=== PATIENT | male | born 1960 | race Caucasian/White ===

== ENCOUNTER → 2016-08-18 | Outpatient (CLI) | payer MEDICARE ==
[2016-08-18 10:19] LABS: Blood Urea Nitrogen 9 mg/dL (9-20); Non-African American GFR(MDRD) >60 (>60 ml/min/1.73 sqM)
--- NOTE | 2016-08-18 12:21 | CT ---
CT angiogram of the thoracic and abdominal aorta HISTORY: Marfan syndrome, aneurysm repair Helical acquisition obtained through the aorta pre- and postadministration of 100 cc Omni 350 IV. Thr ee-dimensional reconstructions performed on an alternate workstation The aortic root shows metallic density compatible with repair change. Diameter is approximately 4.2 c m at the level of the ascending aorta, aortic root. Proximal descending aorta measures approximately 3.2 cm. At the aortic hiatus the aorta measures approximately 2.8 cm, at the level of the infrarenal abdominal aorta diameter is approximately 2 cm, common iliac arteries are not aneurysmal. Internal an d external iliac arteries, common iliac arteries are patent. Inferior mesenteric, superior mesenteric , bilateral renal arteries are patent, celiac axis is patent. The heart is enlarged. Coronary artery calcifications are present. Patient is post median sternotomy. IMPRESSION:: Postop changes. Coronary artery disease and cardiomegaly. Ascending aortic aneurysm show s postop change, diameter of approximately 4.2 cm at the level of the aortic root where it measured a pproximately 4 cm on previous exam.
== END | disposition home or self-care (01) ==
LOC: RADCTMAIN 09:43 → EEVIPCON 11:00
PROVIDERS: ATTEND Internal Medicine Interventional Cardiology
DX: I25.10 Atherosclerotic heart disease of native coronary artery without angina pectoris (principal); I51.7 Cardiomegaly; I71.2 Thoracic aortic aneurysm, without rupture; Z98.890 Other specified postprocedural states
CPT/HCPCS: 82565; 84520; 75635; 71275; 36415; Q9967

== ENCOUNTER → 2017-09-11 | Outpatient (CLI) | payer MEDICARE ==
[2017-09-11 07:08] LABS: Blood Urea Nitrogen 10 mg/dL (9-20)
--- NOTE | 2017-09-11 08:19 | CT ---
EXAMINATION TYPE: CT angio chest DATE OF EXAM: 09/11/2017 7:57 AM COMPARISON: 08/18/2016 HISTORY: Marfan's syndrome CT DLP: 489 mGycm Automated exposure control for dose reduction was used. CONTRAST: CTA scan of the thorax is performed with IV Contrast, patient injected with 100 mL of Omnipaque 350, pulmonary embolism protocol. . FINDINGS: LUNGS: There are 2 pulmonary nodules within the right middle lobe measuring 2 mm which are retrospect ively stable. Additional pulmonary nodule within the left upper lobe measuring 3 mm retrospectively s table no pneumothorax, consolidation, or pleural effusion. MEDIASTINUM: The aortic root shows metallic density compatible with repair change. Diameter is approx imately 4.5 cm at the level of the ascending aorta, aortic root. Proximal descending aorta measures a pproximately 3.2 cm. At the aortic hiatus the aorta measures approximately 2.8 cm, at the level of th e infrarenal abdominal aorta diameter is approximately 2 cm, common iliac arteries are not aneurysmal . Internal and external iliac arteries, common iliac arteries are patent. Inferior mesenteric, superi or mesenteric, bilateral renal arteries are patent, celiac axis is patent. The heart is enlarged. Coronary artery calcifications are present. Patient is post median sternotomy. OTHER: There is a lesion within the right lobe of the liver measuring 3.9 cm which is only partially imaged. This is noted dating back to 2010 CT of the abdomen. Incompletely evaluated on today's exam it does appear increased in size now measuring 4 cm likely related to a hemangioma. Hypertrophic and degenerative change of the spine. No evidence of dural ectasia. IMPRESSION: 1. Postsurgical change involving the aorta with a stable area of mild aneurysmal dilation involving t he aortic root measuring 4.5 cm in greatest dimension. 2. Hepatic lesion is only partially included but is been reported dating back to 2010. Appears increa sed in size now measuring 3.9 cm but felt most likely related to hemangioma.
== END | disposition home or self-care (01) ==
LOC: RADCTMAIN 06:18
PROVIDERS: ATTEND Internal Medicine Interventional Cardiology
DX: I77.819 Aortic ectasia, unspecified site (principal); K76.9 Liver disease, unspecified; Q87.40 Marfan syndrome, unspecified; Z98.890 Other specified postprocedural states
CPT/HCPCS: 82565; 84520; 71275; 36415; Q9967

== ENCOUNTER → 2018-10-27 | Outpatient (CLI) | payer MEDICARE ==
--- NOTE | 2018-10-28 09:04 | CT ---
EXAMINATION TYPE: CT angio chest DATE OF EXAM: 10/27/2018 COMPARISON: 09/11/2017 HISTORY: Follow up for open heart surgery. History of Marfan's syndrome. CT DLP: 874 mGycm. Automated Exposure Control for Dose Reduction was Utilized. CONTRAST: CTA scan of the thorax is performed without and with IV Contrast, patient injected with 100ml mL of I sovue 370, pulmonary embolism protocol. MIP Images are created on CT scanner and reviewed. FINDINGS: LUNGS: The lungs are grossly clear, there is no concerning parenchymal mass or nodule identified. T here is no pleural effusion or pneumothorax seen. The tracheobronchial tree is patent. MEDIASTINUM: The unenhanced images demonstrate no evidence of intramural hematoma. There is postsurgi pita change of the aortic root and ascending thoracic aorta with annuloplasty performed. The aortic ro ot just above the sinotubular junction is mildly enlarged measuring 4.2 cm. The ascending thoracic ao rta is also within normal limits measuring up to 3.7 cm. There is a conventional three-vessel branch pattern of the aortic arch. Ascending thoracic aorta is slightly tortuous but measures within normal limits up to 2.7 cm. Severe coronary calcifications are seen predominating within the left anterior descending coronary ar carlos. Heart is upper limits of normal in size without pericardial effusion. There is satisfactory enh ancement of the main pulmonary artery, there is no CT evidence for central pulmonary embolism. There are no greater than 1 cm hilar or mediastinal lymph nodes. OTHER: There is a small hiatal hernia seen. The partially visualized 3.9 cm segment IVb hepatic lesio n is present dating back to 2010 [address] and incompletely characterized on this examination. Moderate mult ilevel degenerative disc disease of the thoracic Sternotomy wires are present. IMPRESSION: 1. There is redemonstrated of postsurgical change of the aortic root and ascending thoracic aorta. Th e previously seen aneurysmal dilatation of the aortic root measuring up to 4.5 cm and lesser on today 's examination with the aortic root measuring only 4.2 cm. Differences in slice selection or obliquit y could account for these changes in measurement. 2. Hepatic lesion remains similar again seen dating back to 2010.
== END | disposition home or self-care (01) ==
LOC: RADCTMAIN 16:32
PROVIDERS: ATTEND Internal Medicine Interventional Cardiology
DX: Q25.43 Congenital aneurysm of aorta (principal); K76.9 Liver disease, unspecified; Q87.40 Marfan syndrome, unspecified
CPT/HCPCS: 71275; Q9967

== ENCOUNTER → 2018-12-24 | Day surgery (SDC) | payer MEDICARE ==
[2018-12-21 12:10] VITALS: BMI 29.2
[~2018-12-24] MED LIST: BUPIVACAINE (PF) 0.5% 30 ML VIAL SQ ONE; DEXAMETHASONE SOD PHOSPHATE 10 MG/ML 1 ML VIAL IV ONE; HYDROmorphone 0.5 MG/0.5 ML SYRINGE IVP PRN; LACTATED RINGERS 1,000 ML IV SCH; LIDOCAINE 1% 20 ML VIAL (10MG/ML) FOR IV START INTRADERMA ONE; LIDOCAINE 1%-EPI 1:100,000 30 ML VIAL SQ ONE; MIDAZOLAM (PF) 2 MG/2 ML VIAL IVP ONE; MIDAZOLAM 2 MG/2 ML VIAL IV PRN; ONDANSETRON 4 MG/2 ML VIAL IVP ONE; Pre Op ABX Message 1 EACH MISC MISCELLANE ONE; ROPIVACAINE 5 MG/ML 30 ML VIAL ONE; SCOPOLAMINE 1.5MG/72HR PATCH TRANSDERM ONE; diphenhydrAMINE 50 MG/ML 1 ML VIAL ONE; fentaNYL (PF) 50 MCG/ML 2 ML AMP IVP ONE
[2018-12-24 11:55] VITALS: TEMP 98.2
--- NOTE | 2018-12-24 12:24 | P.ANPRN ---
Procedure Note - Anesthesia - Nerve Block Performed Right Axillary Single Time Out Performed: Yes Date of Procedure: 12/24/18 Procedure Start Time: 12:12 Procedure Stop Time: 12:18 Location of Patient Procedure: PreOp Indication: Acute Post-Operative Pain, Dx/Pain Location, Requested by physician Sedation Type: Sedate with meaningful contact maintained Preparation: Sterile Prep Position: Supine Catheter: None Needle Types: Pajunk Needle Gauge: 21 Technique: Ultrasound Injectate: 0.5% Ropivacaine (see comment for volume) (20ml) Blood Aspirated: No Pain Paresthesia on Injection Noted: No Resistance on Injection: Normal Events: Uneventful and Well Tolerated
[2018-12-24 13:31] VITALS: RESP 16
--- NOTE | 2018-12-24 13:53 | P.OP ---
Date of Procedure: 12/24/18 Preoperative Diagnosis: Right carpal tunnel syndrome Postoperative Diagnosis: Right carpal tunnel syndrome Procedure(s) Performed: Right endoscopic carpal tunnel release Anesthesia: MAC, regional, local Surgeon: Jamey Colon Estimated Blood Loss (ml): 1 Condition: stable Disposition: same day Indications for Procedure: The patient is a pleasant 58-year-old male who was diagnosed with right carpal tunnel syndrome. Treatment options (and associated risks and benefits) were discussed in the office. The patient and his sister (who is his legal guardian) elected to proceed with surgical release. In preop, they denied any additional questions or concerns. Consent forms were signed. The operative site was confirmed and marked. Description of Procedure: The patient was administered a regional block by the anesthesia team and then was brought to the operating suite. He was positioned supine with the operative limb on an arm board. A tourniquet was placed on the operative arm. A time-out was performed, confirming patient identifiers, the operative side, site and the procedure to be performed: all team members expressed agreement. The right upper extremity was then prepped and draped in standard, sterile fashion. The limb was exsanguinated with an Esmarch and the tourniquet was inflated. Loupe magnification was used throughout the case for optimum visualization. A 1.5 cm transverse incision was marked just proximal to the wrist flexion crease, in line with the radial border of the ring finger. The skin was sharply incised and the subcutaneous tissues were bluntly spread. The volar carpal fascia was identified and sharply incised. A synovial elevator was used to release adhesions on the underside of the transverse carpal ligament. The washboard effect was palpable but the ligament was noted to be quite short. A dilator was inserted to sound and enlarge the carpal tunnel. The hamate hook was palpable ulnarly. The side-specific guide and camera were inserted. The transverse carpal ligament was clearly visualized above. The distal edge of the ligament was identified and palpated with a probe. A rasp was used to clear synovial adhesions on the undersurface of the ligament. The endoscopic blade was inserted and the distal half of the ligament was sharply incised. Residual distal transverse fibers were released and then the proximal portion of the ligament was divided. Wide release of ligament was visually confirmed. The camera was removed. The volar carpal fascia proximal and distal to the incision was released with scissors under direct visualization. The nerve had a flattened appearance and was firmly encased in thick perineural tissue. A neurolysis was performed at the level of the incision, extending 3 cm proximally and distally. After release of these adhesions, the appeared much more mobile. The tourniquet was released after 22 minutes at 250 mm Hg. Good hemostasis obtained with held pressure. The wound was thoroughly irrigated with normal saline. The incision was closed with interrupted 4-0 Nylon sutures. Additional local anesthetic with epinephrine was injected for adjunctive postoperative pain control and hemostasis. A soft, sterile dressing was applied. All sponge, needle and instrument counts were correct at the end of the case. The patient tolerated the procedure well and was transferred to recovery in stable condition.
[2018-12-24 15:06] VITALS: BP 157/72; PULSE 88
== END | disposition home or self-care (01) ==
LOC: OR 11:27
PROVIDERS: ATTEND Orthopaedic Surgery
DX: G56.03 Carpal tunnel syndrome, bilateral upper limbs (principal); I10 Essential (primary) hypertension; M19.041 Primary osteoarthritis, right hand; E78.5 Hyperlipidemia, unspecified; Q87.40 Marfan syndrome, unspecified; Z97.3 Presence of spectacles and contact lenses; Z98.890 Other specified postprocedural states; Z79.899 Other long term (current) drug therapy; Z83.3 Family history of diabetes mellitus; Z82.49 Family history of ischemic heart disease and other diseases of the circulatory system
CPT/HCPCS: 64417; 64721; J1200; J1100; J2405; J3010; J2795; J2250

== ENCOUNTER 2019-02-08 06:30 | Day surgery (SDC) | payer MEDICARE ==
[2019-02-04 15:44] VITALS: BMI 29.2
[~2019-02-08 06:30] MED LIST changes: -BUPIVACAINE (PF) 0.5% 30 ML VIAL SQ ONE; -LIDOCAINE 1% 20 ML VIAL (10MG/ML) FOR IV START INTRADERMA ONE; +LIDOCAINE 1% 20 ML VIAL (10MG/ML) FOR IV START INTRADERMA PRN; -LIDOCAINE 1%-EPI 1:100,000 30 ML VIAL SQ ONE; -MIDAZOLAM (PF) 2 MG/2 ML VIAL IVP ONE; -ROPIVACAINE 5 MG/ML 30 ML VIAL ONE; -diphenhydrAMINE 50 MG/ML 1 ML VIAL ONE; -fentaNYL (PF) 50 MCG/ML 2 ML AMP IVP ONE
[2019-02-08] MEDS ORDERED: MIDAZOLAM 2 MG/2 ML VIAL ONE (07:41)
[2019-02-08] MEDS ORDERED: PROPOFOL 10 MG/ML 20 ML VIAL IV ONE (07:41)
[2019-02-08] MEDS ORDERED: diphenhydrAMINE 50 MG/ML 1 ML VIAL ONE (07:41)
[2019-02-08] MEDS ORDERED: fentaNYL (PF) 50 MCG/ML 2 ML AMP ONE (07:41)
[2019-02-08] MEDS ORDERED: LIDOCAINE 1% INJ 10MG/ML (20 ML MDV) ONE (07:41)
[2019-02-08] MEDS ORDERED: LIDOCAINE 1%-EPI 1:100,000 30 ML VIAL SQ ONE (07:56)
[2019-02-08] MEDS ORDERED: BUPIVACAINE (PF) 0.5% 30 ML VIAL SQ ONE ×2 (08:00→08:33)
[2019-02-08 08:50] VITALS: TEMP 98.6
--- NOTE | 2019-02-08 08:59 | P.OP ---
Date of Procedure: 02/08/19 Preoperative Diagnosis: Left carpal tunnel syndrome Postoperative Diagnosis: Left carpal tunnel syndrome Procedure(s) Performed: Left endoscopic carpal tunnel release Anesthesia: MAC, local Surgeon: Jamey Colon Estimated Blood Loss (ml): 1 Condition: stable Disposition: PACU Indications for Procedure: The patient is a 58-year-old male who was diagnosed with bilateral carpal tunnel syndrome and previously underwent surgical release of his right side. He returns with persistent symptoms on the left. Treatment options were again reviewed and he elected to proceed with surgical release. In preop, the patient and his sister denied any additional questions or concerns. Consent forms were signed. The operative site was confirmed and marked. Description of Procedure: The patient was positioned supine with the left arm on an arm board. A tourniquet was applied. Monitored anesthesia was administered uneventfully. A time-out was performed, confirming patient identifiers, the operative side, site and the procedure to be performed: all team members expressed agreement. Using aseptic technique, local anesthetic was injected into the subcutaneous tissues around the planned incision. The left upper extremity was then prepped and draped in standard, sterile fashion. The limb was exsanguinated with an Esmarch and the tourniquet was inflated. Loupe magnification was used throughout the case for optimum visualization. A 1.5 cm transverse incision was marked just proximal to the wrist flexion crease, in line with the radial border of the ring finger. The skin was sharply incised and the subcutaneous tissues were bluntly spread. The volar carpal fascia was identified and sharply incised. The fascia was quite tight. To facilitate distal exposure, the proximal volar carpal/antebrachial fascia was released with scissors under direct visualization. A synovial elevator was inserted and used to release adhesions on the underside of the transverse carpal ligament. The washboard effect was palpable. A dilator was inserted to sound and enlarge the carpal tunnel. The hamate hook was palpable ulnarly. The side-specific guide and camera were inserted. The transverse carpal ligament was clearly visualized above. The distal edge of the ligament was identified and palpated with a probe. A rasp was used to clear the remaining synovial adhesions. The endoscopic blade was inserted and the distal half of the ligament was sharply incised. Residual distal transverse fibers were released and then the proximal portion of the ligament was divided. The ligament was very dense and the cut leaflets sprung apart widely after release. The camera was removed. At the level of the incision, the median nerve was encased in a sheet of thick perineural tissue, causing persistent compression. A neurolysis was performed which substantially improved the appearance and mobility of the nerve. The tourniquet was released after 25 minutes at 250 mmHg. Good hemostasis was obtained with held pressure. The wound was thoroughly irrigated with normal saline. The incision was closed with interrupted 4-0 Nylon sutures. Marcaine without epinephrine was injected for adjunctive postoperative pain control. A soft, sterile dressing was applied. All sponge, needle and instrument counts were correct at the end of the case. The patient tolerated the procedure well and was transferred to recovery in stable condition.
[2019-02-08 09:51] VITALS: BP 139/85; PULSE 70; RESP 16
== END 2019-02-08 10:10 | disposition home or self-care (01) ==
LOC: OR 06:30
PROVIDERS: ATTEND Orthopaedic Surgery
DX: G56.02 Carpal tunnel syndrome, left upper limb (principal); M24.542 Contracture, left hand; M24.541 Contracture, right hand; Q87.40 Marfan syndrome, unspecified; I10 Essential (primary) hypertension; E78.5 Hyperlipidemia, unspecified; F32.9 Major depressive disorder, single episode, unspecified; Z79.82 Long term (current) use of aspirin; Z79.899 Other long term (current) drug therapy; Z97.3 Presence of spectacles and contact lenses; Z83.3 Family history of diabetes mellitus; Z82.49 Family history of ischemic heart disease and other diseases of the circulatory system
CPT/HCPCS: 29848; J2250; J1200; J1100; J2405; J2001; J3010; J2704

== ENCOUNTER → 2019-12-16 | Outpatient (CLI) | payer MEDICARE ==
--- NOTE | 2019-12-16 11:47 | CT ---
EXAMINATION TYPE: CT angio chest DATE OF EXAM: 12/16/2019 11:32 AM COMPARISON: 10/27/2018 HISTORY: Marfans syndrome. CT DLP: 944.3 mGycm Automated exposure control for dose reduction was used. CONTRAST: CTA scan of the thorax is performed with IV Contrast, patient injected with 100 mL of Isovue 370, pul monary embolism protocol. . FINDINGS: LUNGS: The lungs are grossly clear, there is no concerning parenchymal mass or nodule identified. T here is no pleural effusion or pneumothorax seen. The tracheobronchial tree is patent. 2 mm calcifie d granuloma left upper lobe. Additional tiny 1 mm nodule too small to characterize superior segment r ight lower lobe image 27. The noncalcified 2 mm nodule and 1 mm nodule image 36 superior segment righ t lower lobe. Findings retrospectively stable from prior exam. MEDIASTINUM: The unenhanced images demonstrate no evidence of intramural hematoma. There is postsurgical change of the aortic root and ascending thoracic aorta with annuloplasty performed. The aortic root just above the sinotubular junction is mildly enlarged measuring 4.2 cm. The ascending thoracic aorta is also w ithin normal limits measuring up to 3.7 cm. There is a conventional three- vessel branch pattern of t he aortic arch. Ascending thoracic aorta is slightly tortuous but measures within normal limits up to 2.7 cm. Severe coronary calcifications are seen predominating within the left anterior descending coronary ar carlos. Heart is upper limits of normal in size without pericardial effusion. There is satisfactory enh ancement of the main pulmonary artery, there is no CT evidence for central pulmonary embolism. There are no greater than 1 cm hilar or mediastinal lymph nodes. OTHER: There is a small hiatal hernia seen. The partially visualized 3.9 cm segment IVb hepatic lesi on is present dating back to [address] and incompletely characterized on this examination. Moderate mul tilevel degenerative disc disease of the thoracic Sternotomy wires are present. Trace of gynecomastia noted. IMPRESSION: 1. Postsurgical changes with stable 4.2 cm mild aneurysmal dilation ascending aorta. 2. Cardiomegaly with coronary artery calcification correlate clinically. 3. Multiple sub-5 mm pulmonary nodules too small to characterize are stable from the prior exam and c ould be followed on a 12 month basis. Largest nodule is calcified compatible with granuloma.
== END | disposition home or self-care (01) ==
LOC: RADCTMAIN 10:43
PROVIDERS: ATTEND Internal Medicine Interventional Cardiology
DX: I71.2 Thoracic aortic aneurysm, without rupture (principal); I51.7 Cardiomegaly; Q87.40 Marfan syndrome, unspecified
CPT/HCPCS: 71275; Q9967

== ENCOUNTER → 2020-01-27 | Outpatient (CLI) | payer MEDICARE ==
[2020-01-27 13:18] LABS: HCT 38.3 % (39.0-53.0); HGB 12.3 gm/dL (13.0-17.5); MCH 26.5 pg (25.0-35.0); MCV 82.8 fL (80.0-100.0); Mean Platelet Volume 8.3; Platelet Count 182 k/uL (150-450); RBC 4.63 m/uL (4.30-5.90); RDW 14.7 % (11.5-15.5); WBC 4.3 k/uL (3.8-10.6)
[2020-01-27 19:39] LABS: Ferritin 71.3 ng/mL (22.0-322.0)
[2020-01-27 20:05] LABS: % Iron Saturation 7.8 (15.00-50.00); African American GFR (CKD) 128.4 (60.0-200.0); Anion Gap 5.4 mmol/L (4.00-12.00); BUN/Creat Ratio 18.33 Ratio (12.00-20.00); Calcium 9.1 mg/dL (8.7-10.3); Carbon Dioxide 27.6 mmol/L (21.6-31.8); Non-African American GFR(CKD) 110.8 (60.0-200.0)
== END | disposition home or self-care (01) ==
LOC: LABWHC1 11:22
PROVIDERS: ATTEND Family Medicine
DX: E78.5 Hyperlipidemia, unspecified (principal); D50.9 Iron deficiency anemia, unspecified; I10 Essential (primary) hypertension
CPT/HCPCS: 36415; 80048; 82728; 83540; 83550; 84450; 84460; 85027

== ENCOUNTER 2021-05-15 18:27 | Emergency (ER) | payer MEDICARE ==
[2021-05-15 19:27] VITALS: TEMP 99.4
--- NOTE | 2021-05-15 20:49 | ED ---
General Adult HPI - General Chief complaint: Upper Respiratory Infection Stated complaint: hypertension, cough Time Seen by Provider: 05/15/21 20:30 Source: patient Mode of arrival: ambulatory Limitations: no limitations - History of Present Illness Initial comments: 60-year-old male with a past medical history of hypertension, Marfan syndrome presents to the emergency room for a chief complaint of not feeling well. Patient has had a cough and congestion for the past couple weeks. Also had a sore throat. Patient's family member at bedside states that the nurse at [facility] called her to tell her his heartbeat was irregular as well. Patient does not have a history of this.Patient has no other complaints at this time including shortness of breath, chest pain, abdominal pain, nausea or vomiting, headache, or visual changes. - Related Data Home Medications Medication Instructions Recorded Confirmed Aspirin 325 mg PO DAILY 12/22/18 05/15/21 Atorvastatin [Lipitor] 20 mg PO DAILY 12/22/18 05/15/21 Multivitamins, Thera [Multivitamin 1 tab PO DAILY 12/22/18 05/15/21 (formulary)] PARoxetine HCL [Paxil] 40 mg PO DAILY 12/22/18 05/15/21 Potassium Chloride [Potassium 30 meq PO DAILY 12/22/18 05/15/21 Chloride ER] Terazosin [Hytrin] 5 mg PO HS 12/22/18 05/15/21 Triamterene-Hctz 37.5-25Mg 1 cap PO DAILY 12/22/18 05/15/21 [Dyazide 37.5-25 Capsule] Verapamil HCl [Verapamil ER] 240 mg PO DAILY 12/22/18 05/15/21 lisinopriL 20 mg PO BID 12/22/18 05/15/21 Cholecalciferol [Vitamin D3 (25 25 mcg PO DAILY 05/15/21 05/15/21 Mcg = 1000 Iu)] Ferrous Sulfate [Feosol] 325 mg PO DAILY 05/15/21 05/15/21 Triamcinolone 0.1% Cream [Kenalog 1 applicatio TOPICAL BID 05/15/21 05/15/21 0.1% Cream] Previous Rx's Medication Instructions Recorded Doxycycline [Vibramycin] 100 mg PO BID 10 Days #20 capsule 05/15/21 Allergies Allergy/AdvReac Type Severity Reaction Status Date / Time No Known Allergies Allergy Verified 05/15/21 22:04 Review of Systems ROS Statement: Those systems with pertinent positive or pertinent negative responses have been documented in the HPI. ROS Other: All systems not noted in ROS Statement are negative. Past Medical History Past Medical History: Hypertension, Syncope Additional Past Medical History / Comment(s): Marfans Syndrome. Mentality of an 9 yr old. History of Any Multi-Drug Resistant Organisms: None Reported Past Surgical History: Coronary Bypass/CABG, Orthopedic Surgery Additional Past Surgical History / Comment(s): Had Aorta rebuilt, knee arthroscopy, right carpal tunnel release December Past Anesthesia/Blood Transfusion Reactions: No Reported Reaction Past Psychological History: Anxiety Smoking Status: Never smoker Past Alcohol Use History: None Reported Past Drug Use History: None Reported - Past Family History Mother Family Medical History: No Reported History General Exam Limitations: no limitations General appearance: alert, in no apparent distress Head exam: Present: atraumatic Eye exam: Present: normal appearance, PERRL, EOMI. Absent: scleral icterus, conjunctival injection ENT exam: Present: normal exam, normal oropharynx, mucous membranes moist, normal external ear exam Neck exam: Present: normal inspection, full ROM. Absent: tenderness Respiratory exam: Present: normal lung sounds bilaterally. Absent: respiratory distress, wheezes Cardiovascular Exam: Present: regular rate, normal rhythm, normal heart sounds GI/Abdominal exam: Present: soft, normal bowel sounds. Absent: distended, tenderness Neurological exam: Present: alert Course Vital Signs 05/15/21 05/15/21 05/15/21 19:24 22:12 22:57 Temperature 99.4 F Pulse Rate 100 96 Respiratory 20 18 Rate Blood Pressure 149/95 156/107 154/98 O2 Sat by Pulse 96 97 Oximetry Medical Decision Making - Medical Decision Making Vitals are stable. Patient is well-appearing. No resp distress. Coronavirus i s negative. Strep is negative. CBC CMP unremarkable. Chest x-ray did show interstitial infiltrates, will be treated with doxycycline. Patient also had an EKG showing a rate controlled atrial fibrillation. Roddy-vasc score is 1 and patient states his doctor had previously not wanted him anticoagulated given his Marfan syndrome. At this time patient is stable for outpatient follow-up for atrial fibrillation. He will return for any worsening symptoms. - Lab Data Result diagrams: 05/15/21 22:12 05/15/21 22:12 Lab Results 05/15/21 05/15/21 05/15/21 Range/Units 19:30 21:11 22:12 WBC 5.6 (3.8-10.6) k/uL RBC 4.97 (4.30-5.90) m/uL Hgb 13.3 (13.0-17.5) gm/dL Hct 40.0 (39.0-53.0) % MCV 80.5 (80.0-100.0) fL MCH 26.7 (25.0-35.0) pg MCHC 33.2 (31.0-37.0) g/dL RDW 15.2 (11.5-15.5) % Plt Count 234 (150-450) k/uL MPV 8.4 Neutrophils % 71 % Lymphocytes % 18 % Monocytes % 8 % Eosinophils % 1 % Basophils % 0 % Neutrophils # 4.0 (1.3-7.7) k/uL Lymphocytes # 1.0 (1.0-4.8) k/uL Monocytes # 0.4 (0-1.0) k/uL Eosinophils # 0.0 (0-0.7) k/uL Basophils # 0.0 (0-0.2) k/uL PT (9.0-12.0) sec INR (<1.2) APTT (22.0-30.0) sec Sodium (137-145) mmol/L Potassium (3.5-5.1) mmol/L Chloride (98-107) mmol/L Carbon Dioxide (22-30) mmol/L Anion Gap mmol/L BUN (9-20) mg/dL Creatinine (0.66-1.25) mg/dL Est GFR (CKD-EPI)AfAm (>60 ml/min/1.73 sqM) Est GFR (CKD-EPI)NonAf (>60 ml/min/1.73 sqM) Glucose (74-99) mg/dL Calcium (8.4-10.2) mg/dL Magnesium (1.6-2.3) mg/dL Total Bilirubin (0.2-1.3) mg/dL AST (17-59) U/L ALT (4-49) U/L Alkaline Phosphatase (38-126) U/L Total Protein (6.3-8.2) g/dL Albumin (3.5-5.0) g/dL Coronavirus (PCR) Not Detected (Not Detectd) Group A Strep Rapid Negative (Negative) 05/15/21 05/15/21 Range/Units 22:12 22:12 WBC (3.8-10.6) k/uL RBC (4.30-5.90) m/uL Hgb (13.0-17.5) gm/dL Hct (39.0-53.0) % MCV (80.0-100.0) fL MCH (25.0-35.0) pg MCHC (31.0-37.0) g/dL RDW (11.5-15.5) % Plt Count (150-450) k/uL MPV Neutrophils % % Lymphocytes % % Monocytes % % Eosinophils % % Basophils % % Neutrophils # (1.3-7.7) k/uL Lymphocytes # (1.0-4.8) k/uL Monocytes # (0-1.0) k/uL Eosinophils # (0-0.7) k/uL Basophils # (0-0.2) k/uL PT 11.2 (9.0-12.0) sec INR 1.1 (<1.2) APTT 25.2 (22.0-30.0) sec Sodium 137 (137-145) mmol/L Potassium 3.8 (3.5-5.1) mmol/L Chloride 105 (98-107) mmol/L Carbon Dioxide 24 (22-30) mmol/L Anion Gap 8 mmol/L BUN 11 (9-20) mg/dL Creatinine 0.50 L (0.66-1.25) mg/dL Est GFR (CKD-EPI)AfAm >90 (>60 ml/min/1.73 sqM) Est GFR (CKD-EPI)NonAf >90 (>60 ml/min/1.73 sqM) Glucose 101 H (74-99) mg/dL Calcium 8.6 (8.4-10.2) mg/dL Magnesium 2.1 (1.6-2.3) mg/dL Total Bilirubin 0.7 (0.2-1.3) mg/dL AST 27 (17-59) U/L ALT 25 (4-49) U/L Alkaline Phosphatase 94 (38-126) U/L Total Protein 6.8 (6.3-8.2) g/dL Albumin 3.8 (3.5-5.0) g/dL Coronavirus (PCR) (Not Detectd) Group A Strep Rapid (Negative) Disposition Clinical Impression: Atrial fibrillation with controlled ventricular rate, Pneumonia Disposition: HOME SELF-CARE Condition: Good Instructions (If sedation given, give patient instructions): A-fib (Atrial Fibrillation) (ED), Pneumonia (ED) Additional Instructions: Please take medications as directed. Please follow-up with your doctor in one to 2 days to discuss findings in the ER as well as atrial fibrillation. Return to the emergency room for any worsening symptoms. Prescriptions: Doxycycline [Vibramycin] 100 mg PO BID 10 Days #20 capsule Is patient prescribed a controlled substance at d/c from ED?: No Referrals: Haile Bauer DO [Primary Care Provider] - 1-2 days Time of Disposition: 23:00
--- NOTE | 2021-05-15 22:07 | XR ---
EXAMINATION TYPE: XR chest 2V DATE OF EXAM: 05/15/2021 COMPARISON: 01/23/2016 HISTORY: Cough TECHNIQUE: FINDINGS: There are sternal wires. Heart is borderline enlarged. There is no heart failure. There is coarsening of the interstitial markings. IMPRESSION: Mild pulmonary interstitial infiltrates appear new compared to old exam. Borderline cardi omegaly.
[2021-05-15 22:13] VITALS: PULSE 96; RESP 18
[2021-05-15 22:29] LABS: Basophils % (A) 0 %; Eosinophils % (A) 1 %; HGB 13.3 gm/dL (13.0-17.5); Lymphocytes % (A) 18 %; MCH 26.7 pg (25.0-35.0); MCHC 33.2 g/dL (31.0-37.0); MCV 80.5 fL (80.0-100.0); Mean Platelet Volume 8.4; Monocytes # (A) 0.4 k/uL (0-1.0); Monocytes % (A) 8 %; Neutrophils % (A) 71 %; Platelet Count 234 k/uL (150-450); RBC 4.97 m/uL (4.30-5.90); RDW 15.2 % (11.5-15.5); WBC 5.6 k/uL (3.8-10.6)
[2021-05-15 22:42] LABS: INR 1.1 (<1.2); Partial Thromboplastin Time 25.2 sec (22.0-30.0); Prothrombin Time 11.2 sec (9.0-12.0)
[2021-05-15 22:45] LABS: ALT 25 U/L (4-49); AST 27 U/L (17-59); African American GFR (CKD) >90 (>60 ml/min/1.73 sqM); Albumin 3.8 g/dL (3.5-5.0); Alkaline Phosphatase 94 U/L (38-126); Anion Gap 8 mmol/L; Blood Urea Nitrogen 11 mg/dL (9-20); Calcium 8.6 mg/dL (8.4-10.2); Carbon Dioxide 24 mmol/L (22-30); Chloride 105 mmol/L (98-107); Glucose 101 mg/dL (74-99); Magnesium 2.1 mg/dL (1.6-2.3); Non-African American GFR(CKD) >90 (>60 ml/min/1.73 sqM); Potassium 3.8 mmol/L (3.5-5.1); Sodium 137 mmol/L (137-145); Total Bilirubin 0.7 mg/dL (0.2-1.3); Total Protein 6.8 g/dL (6.3-8.2)
[2021-05-15 22:57] VITALS: BP 154/98
[2021-05-15] MEDS ORDERED: DOXYCYCLINE 100 MG CAP PO STA (22:59)
== END 2021-05-15 23:20 | disposition home or self-care (01) ==
LOC: EC 18:27
DX: J18.9 Pneumonia, unspecified organism (principal); I48.91 Unspecified atrial fibrillation; I10 Essential (primary) hypertension; F41.9 Anxiety disorder, unspecified; Z79.82 Long term (current) use of aspirin; Z79.899 Other long term (current) drug therapy; Z95.1 Presence of aortocoronary bypass graft; Z20.822 Contact with and (suspected) exposure to COVID-19
CPT/HCPCS: 36415; 71046; 80053; 83735; 85025; 85610; 85730; 87081; 87430; 87635; 93005; 99284

== ENCOUNTER → 2022-01-09 | Outpatient (CLI) | payer MEDICARE ==
--- NOTE | 2022-01-09 14:29 | CT ---
CT CHEST FOR PULMONARY EMBOLISM. EXAMINATION TYPE: CT angio chest DATE OF EXAM: 01/09/2022 INDICATION: Marfans syndrome. CT DLP: 1762.8 mGycm, Automated exposure control for dose reduction was used. CONTRAST: Patient injected with 100 ML mL of Isovue 370. COMPARISON: 12/16/2019 TECHNIQUE: CT of the chest is performed on a spiral scan at 2 mm thick sections. Study is performed with intravenous contrast timed for evaluation for the aorta. This will limit additional portions of the evaluation. 3-D MIP images reconstructed by the technologist are reviewed on the computer in the coronal and sagittal planes. FINDINGS: There is a three-vessel arch. Vertebral arteries are codominant. Aortic bruit ascending thoracic aort a and aortic arch and descending thoracic aorta appear normal. No aneurysmal dilatation is evident. No mediastinal or hilar adenopathy enlarged by CT criteria is evident. The ascending aorta diameter at the level of the main pulmonary artery is 3.7 cm. The main pulmonary artery diameter at the bifur cation is 3.5 cm. Lung windows are clear. Limited CT section through the upper abdomen are unremarkable. IMPRESSIONS: 1. No suspicious changes within the thoracic aorta.
== END | disposition home or self-care (01) ==
LOC: RADCTMAIN 13:15
PROVIDERS: ATTEND Internal Medicine Interventional Cardiology
DX: Q87.40 Marfan syndrome, unspecified (principal); I71.2 Thoracic aortic aneurysm, without rupture
CPT/HCPCS: 71275; Q9967

== ENCOUNTER 2022-03-19 06:06 | Day surgery (SDC) | payer MEDICARE ==
[2022-03-18 10:25] VITALS: BMI 30.2
[~2022-03-19 06:06] MED LIST changes: -DEXAMETHASONE SOD PHOSPHATE 10 MG/ML 1 ML VIAL IV ONE; -HYDROmorphone 0.5 MG/0.5 ML SYRINGE IVP PRN; -LIDOCAINE 1% 20 ML VIAL (10MG/ML) FOR IV START INTRADERMA PRN; -MIDAZOLAM 2 MG/2 ML VIAL IV PRN; -ONDANSETRON 4 MG/2 ML VIAL IVP ONE; -Pre Op ABX Message 1 EACH MISC MISCELLANE ONE; -SCOPOLAMINE 1.5MG/72HR PATCH TRANSDERM ONE; +SODIUM CHLORIDE 0.9% 1,000 ML IV SCH
[2022-03-19 07:02] VITALS: TEMP 98.8
[2022-03-19 07:17] LABS: African American GFR (CKD) >90 (>60 ml/min/1.73 sqM); Anion Gap 12 mmol/L; Blood Urea Nitrogen 12 mg/dL (9-20); Carbon Dioxide 25 mmol/L (22-30); Chloride 105 mmol/L (98-107); Glucose 100 mg/dL (74-99); Non-African American GFR(CKD) >90 (>60 ml/min/1.73 sqM); Sodium 142 mmol/L (137-145)
[2022-03-19] MEDS ORDERED: PROPOFOL 10 MG/ML 20 ML VIAL IV ONE (07:19)
[2022-03-19] MEDS ORDERED: LIDOCAINE 2% INJ 20 MG/ML (2 ML VIAL) ONE (07:19)
[2022-03-19] MEDS ORDERED: BENZOCAINE SPRAY 1 CAN TOPICAL ONE (07:20)
[2022-03-19 07:21] LABS: Potassium 3.9 mmol/L (3.5-5.1)
[2022-03-19] MEDS ORDERED: SODIUM CHLORIDE 0.9% 1,000 ML IV SCH (07:45)
--- NOTE | 2022-03-19 07:50 | P.PCN ---
Date of Procedure: 03/19/22 Description of Procedure: Indication: Atrial fibrillation Procedure Description: After explaining the procedure to the patient, it's risk and complications, blood pressure, heart rate and O2 saturation were monitored. The throat was sprayed with Cetacaine. Patient received sedation per anesthesia department. The probe was introduced into the esophagus without difficulty. Images were obtained. Following that, the probe was removed. There was no immediate complication. Findings: Left atrial size is severely dilated, spontaneous contrast was noted, left atrial appendage is normal. Left ventricle size and systolic function are normal. The intra-atrial septum is shifted to the right. The mitral valve reveals mild thickening of the mitral valve leaflets, aortic valve appears to be normal, tricuspid valve is normal. No pericardial effusion was noted. Contrast bubble study revealed no shunting across the intra-atrial septum. Descending thoracic aorta appears to be normal. Ascending aorta appears to be normal with evidence of surgical repair Doppler: Pulse wave and color Doppler were obtained, severe eccentric mitral regurgitation with mild tricuspid and mild to moderate aortic regurgitation was noted. No shunting by color Doppler study Conclusion: 1. Dilated left atrium with spontaneous contrast and no evidence of thrombus in the left atrial appendage 2. Normal left ventricular size and systolic function 3. Severe eccentric mitral regurgitation was mild tricuspid and mild to moderate aortic regurgitation 4. No pericardial effusion 5. No shunting across the intra-atrial septum
--- NOTE | 2022-03-19 07:52 | P.PCN ---
Date of Procedure: 03/19/22 Description of Procedure: Cardioversion: Indication: Atrial fibrillation Procedure: After explaining the procedure to the patient, after obtaining transesophageal echocardiogram and sedated state. Anesthesia department a synchronized cardioversion using 150, 200, 200 J was successful in restoring sinus mechanism. The patient had multiple PVCs. There was no immediate complications.
[2022-03-19 07:53] VITALS: RESP 16
[2022-03-19] MEDS ORDERED: VERAPAMIL SR 240 MG TABLET.ER PO SCH (09:00)
[2022-03-19] MEDS ORDERED: NON FORMULARY DRUG (Potassium Chloride [Potassium Chloride Er] 10 MEQ Capsule.Er) PO SCH (09:00)
[2022-03-19] MEDS ORDERED: NON FORMULARY DRUG (Paroxetine Hcl [Paxil] 40 MG Tablet) PO SCH (09:00)
[2022-03-19] MEDS ORDERED: CHOLECALCIFEROL 10 MCG (400 IU) TABLET PO SCH (09:00)
[2022-03-19] MEDS ORDERED: MULTIVITAMINS, THERA 1 EACH TAB PO SCH (09:00)
[2022-03-19] MEDS ORDERED: ATORVASTATIN 20 MG TAB PO SCH (09:00)
[2022-03-19] MEDS ORDERED: FERROUS SULFATE 325 MG TAB PO SCH (09:00)
[2022-03-19] MEDS ORDERED: lisinopriL 20 MG TAB PO SCH (09:00)
[2022-03-19] MEDS ORDERED: RIVAROXABAN 20 MG TAB PO SCH (09:00)
[2022-03-19] MEDS ORDERED: TRIAMTERENE-HCTZ 37.5-25MG 1 EACH CAP PO SCH (09:00)
[2022-03-19 09:30] VITALS: BP 188/98; PULSE 76
[2022-03-19] MEDS ORDERED: POTASSIUM CHLORIDE ER 10 MEQ TAB.ER.PRT PO SCH (21:00)
[2022-03-19] MEDS ORDERED: TERAZOSIN 5 MG PO SCH (21:00)
== END 2022-03-19 09:31 | disposition home or self-care (01) ==
LOC: CATHCVL 06:06
PROVIDERS: ATTEND Internal Medicine Interventional Cardiology
DX: I48.11 Longstanding persistent atrial fibrillation (principal); I10 Essential (primary) hypertension; I49.9 Cardiac arrhythmia, unspecified; Z87.891 Personal history of nicotine dependence; I73.9 Peripheral vascular disease, unspecified; Z79.891 Long term (current) use of opiate analgesic; Z79.890 Hormone replacement therapy; Z79.899 Other long term (current) drug therapy; Z20.822 Contact with and (suspected) exposure to COVID-19; I08.3 Combined rheumatic disorders of mitral, aortic and tricuspid valves; E78.2 Mixed hyperlipidemia
CPT/HCPCS: 93312; 93320; 93325; 92960; 80048; 87635; J2704; J2001

== ENCOUNTER → 2022-04-22 | Outpatient (CLI) | payer MEDICARE ==
--- NOTE | 2022-04-22 10:41 | CT ---
EXAMINATION TYPE: CT iac w con DATE OF EXAM: 04/22/2022 COMPARISON: HISTORY: Cholesteatoma right ear CT DLP: 150 mGycm Automated exposure control for dose reduction was used. CONTRAST: CT scan of the IACs is performed with IV Contrast, patient injected with 70 mL of Isovue 300. FINDINGS: The external auditory canals are patent bilaterally, there may be some cerumen in the left external auditory canal. Mastoid air cells show no evidence of abnormal opacification bilaterally. The middle ear ossicles are symmetric and unremarkable. There is no evidence of suspicious surroundi ng soft tissue density to suggest abnormal mass. The scutum is preserved bilaterally. The cochlea a nd the semicircular canals are symmetric and unremarkable. Vestibular aqueduct and internal carotid canal appear unremarkable. Temporomandibular joints are maintained bilaterally. There is no erosion of the scutum bilaterally. Tympanic membrane show symmetric appearance. Just superficial to the tymp anic membrane on the right there is a linear density seen on coronal image #98 within the external au ditory canal which is indeterminate, direct visualization recommended. Inflammatory changes present within the maxillary sinus, there is mucosal disease present bilaterally . IMPRESSION: Mild sinus disease. Indeterminate linear density right external auditory canal appears we blike, axial image 33. Additional findings described above.
== END | disposition home or self-care (01) ==
LOC: RADCTMAIN 08:15
PROVIDERS: ATTEND Otolaryngology
DX: J32.9 Chronic sinusitis, unspecified (principal)
CPT/HCPCS: 70481; Q9967

== ENCOUNTER 2022-04-23 15:04 | Emergency (ER) | payer MEDICARE ==
[2022-04-23 15:27] VITALS: TEMP 98
[2022-04-23 16:04] LABS: Appearance,Urine Clear (Clear); Bilirubin,Urine Negative (Negative); Blood,Urine Negative (Negative); Color,Urine Yellow; Glucose,Urine (UA) Negative (Negative); Ketones,Urine Negative (Negative); Leukocyte Esterase,Urine Negative (Negative); Nitrite,Urine Negative (Negative); PH, Urine 6.5 (5.0-8.0); Protein,Urine Negative (Negative); Specific Gravity,Urine 1.011 (1.001-1.035); Urobilinogen,Urine <2.0 mg/dL (<2.0)
[2022-04-23 16:16] LABS: Basophils % (A) 1 %; Eosinophils % (A) 1 %; HCT 42.3 % (39.0-53.0); HGB 14.4 gm/dL (13.0-17.5); Lymphocytes # (A) 0.6 k/uL (1.0-4.8); Lymphocytes % (A) 9 %; MCH 28.2 pg (25.0-35.0); MCHC 34.1 g/dL (31.0-37.0); MCV 82.8 fL (80.0-100.0); Mean Platelet Volume 9.3; Monocytes # (A) 0.4 k/uL (0-1.0); Monocytes % (A) 5 %; Neutrophils # (A) 5.7 k/uL (1.3-7.7); Neutrophils % (A) 83 %; Platelet Count 152 k/uL (150-450); RBC 5.11 m/uL (4.30-5.90); RDW 14.6 % (11.5-15.5); WBC 6.9 k/uL (3.8-10.6)
[2022-04-23 16:27] LABS: ALT 54 U/L (4-49); AST 34 U/L (17-59); African American GFR (CKD) >90 (>60 ml/min/1.73 sqM); Albumin 4.5 g/dL (3.5-5.0); Alkaline Phosphatase 104 U/L (38-126); Anion Gap 13 mmol/L; Blood Urea Nitrogen 10 mg/dL (9-20); Calcium 8.6 mg/dL (8.4-10.2); Carbon Dioxide 22 mmol/L (22-30); Chloride 100 mmol/L (98-107); Glucose 124 mg/dL (74-99); Non-African American GFR(CKD) >90 (>60 ml/min/1.73 sqM); Potassium 3.3 mmol/L (3.5-5.1); Sodium 135 mmol/L (137-145); Total Bilirubin 0.6 mg/dL (0.2-1.3); Total Protein 7.1 g/dL (6.3-8.2)
[2022-04-23 16:28] LABS: Prothrombin Time 11.2 sec (9.0-12.0)
[2022-04-23] MEDS ORDERED: SODIUM CHLORIDE 0.9% 1,000 ML IV STA (16:34)
--- NOTE | 2022-04-23 17:40 | ED ---
Dizziness HPI - General Chief Complaint: Dizziness Stated Complaint: hypertension,dizziness Time Seen by Provider: 04/23/22 16:06 Source: patient Mode of arrival: ambulatory Limitations: no limitations - History of Present Illness Initial Comments: Patient is a 61-year-old male with history of A. fib and Marfan syndrome presenting with chief complaint of dizziness. Patient is accompanied by family members, patient has developmental delay and difficulty communicating. He resides at an assisted living facility. Patient was at work today when around 2 PM he started experiencing dizziness. He felt like his heart was pounding. Family at bedside states they were told there was no loss of consciousness. Patient admits to continued sensation of "heart pounding" on exertion. It is alleviated with rest. Family states he was complaining of mild chest pain earlier, at time of assessment patient denies any chest pain. Denies nausea, vomiting, abdominal pain. No headache, vision or hearing changes, neck pain. No numbness or tingling. No weakness. - Related Data Home Medications Medication Instructions Recorded Confirmed Atorvastatin [Lipitor] 20 mg PO DAILY 12/22/18 04/23/22 Multivitamins, Thera [Multivitamin 1 tab PO DAILY 12/22/18 04/23/22 (formulary)] PARoxetine HCL [Paxil] 40 mg PO DAILY 12/22/18 04/23/22 Potassium Chloride [Potassium 10 meq PO DAILY 12/22/18 04/23/22 Chloride ER] Terazosin [Hytrin] 5 mg PO HS 12/22/18 04/23/22 Triamterene-Hctz 37.5-25Mg 1 cap PO DAILY 12/22/18 04/23/22 [Dyazide 37.5-25 Capsule] Verapamil HCl [Verapamil ER] 240 mg PO DAILY 12/22/18 04/23/22 lisinopriL 20 mg PO BID 12/22/18 04/23/22 Ferrous Sulfate [Iron (65 MG 325 mg PO DAILY 05/15/21 04/23/22 Elemental)] Cholecalciferol [Vitamin D3 (10 10 mcg PO DAILY 03/18/22 04/23/22 Mcg = 400 Iu)] Potassium Chloride ER [K-Dur 10] 20 meq PO HS 03/18/22 04/23/22 Rivaroxaban [Xarelto] 20 mg PO W/SUPPER 03/18/22 04/23/22 hydrALAZINE HCL [Apresoline] 25 mg PO BID 04/23/22 04/23/22 Allergies Allergy/AdvReac Type Severity Reaction Status Date / Time No Known Allergies Allergy Verified 03/19/22 06:52 Review of Systems ROS Statement: Those systems with pertinent positive or pertinent negative responses have been documented in the HPI. ROS Other: All systems not noted in ROS Statement are negative. Past Medical History Past Medical History: Atrial Fibrillation, Hypertension, Syncope Additional Past Medical History / Comment(s): See Dr Rojas's H&P. Marfans Syndrome. Mentality of an 9 yr old. History of Any Multi-Drug Resistant Organisms: None Reported Past Surgical History: Coronary Bypass/CABG, Orthopedic Surgery Additional Past Surgical History / Comment(s): "Had Aorta rebuilt in 2015", knee arthroscopy, right carpal tunnel release. Past Anesthesia/Blood Transfusion Reactions: No Reported Reaction Past Psychological History: Anxiety Smoking Status: Never smoker Past Alcohol Use History: None Reported Past Drug Use History: None Reported - Past Family History Mother Family Medical History: No Reported History General Exam Limitations: no limitations General appearance: alert, in no apparent distress Head exam: Present: atraumatic, normocephalic, normal inspection Eye exam: Present: normal appearance, PERRL, EOMI. Absent: scleral icterus, conjunctival injection, periorbital swelling Pupils: Present: normal accommodation Neck exam: Present: normal inspection Course Vital Signs 04/23/22 04/23/22 04/23/22 15:23 18:00 18:30 Temperature 98 F Pulse Rate 67 86 69 Respiratory 16 24 15 Rate Blood Pressure 176/94 171/104 167/94 O2 Sat by Pulse 96 Oximetry 04/23/22 20:24 Temperature Pulse Rate 71 Respiratory 15 Rate Blood Pressure 159/67 O2 Sat by Pulse 99 Oximetry Medical Decision Making - Medical Decision Making Patient is a 61-year-old male with history of Marfan syndrome presenting with chief complaint of dizziness. Patient had sudden onset dizziness while at work today. He also admits to sensation of "heart pounding". Physical examination is unremarkable. CBC shows no leukocytosis or anemia. Coags are WNL. Potassium is 3.3 he will receive oral replacement. Sodium 135 receiving IV fluids. Troponin is less than 0.012. Urine is negative. Brain CT shows no acute process. Chest x-ray shows signs of atelectasis. On reassessment patient shows improvement, feeling better after fluids and medication. Patient is given his evening BP meds here in the ER. Follow-up with PCP. Report back to ER with any new or worsening symptoms. Discussed return parameters and answered a ll questions. Patient conveyed verbal understanding and agreed to the plan. I discussed this case in detail with my attending Dr. Guillaume - Lab Data Result diagrams: 04/23/22 15:58 04/23/22 15:58 Lab Results 04/23/22 04/23/22 04/23/22 Range/Units 15:58 15:58 15:58 WBC 6.9 (3.8-10.6) k/uL RBC 5.11 (4.30-5.90) m/uL Hgb 14.4 (13.0-17.5) gm/dL Hct 42.3 (39.0-53.0) % MCV 82.8 (80.0-100.0) fL MCH 28.2 (25.0-35.0) pg MCHC 34.1 (31.0-37.0) g/dL RDW 14.6 (11.5-15.5) % Plt Count 152 (150-450) k/uL MPV 9.3 Neutrophils % 83 % Lymphocytes % 9 % Monocytes % 5 % Eosinophils % 1 % Basophils % 1 % Neutrophils # 5.7 (1.3-7.7) k/uL Lymphocytes # 0.6 L (1.0-4.8) k/uL Monocytes # 0.4 (0-1.0) k/uL Eosinophils # 0.0 (0-0.7) k/uL Basophils # 0.0 (0-0.2) k/uL PT 11.2 (9.0-12.0) sec INR 1.0 (<1.2) Sodium (137-145) mmol/L Potassium (3.5-5.1) mmol/L Chloride (98-107) mmol/L Carbon Dioxide (22-30) mmol/L Anion Gap mmol/L BUN (9-20) mg/dL Creatinine (0.66-1.25) mg/dL Est GFR (CKD-EPI)AfAm (>60 ml/min/1.73 sqM) Est GFR (CKD-EPI)NonAf (>60 ml/min/1.73 sqM) Glucose (74-99) mg/dL Calcium (8.4-10.2) mg/dL Total Bilirubin (0.2-1.3) mg/dL AST (17-59) U/L ALT (4-49) U/L Alkaline Phosphatase (38-126) U/L Troponin I (0.000-0.034) ng/mL NT-Pro-B Natriuret Pep pg/mL Total Protein (6.3-8.2) g/dL Albumin (3.5-5.0) g/dL Urine Color Yellow Urine Appearance Clear (Clear) Urine pH 6.5 (5.0-8.0) Ur Specific [place] 1.011 (1.001-1.035) Urine Protein Negative (Negative) Urine Glucose (UA) Negative (Negative) Urine Ketones Negative (Negative) Urine Blood Negative (Negative) Urine Nitrite Negative (Negative) Urine Bilirubin Negative (Negative) Urine Urobilinogen <2.0 (<2.0) mg/dL Ur Leukocyte Esterase Negative (Negative) 04/23/22 04/23/22 04/23/22 Range/Units 15:58 15:58 15:58 WBC (3.8-10.6) k/uL RBC (4.30-5.90) m/uL Hgb (13.0-17.5) gm/dL Hct (39.0-53.0) % MCV (80.0-100.0) fL MCH (25.0-35.0) pg MCHC (31.0-37.0) g/dL RDW (11.5-15.5) % Plt Count (150-450) k/uL MPV Neutrophils % % Lymphocytes % % Monocytes % % Eosinophils % % Basophils % % Neutrophils # (1.3-7.7) k/uL Lymphocytes # (1.0-4.8) k/uL Monocytes # (0-1.0) k/uL Eosinophils # (0-0.7) k/uL Basophils # (0-0.2) k/uL PT (9.0-12.0) sec INR (<1.2) Sodium 135 L (137-145) mmol/L Potassium 3.3 L (3.5-5.1) mmol/L Chloride 100 (98-107) mmol/L Carbon Dioxide 22 (22-30) mmol/L Anion Gap 13 mmol/L BUN 10 (9-20) mg/dL Creatinine 0.54 L (0.66-1.25) mg/dL Est GFR (CKD-EPI)AfAm >90 (>60 ml/min/1.73 sqM) Est GFR (CKD-EPI)NonAf >90 (>60 ml/min/1.73 sqM) Glucose 124 H (74-99) mg/dL Calcium 8.6 (8.4-10.2) mg/dL Total Bilirubin 0.6 (0.2-1.3) mg/dL AST 34 (17-59) U/L ALT 54 H (4-49) U/L Alkaline Phosphatase 104 (38-126) U/L Troponin I <0.012 (0.000-0.034) ng/mL NT-Pro-B Natriuret Pep 797 pg/mL Total Protein 7.1 (6.3-8.2) g/dL Albumin 4.5 (3.5-5.0) g/dL Urine Color Urine Appearance (Clear) Urine pH (5.0-8.0) Ur Specific [place] (1.001-1.035) Urine Protein (Negative) Urine Glucose (UA) (Negative) Urine Ketones (Negative) Urine Blood (Negative) Urine Nitrite (Negative) Urine Bilirubin (Negative) Urine Urobilinogen (<2.0) mg/dL Ur Leukocyte Esterase (Negative) Disposition Clinical Impression: Dizziness Disposition: HOME SELF-CARE Condition: Good Instructions (If sedation given, give patient instructions): Dizziness (ED) Additional Instructions: Follow-up with PCP and cardiology. Report back to ER with any new or worsening symptoms. Is patient prescribed a controlled substance at d/c from ED?: No Referrals: Haile Bauer DO [Primary Care Provider] - 1-2 days Time of Disposition: 20:14
[2022-04-23] MEDS ORDERED: ONDANSETRON 4 MG/2 ML VIAL IVP STA (17:52)
[2022-04-23] MEDS ORDERED: MECLIZINE 12.5 MG TAB PO STA (17:54)
--- NOTE | 2022-04-23 17:58 | XR ---
EXAMINATION TYPE: XR chest 2V DATE OF EXAM: 04/23/2022 5:32 PM COMPARISON: Chest radiographs from TECHNIQUE: XR chest 2V Frontal and lateral views of the chest. CLINICAL INDICATION:Male, 61 years old with history of chest pain, near syncope; FINDINGS: Lungs/Pleura: Low lung volumes are present. There is no evidence of pleural effusion, focal consolida tion, or pneumothorax. Pulmonary vascularity: Pulmonary vascular congestion. Heart/mediastinum: Cardiomediastinal silhouette is enlarged and stable. Musculoskeletal: No acute osseous pathology. Midline sternotomy wires are noted. IMPRESSION: Low lung volumes with haziness of lungs which could represent pulmonary vascular congestion in the se tting of congestive heart failure versus atelectasis. Correlate with BNP for congestive heart failure .
--- NOTE | 2022-04-23 18:16 | CT ---
EXAMINATION TYPE: CT brain wo con CT DLP: 1143.4 mGycm, Automated exposure control for dose reduction was used. DATE OF EXAM: 04/23/2022 5:49 PM COMPARISON: 04/22/2022. CLINICAL INDICATION:Male, 61 years old with history of dizziness, Dizziness, vomiting TECHNIQUE: Brain: Axial CT images of the brain were obtained with coronal and sagittal reformats created and rev iewed. Contrast used: None. Oral contrast used: None. FINDINGS: Brain: Extra-axial spaces: No abnormal extra-axial fluid collections. Ventricular system: Within normal limits Cerebral parenchyma: No acute intraparenchymal hemorrhage or mass effect. The lynch-white junction is well differentiated. Cerebellum: Unremarkable. Mass effect: No evidence of midline shift. Intracranial vasculature: Atherosclerotic calcifications of the intracranial vessels. Dolichoectasia of the basilar artery. Soft tissues: Normal. Calvarium/osseous structures: No depressed skull fracture. Paranasal sinuses and mastoid air cells: Mild scattered paranasal sinus disease. Visualized orbits: Orbital contents are intact. IMPRESSION: No acute intracranial process.
[2022-04-23] MEDS ORDERED: lisinopriL 20 MG TAB PO STA (18:51)
[2022-04-23] MEDS ORDERED: hydrALAZINE HCL 25 MG TAB PO STA (18:52)
[2022-04-23 18:59] VITALS: RESP 15
[2022-04-23] MEDS ORDERED: POTASSIUM CHLORIDE ER 20 MEQ TAB.ER PO STA (19:26)
[2022-04-23 20:26] VITALS: BP 159/67; PULSE 71
== END 2022-04-23 20:26 | disposition home or self-care (01) ==
LOC: EC 15:04
DX: R42 Dizziness and giddiness (principal); I48.91 Unspecified atrial fibrillation; I10 Essential (primary) hypertension; F41.9 Anxiety disorder, unspecified; Z79.899 Other long term (current) drug therapy
CPT/HCPCS: 36415; 83880; 80053; 84484; 85025; 85610; 81003; 71046; 70450; 99284; 96374; 96361; J2405; 93005

== ENCOUNTER 2022-04-28 09:51 | Emergency (ER) | payer MEDICARE ==
[2022-04-28] MEDS ORDERED: METOCLOPRAMIDE 5 MG/ML 2 ML VIAL IVP STA (10:15)
[2022-04-28] MEDS ORDERED: MECLIZINE 25 MG TAB PO STA (10:15)
[2022-04-28 10:34] LABS: Basophils % (A) 0 %; Eosinophils # (A) 0.1 k/uL (0-0.7); Eosinophils % (A) 1 %; HCT 41.9 % (39.0-53.0); HGB 14.1 gm/dL (13.0-17.5); Lymphocytes # (A) 0.7 k/uL (1.0-4.8); Lymphocytes % (A) 18 %; MCH 27.6 pg (25.0-35.0); MCHC 33.6 g/dL (31.0-37.0); Mean Platelet Volume 8.7; Monocytes # (A) 0.2 k/uL (0-1.0); Monocytes % (A) 6 %; Neutrophils % (A) 74 %; Platelet Count 161 k/uL (150-450); RBC 5.11 m/uL (4.30-5.90); RDW 14.4 % (11.5-15.5); WBC 4.1 k/uL (3.8-10.6)
--- NOTE | 2022-04-28 10:41 | ED ---
General Adult HPI - General Chief complaint: Weakness Stated complaint: Dizziness Time Seen by Provider: 04/28/22 10:10 Source: patient, family, EMS, RN notes reviewed, old records reviewed Mode of arrival: EMS Limitations: no limitations - History of Present Illness Initial comments: This a 61-year-old male who presents emergency Department with a past history of aortic root replacement. Patient comes in today because of dizziness which makes him nauseated and somewhat sweaty at times. Patient states she was here the other day for a total critical. Family is with the patient because he is somewhat limited in his ability to explain. Patient states that he was at work today and he became very dizzy like he was in a fall over. Patient denies thinking he was going to pass out. Patient states it made her very nauseated. Patient states he sits still it is improved. Patient denies chest pain palpitations difficulty breathing shortness of breath per patient denies any headache patient denies numbness weakness. Patient denies any abdominal pain. Patient has any back pain. - Related Data Home Medications Medication Instructions Recorded Confirmed Atorvastatin [Lipitor] 20 mg PO DAILY 12/22/18 04/28/22 Multivitamins, Thera [Multivitamin 1 tab PO DAILY 12/22/18 04/28/22 (formulary)] PARoxetine HCL [Paxil] 40 mg PO DAILY 12/22/18 04/28/22 Potassium Chloride [Potassium 10 meq PO DAILY 12/22/18 04/28/22 Chloride ER] Terazosin [Hytrin] 5 mg PO HS 12/22/18 04/28/22 Triamterene-Hctz 37.5-25Mg 1 cap PO DAILY 12/22/18 04/28/22 [Dyazide 37.5-25 Capsule] Verapamil HCl [Verapamil ER] 240 mg PO DAILY 12/22/18 04/28/22 lisinopriL 20 mg PO BID 12/22/18 04/28/22 Ferrous Sulfate [Iron (65 MG 325 mg PO DAILY 05/15/21 04/28/22 Elemental)] Cholecalciferol [Vitamin D3 (10 10 mcg PO DAILY 03/18/22 04/28/22 Mcg = 400 Iu)] Potassium Chloride ER [K-Dur 10] 20 meq PO HS 03/18/22 04/28/22 Rivaroxaban [Xarelto] 20 mg PO W/SUPPER 03/18/22 04/28/22 hydrALAZINE HCL [Apresoline] 25 mg PO BID 04/23/22 04/28/22 Previous Rx's Medication Instructions Recorded Meclizine [Antivert] 25 mg PO TID #20 tab 04/28/22 Potassium Chloride ER [K-Dur 20] 20 meq PO DAILY #7 tab 04/28/22 Allergies Allergy/AdvReac Type Severity Reaction Status Date / Time No Known Allergies Allergy Verified 04/28/22 11:15 Review of Systems ROS Statement: Those systems with pertinent positive or pertinent negative responses have been documented in the HPI. ROS Other: All systems not noted in ROS Statement are negative. Past Medical History Past Medical History: Atrial Fibrillation, Hypertension, Syncope Additional Past Medical History / Comment(s): See Dr Rojas's H&P. Marfans Syndrome. Mentality of an 9 yr old. History of Any Multi-Drug Resistant Organisms: None Reported Past Surgical History: Coronary Bypass/CABG, Orthopedic Surgery Additional Past Surgical History / Comment(s): "Had Aorta rebuilt in 2014", knee arthroscopy, right carpal tunnel release. Past Anesthesia/Blood Transfusion Reactions: No Reported Reaction Past Psychological History: Anxiety Smoking Status: Never smoker Past Alcohol Use History: None Reported Past Drug Use History: None Reported - Past Family History Mother Family Medical History: No Reported History General Exam - General Exam Comments Initial Comments: GENERAL: Patient is well-developed and well-nourished. Patient is nontoxic and well- hydrated and is in mild distress. ENT: Neck is soft and supple. No significant lymphadenopathy is noted. Oropharynx is clear. Moist mucous membranes. Neck has full range of motion without eliciting any pain. EYES: The sclera were anicteric and conjunctiva were pink and moist. Patient has slight nystagmus looking either left or right. Extraocular movements were intact and pupils were equal round and reactive to light. Eyelids were unremarkable. PULMONARY: Unlabored respirations. Good breath sounds bilaterally. No audible rales rhonchi or wheezing was noted. CARDIOVASCULAR: Patient's heart rate is irregularly irregular. ABDOMEN: Soft and nontender with normal bowel sounds. SKIN: Skin is clear with no lesions or rashes and otherwise unremarkable. NEUROLOGIC: Patient is alert and oriented x3. Cranial nerves II through XII are grossly intact. Motor and sensory are also intact. Normal speech, volume and content. Symmetrical smile. Finger nose testing bilaterally was normal MUSCULOSKELETAL: Normal extremities with adequate strength and full range of motion. No lower extremity swelling or edema. No calf tenderness. LYMPHATICS: No significant lymphadenopathy is noted PSYCHIATRIC: Normal psychiatric evaluation. Limitations: no limitations Course Vital Signs 04/28/22 04/28/22 04/28/22 10:10 10:31 10:45 Temperature 98.5 F Pulse Rate 88 75 76 Respiratory 18 15 16 Rate Blood Pressure 148/130 153/103 148/99 O2 Sat by Pulse 96 100 100 Oximetry 04/28/22 04/28/22 04/28/22 11:00 11:15 11:30 Temperature Pulse Rate 73 70 72 Respiratory 16 15 14 Rate Blood Pressure 128/82 147/98 139/103 O2 Sat by Pulse 100 99 100 Oximetry 04/28/22 04/28/22 04/28/22 11:45 12:00 12:15 Temperature Pulse Rate 67 78 62 Respiratory 20 18 16 Rate Blood Pressure 145/98 130/78 135/96 O2 Sat by Pulse 98 98 100 Oximetry Medical Decision Making - Medical Decision Making EKG shows atrial fibrillation with occasional PVC at a rate of 76 bpm QRS is 125 Q-T intervals 416 QTC is 446. EKG shows no ST segment elevation or depression. Patient does have inferior Q waves. Patient received potassium in the emergency department. Patient was given Antivert Reglan and 2 of Valium. Patient was reevaluated at about 1245 he got up and ambulated felt considerably better. Patient states he no longer feels dizzy at all. Patient also has potassium replaced in the emergency department and will be given a prescription for potassium at home. - Lab Data Result diagrams: 04/28/22 10:18 04/28/22 10:18 Lab Results 04/28/22 04/28/22 04/28/22 Range/Units 10:18 10:18 10:18 WBC 4.1 (3.8-10.6) k/uL RBC 5.11 (4.30-5.90) m/uL Hgb 14.1 (13.0-17.5) gm/dL Hct 41.9 (39.0-53.0) % MCV 82.0 (80.0-100.0) fL MCH 27.6 (25.0-35.0) pg MCHC 33.6 (31.0-37.0) g/dL RDW 14.4 (11.5-15.5) % Plt Count 161 (150-450) k/uL MPV 8.7 Neutrophils % 74 % Lymphocytes % 18 % Monocytes % 6 % Eosinophils % 1 % Basophils % 0 % Neutrophils # 3.0 (1.3-7.7) k/uL Lymphocytes # 0.7 L (1.0-4.8) k/uL Monocytes # 0.2 (0-1.0) k/uL Eosinophils # 0.1 (0-0.7) k/uL Basophils # 0.0 (0-0.2) k/uL Sodium 132 L (137-145) mmol/L Potassium 3.0 L (3.5-5.1) mmol/L Chloride 99 (98-107) mmol/L Carbon Dioxide 22 (22-30) mmol/L Anion Gap 11 mmol/L BUN 9 (9-20) mg/dL Creatinine 0.58 L (0.66-1.25) mg/dL Est GFR (CKD-EPI)AfAm >90 (>60 ml/min/1.73 sqM) Est GFR (CKD-EPI)NonAf >90 (>60 ml/min/1.73 sqM) Glucose 109 H (74-99) mg/dL Calcium 8.3 L (8.4-10.2) mg/dL Magnesium 1.9 (1.6-2.3) mg/dL Total Bilirubin 0.7 (0.2-1.3) mg/dL AST 32 (17-59) U/L ALT 51 H (4-49) U/L Alkaline Phosphatase 89 (38-126) U/L Troponin I <0.012 (0.000-0.034) ng/mL Total Protein 6.8 (6.3-8.2) g/dL Albumin 4.2 (3.5-5.0) g/dL Disposition Clinical Impression: Vertigo, Hypokalemia Disposition: HOME SELF-CARE Condition: Good Instructions (If sedation given, give patient instructions): Vertigo (ED), Hypokalemia (ED) Prescriptions: Meclizine [Antivert] 25 mg PO TID #20 tab Potassium Chloride ER [K-Dur 20] 20 meq PO DAILY #7 tab Is patient prescribed a controlled substance at d/c from ED?: No Referrals: Haile Bauer DO [Primary Care Provider] - 1-2 days Time of Disposition: 13:00
[2022-04-28 10:45] LABS: ALT 51 U/L (4-49); AST 32 U/L (17-59); African American GFR (CKD) >90 (>60 ml/min/1.73 sqM); Albumin 4.2 g/dL (3.5-5.0); Alkaline Phosphatase 89 U/L (38-126); Anion Gap 11 mmol/L; Blood Urea Nitrogen 9 mg/dL (9-20); Calcium 8.3 mg/dL (8.4-10.2); Carbon Dioxide 22 mmol/L (22-30); Chloride 99 mmol/L (98-107); Glucose 109 mg/dL (74-99); Magnesium 1.9 mg/dL (1.6-2.3); Non-African American GFR(CKD) >90 (>60 ml/min/1.73 sqM); Sodium 132 mmol/L (137-145); Total Bilirubin 0.7 mg/dL (0.2-1.3); Total Protein 6.8 g/dL (6.3-8.2)
[2022-04-28] MEDS ORDERED: POTASSIUM CHLORIDE ER 20 MEQ TAB.ER PO STA (11:14)
[2022-04-28] MEDS ORDERED: POTASSIUM CHLORIDE 10 MEQ in WATER FOR INJECTION 1 100ML.BAG IVPB STA (11:14)
[2022-04-28] MEDS ORDERED: SODIUM CHLORIDE 0.9% 500 ML 500 ML IV ONE (11:35)
[2022-04-28] MEDS ORDERED: SCOPOLAMINE 1 MG/72 HR PATCH TRANSDERM STA (12:58)
[2022-04-28 13:14] VITALS: BP 167/98; PULSE 64; RESP 17; TEMP 98.4
== END 2022-04-28 13:26 | disposition home or self-care (01) ==
LOC: EC 09:51
DX: R42 Dizziness and giddiness (principal); E87.6 Hypokalemia; I48.91 Unspecified atrial fibrillation; I10 Essential (primary) hypertension; Z79.811 Long term (current) use of aromatase inhibitors
CPT/HCPCS: 36415; 93005; 80053; 83735; 84484; 85025; 99285; 96365; 96375 ×3; 96361; J2765; J3360; J3480

== ENCOUNTER 2022-10-16 07:40 | Day surgery (SDC) | payer MEDICARE ==
[~2022-10-16 07:40] MED LIST changes: -LACTATED RINGERS 1,000 ML IV SCH
[2022-10-16] MEDS ORDERED: SODIUM CHLORIDE 0.9% 1,000 ML IV ONE (07:45)
[2022-10-16 08:06] VITALS: BMI 31.1
[2022-10-16 08:35] LABS: ALT 27 U/L (4-49); AST 23 U/L (17-59); African American GFR (CKD) >90 (>60 ml/min/1.73 sqM); Albumin 4.4 g/dL (3.5-5.0); Alkaline Phosphatase 92 U/L (38-126); Anion Gap 8 mmol/L; Blood Urea Nitrogen 10 mg/dL (9-20); Calcium 8.6 mg/dL (8.4-10.2); Carbon Dioxide 24 mmol/L (22-30); Chloride 107 mmol/L (98-107); Glucose 100 mg/dL (74-99); Non-African American GFR(CKD) >90 (>60 ml/min/1.73 sqM); Potassium 3.7 mmol/L (3.5-5.1); Sodium 139 mmol/L (137-145); Total Bilirubin 1.4 mg/dL (0.2-1.3); Total Protein 7.5 g/dL (6.3-8.2)
[2022-10-16] MEDS ORDERED: PHENYLEPHRINE-0.9% NACL SYG 1,000 MCG/10 ML SYRINGE ONE (09:25)
[2022-10-16] MEDS ORDERED: LIDOCAINE 2% INJ 20 MG/ML (2 ML VIAL) ONE (09:25)
[2022-10-16] MEDS ORDERED: PROPOFOL 10 MG/ML 20 ML VIAL IV ONE (09:25)
[2022-10-16] MEDS ORDERED: ePHEDrine 50 MG/ML 1 ML VIAL ONE (09:25)
[2022-10-16] MEDS ORDERED: FUROSEMIDE 10 MG/ML 2 ML VIAL ONE (09:25)
[2022-10-16] MEDS ORDERED: fentaNYL (PF) 50 MCG/ML 2 ML AMP ONE (09:25)
[2022-10-16] MEDS ORDERED: HEPARIN SODIUM,PORCINE 10,000 UNIT/ML 1 ML VIAL ONE (09:25)
[2022-10-16] MEDS ORDERED: SUCCINYLCHOLINE CHLORIDE 200 MG/10 ML VIAL IV ONE (09:25)
[2022-10-16] MEDS ORDERED: HEPARIN SOD,PORK IN 0.45% NACL 25,000 UNIT in 0.45% NACL 1 250ML.BAG IV ONE (10:30)
[2022-10-16] MEDS ORDERED: NOREPINEPHRINE 4 MG in SODIUM CHLORIDE 0.9% 250 ML IV SCH (11:00)
[2022-10-16] MEDS ORDERED: HEPARIN SODIUM (1,000 UNIT/ML) 1,000 UNIT in SODIUM CHLORIDE 0.9% 1,000 ML IRRIGATION ONE (13:00)
[2022-10-16] MEDS ORDERED: IOPAMIDOL-370 100ML BTL INJ ONE (13:17)
[2022-10-16] MEDS ORDERED: LACTATED RINGERS 1,000 ML IV ONE (13:19)
--- NOTE | 2022-10-16 15:11 | P.HPCAR ---
History of Present Illness This is Dr. Everett dictating an H/P on this patient The patient was interviewed and examined IMPRESSION / ASSESSMENT: Persistent atrial fibrillation, failed antiarrhythmic drug therapy and electrical cardioversion Symptomatic with shortness of breath on exertion Significant biatrial enlargement Status post aortic root repair in 2004 with 2+ aortic regurgitation now PLAN: Patient is stable from a cardiovascular standpoint this morning. We will proceed with an A. fib ablation He will continue xarelto HPI Patient denies any chest discomfort, undue shortness of breath He complains of tiredness and fatigue No syncope No cough expectoration or any pulmonary symptoms No fever chills ROS: No fever chills or rigors, no cough, phlegm or expectoration, no nausea, vomiting or diarrhea, no hematuria, dysuria, no musculoskeletal complaints, no strokes or seizures, no skin lesions. EXAMINATION: Temperature 90.9F pulse rate 102 beats a minute at rest, blood pressure 162/85 mmHg Breath sounds are reduced bilaterally but no rhonchi no crackles Heart sounds S1 and S2 are irregular and tachycardic Abdomen is soft Extended is warm No JVD REVIEW OF LABS, ECG & MEDICAL DATA Sodium 139, potassium 3.7 BUN 10 and creatinine 0.62 Normal AST and ALT Normal TSH 1.3 Physical Exam Vitals: Vital Signs Temp Pulse Resp BP Pulse Ox 10/16/22 08:15 99.1 F 102 H 16 162/85 99 Intake and Output 10/16/22 10/16/22 10/16/22 06:59 14:59 22:59 Intake Total 2133 Balance 2133 Intake: IV 3 Other: Weight 113.2 kg Past Medical History Past Medical History: Atrial Fibrillation, Hypertension, Syncope Additional Past Medical History / Comment(s): See Dr Rojas's H&P. Marfans Syndrome. Mentality of an [address] Everett's h & p History of Any Multi-Drug Resistant Organisms: None Reported Past Surgical History: Coronary Bypass/CABG, Orthopedic Surgery Additional Past Surgical History / Comment(s): "Had Aorta rebuilt in 2004", knee arthroscopy, right carpal tunnel release. Past Anesthesia/Blood Transfusion Reactions: No Reported Reaction Smoking Status: Never smoker - Past Family History Mother Family Medical History: No Reported History Physical Examination Vital Signs Temp Pulse Resp BP Pulse Ox 10/16/22 08:15 99.1 F 102 H 16 162/85 99 Intake and Output 10/16/22 10/16/22 10/16/22 06:59 14:59 22:59 Intake Total 2132 Balance 2132 Intake: IV 2132 Other: Weight 113.2 kg Results 10/16/22 07:45 Cardiac Enzymes 10/16/22 Range/Units 07:45 AST 23 (17-59) U/L Comprehensive Metabolic Panel 10/16/22 Range/Units 07:45 Sodium 139 (137-145) mmol/L Potassium 3.7 (3.5-5.1) mmol/L Chloride 107 (98-107) mmol/L Carbon Dioxide 24 (22-30) mmol/L BUN 10 (9-20) mg/dL Creatinine 0.62 L (0.66-1.25) mg/dL Glucose 100 H (74-99) mg/dL Calcium 8.6 (8.4-10.2) mg/dL AST 23 (17-59) U/L ALT 27 (4-49) U/L Alkaline Phosphatase 92 (38-126) U/L Total Protein 7.5 (6.3-8.2) g/dL Albumin 4.4 (3.5-5.0) g/dL Current Medications Generic Name Dose Route Start Last Admin Trade Name Freq PRN Reason Stop Dose Admin Sodium Chloride 1,000 mls @ 50 mls/hr 10/16/22 05:36 Saline 0.9% IV 11/15/22 05:37 .Q20H VIRAJ Lactated Ringer's 1,000 mls @ 20 mls/hr 10/16/22 05:36 Lactated Ringers IV 11/15/22 05:37 .Q24H VIRAJ Norepinephrine Bitartrate 4 mg 254 mls @ 12.939 mls/hr 10/16/22 11:00 / Sodium Chloride IV 11/15/22 11:01 .[id number] VIRAJ Protocol 0.03 MCG/KG/MIN Intake and Output 10/16/22 10/16/22 10/16/22 06:59 14:59 22:59 Intake Total 2132 Balance 2132 Intake: IV 2132 Other: Weight 113.2 kg Patient Weight 10/17/22 06:59 Weight 113.2 kg 10/16/22 07:45
--- NOTE | 2022-10-16 15:29 | P.EPPROC ---
- EP Procedure Note Electrophysiology Procedure Note: PROCEDURE A. fib ablation with PVI, linear ablation in the left atrial roof and focal ablation anterior inferior LA wall DIAGNOSIS Persistent Atrial fibrillation, symptomatic, refractory to therapy RESULT No left atrial appendage mass seen on intracardiac echo, significantly enlarged left atrium Successful A. fib ablation/pulmonary vein isolation of all veins using cryo- ablation Complete entrance block in all 4 veins confirmed Linear ablation left atrial roof Ablation of the posterior left atrial septum Electrical cardioversion following this. No atrial fibrillation thereafter Induction of focal atrial tachycardias. Subsequently - Focal ablation anterior LA wall close to the mitral annulus - Focal ablation anteroseptal him a inferior LA, below the transseptal puncture site No evidence for phrenic nerve injury Esophageal deflection YES Electrical cardioversion with a synchronized shock across the chest YES. PROCEDURE DETAILS Written informed consent prior to procedure. Patient brought to the EP lab. General anesthesia given. Heparin administered. A city maintained above 300 seconds Both groins prepped and draped per protocol and venous sheaths placed. Esophagus intubated, circa catheter for temperature monitoring an endoscope for possible esophageal deflection. Phrenic nerve monitoring performed. Esophageal temperature monitoring performed. Esophageal deflection performed if circa catheter overlapping with the balloon or circa temperature less than 27.5C Intracardiac echocardiography performed. Pericardium evaluated. Left atrial appendage evaluated. Left atrium evaluated along with pulmonary veins Transseptal catheterization performed under fluoroscopic guidance and intracardiac echo guidance Cryoablation sheath exchanged, balloon catheter along with achieve catheter placed in the left atrium. Patient's blood pressure was low and therefore a first electrical cardioversion was performed prior to starting A. fib ablation. However there was immediate recurrence of atrial fibrillation Pulmonary veins isolated in the following sequence: Left superior pulmonary vein followed by left inferior pulmonary vein, followed by right inferior pulmonary vein and lastly right superior pulmonary vein. Phrenic nerve stimulation along with capture thresholds within the SVC and right superior pulmonary vein to identify the phrenic nerve proximity to the cryo- balloon. Pulmonary veins isolated and confirmed with entrance and exit block. Phrenic nerve integrity confirmed at the end of the procedure Ablation of the left atrial roof performed with sequential lesions from the left superior to the right superior pulmonary veins. Ablation of the electrograms confirmed Ablation of the left atrial septum performed with cannulation of the superior branch of the right inferior or the inferior branch of the right superior vein to achieve ablation of the posterior septum of the left atrium. Ablation of electrograms confirmed Electrical cardioversion performed after PVI and ablation of the roof and septum , and the patient remained in sinus rhythm thereafter Induction of two focal atrial tachycardias from the anterior left atrial wall 3-D electro-anatomic mapping performed and both atrial tachycardias ablated with RF with good contact force and power Diagnostic catheters for the high right atrium, His bundle, coronary sinus placed. LA and RA pressures recorded RA pressure: 21/9/15 LA pressure: 25/8/16 Diagnostic EP study with coronary sinus pacing and recording Baseline measurements: Post cardioversion line AH 52, HV 44, VT 189 ms, QT interval 472 ms. QRS 110 ms Burst stimulation was performed at the end of the procedure . No further atrial fibrillation induced with burst stimulation Venous sheaths were removed and hemostasis assured with a closure device. Patient extubated and transferred to recovery Increase procedural time This is a very long procedure primarily on account of an extremely enlarged left atrium and very large pulmonary veins. Each pulmonary vein was segmentally isolated by cannulating and ablating each main tributary Each pulmonary vein required a minimum of 2 separate cryoablation's for complete antral encirclement, primarily on account of the large caliber of these pulmonary veins During ablation multiple attempts had to be made to move the esophagus a safe distance of the from the pulmonary vein draining cryoablation, to avoid excessive thermal cooling of the esophagus This took extra time and effort to keep the esophagus a safe distance away from the cryoablation balloon. A very long left atrial roof line had to be made on account of the size of the left atrium Following this voltage mapping was performed and complete crisis of the pulmonary veins was noted The left atrial roof line was also quiescent on voltage mapping PROCEDURES PERFORMED Diagnostic EP study CS pacing and recording Left and right transseptal catheterization Catheter the mapping of the tachycardia Intracardiac echocardiography Pulmonary vein isolation with transseptal and comprehensive EPS, [id number] Left atrial roof line, +[id number] Linear ablation, left atrium, +[id number] Ablation of discrete arrhythmia focus, +[id number] Ablation of second discrete arrhythmia focus, +[phone] Electrical cardioversion with a synchronized shock across the chest [id number]
[2022-10-16] MEDS ORDERED: ACETAMINOPHEN TAB 325 MG TAB PO PRN (16:21)
[2022-10-16] MEDS ORDERED: ACETAMINOPHEN IV (For NPO) 1,000 MG in EMPTY BAG 1 BAG IVPB ONE (17:00)
[2022-10-16] MEDS ORDERED: RIVAROXABAN 20 MG TAB PO SCH (17:30)
[2022-10-16] MEDS: LACTATED RINGERS 1,000 ML IV SCH (18:01)
[2022-10-16] MEDS ORDERED: VERAPAMIL SR 240 MG TABLET.ER PO SCH (19:30)
[2022-10-16] MEDS: lisinopriL 20 MG TAB PO SCH (20:35)
[2022-10-16] MEDS: hydrALAZINE HCL 25 MG TAB PO SCH (20:35)
[2022-10-16] MEDS ORDERED: DOXAZOSIN 4 MG TAB PO SCH (21:00)
[2022-10-17] MEDS: LACTATED RINGERS 1,000 ML IV SCH (05:38)
[2022-10-17 07:08] VITALS: BP 155/85; PULSE 75; RESP 18; TEMP 99
[2022-10-17] MEDS ORDERED: DRONEDARONE 400 MG TAB PO SCH (08:30)
[2022-10-17] MEDS: hydrALAZINE HCL 25 MG TAB PO SCH (08:36)
[2022-10-17] MEDS: lisinopriL 20 MG TAB PO SCH (08:36)
[2022-10-17] MEDS ORDERED: ATORVASTATIN 20 MG TAB PO SCH (09:00)
[2022-10-17] MEDS ORDERED: VERAPAMIL SR 120 MG TABLET.ER PO SCH (09:00)
[2022-10-17] MEDS ORDERED: VERAPAMIL SR 240 MG TABLET.ER PO SCH (09:00)
[2022-10-17] MEDS ORDERED: TRIAMTERENE-HCTZ 37.5-25MG 1 EACH CAP PO SCH (09:00)
[2022-10-17 09:04] LABS: African American GFR (CKD) 118.9 (60.0-200.0); BUN/Creat Ratio 19.57 Ratio (12.00-20.00); Blood Urea Nitrogen 13.7 mg/dL (9.0-27.0); Calcium 8.4 mg/dL (8.7-10.3); Non-African American GFR(CKD) 102.6 (60.0-200.0)
--- NOTE | 2022-10-17 10:20 | P.PRLE ---
RE: Zac Hebert Dear Dr. Juancarlos Frank underwent a diagnostic EP study and ablation for atrial fibrillation. He has an extremely enlarged left atrium with persistent atrial fibrillation. He has failed electrical cardioversion and antiarrhythmic drug therapy previously Yesterday, He underwent successful pulmonary vein isolation, ablation of the left atrial septum and the left atrial roof Following that he maintains sinus rhythm with electrical cardioversion but had inducible atrial tachycardia S Two focal atrial tachycardias along the anterior wall of the left atrium were ablated and he maintains sinus rhythm now It is quite likely that he may have more atrial tachycardias in the future and focal ablation may be needed in the future At this time I would recommend continuing anticoagulation and restarting Multaq 400 mg twice daily and reducing the dose of verapamil 220 mg by mouth daily He will continue to follow with you and Dr. Rojas as before Thank you for entrusting me with the care of the patient Warm regards Sincerely Elvis Everett
--- NOTE | 2022-10-17 10:55 | P.DS ---
Providers Attending physician: Elvis Everett Primary care physician: [facility] Course: This is a 61-year-old male who underwent A. fib ablation with PVI, linear ablation of the left atrial roof and local ablation anterior inferior LA wall. Patient examined this morning at the bedside. Patient denies chest pain or pressure. Denies shortness of breath. Vital signs are stable. The patient was deemed stable for discharge home today by Dr. Everett. Please see EMR for [facility] course details Discharge diagnosis Persistent atrial fibrillation, S/P A. fib ablation with PVI, linear ablation in the left atrial roof and focal ablation anterior inferior LA wall Nurse practitioner note has been reviewed by physician. Signing provider agrees with the documented findings, assessment, and plan of care. Plan - Discharge Summary Discharge Rx Participant: Yes New Discharge Prescriptions: New Verapamil HCl [Verapamil Sr] 120 mg PO DAILY #90 cap Dronedarone [Multaq] 400 mg PO AC-BID #60 tab Continue Terazosin [Hytrin] 5 mg PO HS Atorvastatin [Lipitor] 20 mg PO DAILY Triamterene-Hctz 37.5-25Mg [Dyazide 37.5-25 Capsule] 1 cap PO DAILY lisinopriL 20 mg PO BID PARoxetine HCL [Paxil] 40 mg PO DAILY Potassium Chloride [Potassium Chloride ER] 10 meq PO DAILY Multivitamins, Thera [Multivitamin (formulary)] 1 tab PO DAILY Cholecalciferol [Vitamin D3 (10 Mcg = 400 Iu)] 10 mcg PO DAILY hydrALAZINE HCL [Apresoline] 25 mg PO BID Ferrous Sulfate [Iron (65 MG Elemental)] 325 mg PO DAILY Potassium Chloride ER [K-Dur 10] 20 meq PO HS Rivaroxaban [Xarelto] 20 mg PO W/SUPPER Discontinued Verapamil HCl [Verapamil ER] 240 mg PO DAILY Discharge Medication List Atorvastatin [Lipitor] 20 mg PO DAILY 12/22/18 [History] Multivitamins, Thera [Multivitamin (formulary)] 1 tab PO DAILY 12/22/18 [History] PARoxetine HCL [Paxil] 40 mg PO DAILY 12/22/18 [History] Potassium Chloride [Potassium Chloride ER] 10 meq PO DAILY 12/22/18 [History] Terazosin [Hytrin] 5 mg PO HS 12/22/18 [History] Triamterene-Hctz 37.5-25Mg [Dyazide 37.5-25 Capsule] 1 cap PO DAILY 12/22/18 [History] lisinopriL 20 mg PO BID 12/22/18 [History] Ferrous Sulfate [Iron (65 MG Elemental)] 325 mg PO DAILY 05/15/21 [History] Cholecalciferol [Vitamin D3 (10 Mcg = 400 Iu)] 10 mcg PO DAILY 03/18/22 [History] Potassium Chloride ER [K-Dur 10] 20 meq PO HS 03/18/22 [History] Rivaroxaban [Xarelto] 20 mg PO W/SUPPER 03/18/22 [History] hydrALAZINE HCL [Apresoline] 25 mg PO BID 04/23/22 [History] Dronedarone [Multaq] 400 mg PO AC-BID #60 tab 10/17/22 [Rx] Verapamil HCl [Verapamil Sr] 120 mg PO DAILY #90 cap 10/17/22 [Rx] Follow up Appointment(s)/Referral(s): Aline Rojas MD [STAFF PHYSICIAN] - 1 Week
== END 2022-10-17 12:53 | disposition home or self-care (01) ==
LOC: CATHEP 07:40 → 6NMEDSUR 14:46 → CATHEP 10-17 12:53
PROVIDERS: ATTEND Internal Medicine Clinical Cardiac Electrophysiology
DX: I48.19 Other persistent atrial fibrillation (principal); I47.1 Supraventricular tachycardia; I35.1 Nonrheumatic aortic (valve) insufficiency; Z95.828 Presence of other vascular implants and grafts; Z79.01 Long term (current) use of anticoagulants; I10 Essential (primary) hypertension; Q87.40 Marfan syndrome, unspecified; Z95.1 Presence of aortocoronary bypass graft
CPT/HCPCS: 94760; 93656; 93657; 80053; 80048; 84443; C1894 ×2; C1769 ×4; C1760; C1730 ×2; C1731; C1759; C1893; C1733; C1766; C1732; J0330; J1644 ×3; J1940; J3010; J2370; J2704; Q9967; J2001; 92960

== ENCOUNTER 2023-02-26 05:32 | Day surgery (SDC) | payer MEDICARE ==
[2023-02-20 10:46] VITALS: BMI 29.2
[2023-02-26 06:21] VITALS: TEMP 97.1
[2023-02-26] MEDS ORDERED: LACTATED RINGERS 1,000 ML IV ONE (06:54)
[2023-02-26] MEDS ORDERED: LIDOCAINE 2% INJ 20 MG/ML (2 ML VIAL) ONE (07:10)
[2023-02-26] MEDS ORDERED: PROPOFOL 10 MG/ML 20 ML VIAL IV ONE (07:10)
[2023-02-26] MEDS ORDERED: BENZOCAINE SPRAY 1 CAN TOPICAL ONE (07:13)
[2023-02-26] MEDS ORDERED: SODIUM CHLORIDE 0.9% 1,000 ML IV SCH (07:45)
--- NOTE | 2023-02-26 07:48 | P.PCN ---
Date of Procedure: 02/26/23 Description of Procedure: Indication: Atrial fibrillation Procedure Description: After explaining the procedure to the patient, it's risk and complications, blood pressure, heart rate and O2 saturation were monitored. The throat was sprayed with Cetacaine. Patient received sedation per anesthesia department. The probe was introduced into the esophagus without difficulty. Images were obtained. Following that, the probe was removed. There was no immediate complication. Findings: Left atrial size is severely dilated, left atrial appendage is normal. Left ventricular size and systolic function are normal. The aortic valve is normal. Mild thickening of the mitral valve leaflets was noted. Tricuspid valve is normal. Descending thoracic aorta appears to be normal. No pericardial effusion was noted. Contrast bubble study revealed no shunting across the intra-atrial septum. Doppler: Pulse wave and color Doppler were obtained, and revealed moderate mitral with [id number] aortic regurgitation. There was evidence of [id number] shunting through a patent foramen ovale. Mild tricuspid regurgitation was noted. Conclusion: 1. Dilated left atrium with normal appearance of the left atrial appendage 2. Normal in size and systolic function 3. [id number] aortic with moderate mitral regurgitation 4. Mild tricuspid regurgitation 5. Patent foramen ovale with [id number] shunting and no reversible with contrast bubble study Cardioversion: After obtaining sedated state and performing [place] synchronized biphasic cardioversion using 200 J was performed with scientology of sinus mechanism. There was no immediate complications.
[2023-02-26 07:51] LABS: African American GFR (CKD) >90 (>60 ml/min/1.73 sqM); Anion Gap 8 mmol/L; Blood Urea Nitrogen 8 mg/dL (9-20); Calcium 8.6 mg/dL (8.4-10.2); Carbon Dioxide 24 mmol/L (22-30); Chloride 106 mmol/L (98-107); Glucose 96 mg/dL (74-99); Non-African American GFR(CKD) >90 (>60 ml/min/1.73 sqM); Potassium 3.6 mmol/L (3.5-5.1); Sodium 138 mmol/L (137-145)
[2023-02-26 08:43] VITALS: RESP 16
[2023-02-26 08:56] VITALS: BP 139/90; PULSE 82
[2023-02-26] MEDS ORDERED: ATORVASTATIN 20 MG TAB PO SCH (09:00)
[2023-02-26] MEDS ORDERED: hydrALAZINE HCL 25 MG TAB PO SCH (09:00)
[2023-02-26] MEDS ORDERED: VERAPAMIL HCL 120 MG PO SCH (09:00)
[2023-02-26] MEDS ORDERED: lisinopriL 20 MG TAB PO SCH (09:00)
[2023-02-26] MEDS ORDERED: DRONEDARONE 400 MG TAB PO SCH (17:30)
[2023-02-26] MEDS ORDERED: RIVAROXABAN 20 MG TAB PO SCH (17:30)
== END 2023-02-26 09:15 | disposition home or self-care (01) ==
LOC: OR 05:32
PROVIDERS: ATTEND Internal Medicine Interventional Cardiology
DX: I08.1 Rheumatic disorders of both mitral and tricuspid valves (principal); Q21.12 Patent foramen ovale; I48.11 Longstanding persistent atrial fibrillation; Q87.40 Marfan syndrome, unspecified; I10 Essential (primary) hypertension; Z79.01 Long term (current) use of anticoagulants; Z79.811 Long term (current) use of aromatase inhibitors; Z79.899 Other long term (current) drug therapy; Z87.891 Personal history of nicotine dependence
CPT/HCPCS: 93312; 93320; 93325; 92960; 80048; J2704; J2001

== ENCOUNTER → 2023-06-03 | Day surgery (SDC) | payer MEDICARE ==
[~2023-06-03] MED LIST changes: +ATORVASTATIN 20 MG TAB PO SCH; +FLECAINIDE ACETATE 100 MG PO SCH; +LACTATED RINGERS 1,000 ML IV SCH; +LIDOCAINE 1% (10MG/ML) FOR IV START INTRADERMA PRN; +LIDOCAINE 1% INJ 10MG/ML (20 ML MDV) ONE; +METOPROLOL SUCCINATE (ER) 50 MG TAB.ER.24H PO SCH; +NON FORMULARY DRUG (Paroxetine Hcl [Paxil] 40 MG Tablet) PO SCH; +POTASSIUM CHLORIDE ER 10 MEQ TAB.ER.PRT PO SCH; +PROPOFOL 10 MG/ML 20 ML VIAL IV ONE; +RIVAROXABAN 20 MG TAB PO SCH; +TERAZOSIN 5 MG PO SCH; +TRIAMTERENE-HCTZ 37.5-25MG 1 EACH CAP PO SCH; +hydrALAZINE HCL 25 MG TAB PO SCH; +lisinopriL 20 MG TAB PO SCH
[2023-06-03 07:34] VITALS: TEMP 98
--- NOTE | 2023-06-03 07:34 | P.PCN ---
Date of Procedure: 06/03/23 Description of Procedure: Cardioversion Indications: Atrial fibrillation After explaining the procedure to the patient as well as the risks and the complications, his blood pressure, heart rate and O2 saturation was monitored. He received sedation per anesthesia department. A synchronized biphasic cardiov ersion using 200 J was performed with congregational of sinus mechanism, there was no immediate complications.
[2023-06-03 07:41] LABS: African American GFR (CKD) >90 (>60 ml/min/1.73 sqM); Anion Gap 11 mmol/L; Blood Urea Nitrogen 9 mg/dL (9-20); Calcium 8.9 mg/dL (8.4-10.2); Carbon Dioxide 23 mmol/L (22-30); Chloride 102 mmol/L (98-107); Glucose 112 mg/dL (74-99); Non-African American GFR(CKD) >90 (>60 ml/min/1.73 sqM); Sodium 136 mmol/L (137-145)
--- NOTE | 2023-06-03 09:29 | XR ---
EXAMINATION TYPE: XR chest 1V portable DATE OF EXAM: 06/03/2023 9:11 AM CLINICAL INDICATION:Male, 62 years old with history of SHORTNESS OF BREATH; [facility] COMPARISON: Chest radiographs from 08/24/2021. TECHNIQUE: XR chest 1V portable Frontal view of the chest. FINDINGS: Lungs/Pleura: There is no evidence of pleural effusion, focal consolidation, or pneumothorax. Pulmonary vascularity: Pulmonary vascular congestion. Heart/mediastinum: Cardiomediastinal silhouette is enlarged and stable. Musculoskeletal: No acute osseous pathology. Midline sternotomy wires are noted. IMPRESSION: Cardiomegaly and mild pulmonary vascular congestion. Correlate with BNP for congestive heart failure.
[2023-06-03 10:05] VITALS: BP 144/92; PULSE 70
[2023-06-03 10:06] VITALS: RESP 35
== END | disposition home or self-care (01) ==
LOC: OR 06:00
PROVIDERS: ATTEND Internal Medicine Interventional Cardiology
DX: I48.91 Unspecified atrial fibrillation (principal); I10 Essential (primary) hypertension; Q87.40 Marfan syndrome, unspecified; I25.10 Atherosclerotic heart disease of native coronary artery without angina pectoris; Z79.01 Long term (current) use of anticoagulants; Z79.899 Other long term (current) drug therapy; Z87.891 Personal history of nicotine dependence; Z98.61 Coronary angioplasty status; Z98.890 Other specified postprocedural states
CPT/HCPCS: 92960; 80048; 71045; J2001; J2704

== ENCOUNTER 2023-09-30 13:13 | Inpatient (IN) | payer MEDICARE ==
--- NOTE | 2023-09-30 13:58 | XR ---
EXAMINATION TYPE: XR KUB DATE OF EXAM: 09/30/2023 1:48 PM CLINICAL INDICATION:Male, 62 years old with history of abdominal pain; H COMPARISON: None. TECHNIQUE: One radiographic view of the abdomen was obtained. FINDINGS: The bowel gas pattern is nonspecific without dilated loops of small or large bowel. There i s no evidence for organomegaly or pneumoperitoneum. The osseous structures are intact. No abnormal calcifications are present. Fecal material and gas are demonstrated throughout the colon and rectum. Cam deformity to the femoral heads bilaterally. Multilevel degeneration changes spine with levoscoli osis. IMPRESSION: 1. Nonspecific bowel gas pattern without radiographic evidence for acute process. 2. Cam deformities of the femoral heads. 3. Moderate multilevel degeneration changes of the spine.
--- NOTE | 2023-09-30 14:34 | ED ---
Abdominal Pain HPI - General Source: patient, family, RN notes reviewed Mode of arrival: ambulatory Limitations: no limitations <Mackenzie Moreno - Last Filed: 09/30/23 14:33> - General Source: patient, family, RN notes reviewed Limitations: no limitations <Dev Linares - Last Filed: 09/30/23 15:54> - General Chief Complaint: Abdominal Pain Stated Complaint: Jaundice, NV Time Seen by Provider: 09/30/23 14:34 - History of Present Illness Initial Comments: Quick note: Patient is a 62-year-old male presenting to the ER with chief complaint of jaundice and nausea vomiting. Family states he has been having recent dry heaves and had 2 episodes of vomiting this morning. Patient was seen in urgent care and sent to ER for evaluation due to jaundice. Patient has had a 20 pound unintentional weight loss since June. Patient denies any current abdominal pain. (Mackenzie Moreno) Patient is a pleasant 62-year-old male present to the emergency department with nausea and vomiting. Symptoms have been intermittent over the past couple of months. Patient has been more spitting up. Decreased oral intake. Patient did have several episodes of vomiting yesterday. No black tarry stools. No coffee-ground emesis. No bright red blood. No abdominal pain. Patient has felt a little bit fatigued. Patient did go to a clinic today and was advised to come the emergency department with concern for somewhat jaundiced appearance. Patient is on blood thinner with history of A-fib. (Dev Linares) - Related Data Home Medications Medication Instructions Recorded Confirmed Atorvastatin [Lipitor] 20 mg PO DAILY 12/22/18 06/03/23 Multivitamins, Thera [Multivitamin 1 tab PO DAILY 12/22/18 06/03/23 (formulary)] PARoxetine HCL [Paxil] 40 mg PO DAILY 12/22/18 06/03/23 Terazosin [Hytrin] 5 mg PO HS 12/22/18 06/03/23 Triamterene-Hctz 37.5-25Mg 1 cap PO DAILY 12/22/18 06/03/23 [Dyazide 37.5-25 Capsule] lisinopriL 20 mg PO BID 12/22/18 06/03/23 Ferrous Sulfate [Iron (65 MG 325 mg PO DAILY 05/15/21 06/03/23 Elemental)] Cholecalciferol [Vitamin D3 (10 10 mcg PO DAILY 03/18/22 06/03/23 Mcg = 400 Iu)] Potassium Chloride ER [K-Dur 10] 20 meq PO BID 03/18/22 06/03/23 Rivaroxaban [Xarelto] 20 mg PO W/SUPPER 03/18/22 06/03/23 hydrALAZINE HCL [Apresoline] 100 mg PO TID 04/23/22 06/03/23 Flecainide Acetate [Tambocor] 100 mg PO BID 05/27/23 06/03/23 Metoprolol Succinate (ER) [Toprol 50 mg PO QAM 05/27/23 06/03/23 XL] Allergies Allergy/AdvReac Type Severity Reaction Status Date / Time No Known Allergies Allergy Verified 09/30/23 13:23 Review of Systems ROS Other: All systems not noted in ROS Statement are negative. <Mackenzie Moreno - Last Filed: 09/30/23 14:33> ROS Other: All systems not noted in ROS Statement are negative. Constitutional: Denies: fever Eyes: Denies: eye pain ENT: Denies: ear pain Respiratory: Denies: cough Cardiovascular: Denies: chest pain Gastrointestinal: Reports: as per HPI, nausea, vomiting Genitourinary: Denies: dysuria Musculoskeletal: Denies: back pain Skin: Reports: as per HPI <Dev Linares - Last Filed: 09/30/23 15:54> ROS Statement: Those systems with pertinent positive or pertinent negative responses have been documented in the HPI. 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 History of Any Multi-Drug Resistant Organisms: None Reported Past Surgical History: Cardiac Ablation, Coronary Bypass/CABG, Orthopedic Surgery Additional Past Surgical History / Comment(s): "Had Aorta rebuilt in 2004", knee arthroscopy, right carpal tunnel release, 2 cardioversions Past Anesthesia/Blood Transfusion Reactions: No Reported Reaction Past Psychological History: Anxiety Smoking Status: Never smoker Past Alcohol Use History: None Reported Past Drug Use History: None Reported - Past Family History Mother Family Medical History: No Reported History <aMckenzie Moreno - Last Filed: 09/30/23 14:33> General Exam Limitations: no limitations <Mackenzie Moreno - Last Filed: 09/30/23 14:33> Limitations: no limitations General appearance: alert, in no apparent distress Head exam: Present: atraumatic Eye exam: Present: other (Pale conjunctiva) ENT exam: Present: normal oropharynx Neck exam: Present: normal inspection Respiratory exam: Present: normal lung sounds bilaterally Cardiovascular Exam: Present: regular rate, normal rhythm GI/Abdominal exam: Present: soft. Absent: distended, tenderness, organomegaly Extremities exam: Present: normal inspection Neurological exam: Present: alert Psychiatric exam: Present: normal affect, normal mood Skin exam: Present: other (Patient does appear to have a minimal jaundice.) <Dve Linares - Last Filed: 09/30/23 15:54> - General Exam Comments Initial Comments: Visual Physical Exam Vital signs reviewed General: Jaundice, ill-appearing Head: Normocephalic, atraumatic Eyes: PERRLA, EOMI ENT: Airway patent Chest: Nonlabored breathing Skin: No visual rash, jaundice Neuro: Alert and oriented 3 Musculoskeletal: No gross abnormalities (Mackenzie Moreno) Course Vital Signs 09/30/23 13:19 Temperature 97.8 F Pulse Rate 84 Respiratory 18 Rate Blood Pressure 135/72 O2 Sat by Pulse 97 Oximetry Medical Decision Making <Mackenzie Moreno - Last Filed: 09/30/23 14:33> - Lab Data Result diagrams: 09/30/23 15:07 09/30/23 15:07 <Dev Linares - Last Filed: 09/30/23 15:54> - Medical Decision Making I performed the quick note portion of this chart. Electronically signed by Mackenzie Moreno PA-C (Mackenzie Moreno) Was pt. sent in by a medical professional or institution (KONRAD Cruz, VISUAL SUPERVISOR, urgent care, hospital, or correction...) When possible be specific @ -Patient was sent in from the clinic Did you speak to anyone other than the patient for history (EMS, parent, family, police, friend...)? What history was obtained from this source @ -Family is present and helps provide history including symptoms Did you review nursing and triage notes (agree or disagree)? Why? @ -I reviewed and agree with nursing and triage notes Were old charts reviewed (outside hosp., previous admission, EMS record, old EKG, old radiological studies, urgent care reports/EKG's, correction records)? Report findings @ -No old charts were reviewed Differential Diagnosis (chest pain, altered mental status, abdominal pain women, abdominal pain men, vaginal bleeding, weakness, fever, dyspnea, syncope, headache, dizziness, GI bleed, back pain, seizure, CVA, palpatations, mental health, musculoskeletal)? @ -Differential Abdominal Pain Men: Appendicitis, cholecystitis, diverticulosis, ischemic bowel, pancreatitis, hepatitis, UTI, gastroenteritis, AAA, incarcerated hernia, bowel obstruction, constipation, inflammatory bowel, hepatitis, peptic ulcer disease, splenic infarction, perforated viscus, testicular torsion, this is not meant to be an all-inclusive list EKG interpreted by me (3pts min.). @ -A-fib with a rate of 73. Normal axis. QRS 138. QTc 475. Nonspecific intraventricular conduction delay. Q waves in lead III. Nonspecific T waves. X-rays interpreted by me (1pt min.). @ -Abdominal x-ray shows nonspecific findings. CT interpreted by me (1pt min.). @ -CT ordered and pending U/S interpreted by me (1pt. min.). @ -None done What testing was considered but not performed or refused? (CT, X-rays, U/S, labs)? Why? @ -CT ordered and pending What meds were considered but not given or refused? Why? @ -None Did you discuss the management of the patient with other professionals (professionals i.e. , PA, VISUAL SUPERVISOR, lab, RT, psych nurse, clinical social worker, inoculator, teacher, lodge officer, wrapper caser)? Give summary @ -'s case was discussed with Dr. Ramos will admit covering Dr. Bauer. He does request iron studies 1 unit of blood and CT scan Was smoking cessation discussed for >3mins.? @ -No Was critical care preformed (if so, how long)? @ -31 minutes critical care time Were there social determinants of health that impacted care today? How? (Homelessness, low income, unemployed, alcoholism, drug addiction, transportation, low edu. Level, literacy, decrease access to med. care, halfway, rehab)? @ -No Was there de-escalation of care discussed even if they declined (Discuss DNR or withdrawal of care, Hospice)? DNR status @ -No What co-morbidities impacted this encounter? (DM, HTN, Smoking, COPD, CAD, Cancer, CVA, ARF, Chemo, Hep., AIDS, mental health diagnosis, sleep apnea, morbid obesity)? @ -None Was patient admitted / discharged? Hospital course, mention meds given and route, prescriptions, significant lab abnormalities, going to [facility] and other [facility] info. @ -Patient and family are updated on results and plan. Patient will be admitted. Iron studies ordered. Patient will receive blood and IV fluids and will need reevaluation. Admission orders written. Undiagnosed new problem with uncertain prognosis? @ -No Drug Therapy requiring intensive monitoring for toxicity (Heparin, Nitro, Insulin, Cardizem)? @ -Blood transfusion Were any procedures done? @ -No Diagnosis/symptom? @ -Anemia, hyponatremia Acute, or Chronic, or Acute on Chronic? @ -Acute, acute Uncomplicated (without systemic symptoms) or Complicated (systemic symptoms)? @ -Default Side effects of treatment? @ -No Exacerbation, Progression, or Severe Exacerbation? @ -No Poses a threat to life or bodily function? How? (Chest pain, [place], [place], pneumonia, PE, COPD, DKA, ARF, appy, cholecystitis, CVA, Diverticulitis, Homicidal, Suicidal, threat to staff... and all critical care pts) @ -No (Dev Linares) - Lab Data Lab Results 09/30/23 09/30/23 09/30/23 Range/Units 15:07 15:07 15:07 WBC 4.4 (3.8-10.6) k/uL RBC 2.78 L (4.30-5.90) m/uL Hgb 6.8 L* (13.0-17.5) gm/dL Hct 20.9 L (39.0-53.0) % MCV 75.4 L (80.0-100.0) fL MCH 24.5 L (25.0-35.0) pg MCHC 32.5 (31.0-37.0) g/dL RDW 16.4 H (11.5-15.5) % Plt Count 273 (150-450) k/uL MPV 8.6 Neutrophils % 84 % Lymphocytes % 8 % Monocytes % 6 % Eosinophils % 0 % Basophils % 0 % Neutrophils # 3.7 (1.3-7.7) k/uL Lymphocytes # 0.4 L (1.0-4.8) k/uL Monocytes # 0.3 (0-1.0) k/uL Eosinophils # 0.0 (0-0.7) k/uL Basophils # 0.0 (0-0.2) k/uL Anisocytosis Slight Microcytosis Slight Sodium 116 L* (137-145) mmol/L Potassium 3.5 (3.5-5.1) mmol/L Chloride 86 L (98-107) mmol/L Carbon Dioxide 20 L (22-30) mmol/L Anion Gap 10 mmol/L BUN 21 H (9-20) mg/dL Creatinine 1.16 (0.66-1.25) mg/dL Est GFR (CKD-EPI)AfAm 79 (>60 ml/min/1.73 sqM) Est GFR (CKD-EPI)NonAf 68 (>60 ml/min/1.73 sqM) Glucose 120 H (74-99) mg/dL Plasma Lactic Acid Luis Enrique 1.1 (0.7-2.0) mmol/L Calcium 8.5 (8.4-10.2) mg/dL Total Bilirubin 1.6 H (0.2-1.3) mg/dL Conjugated Bilirubin 0.0 (0.0-0.3) mg/dL Unconjugated Bilirubin 1.2 H (0.0-1.1) mg/dL Delta Bilirubin 0.4 H (0.0-0.2) mg/dL AST 28 (17-59) U/L ALT 18 (4-49) U/L Alkaline Phosphatase 79 (38-126) U/L Total Protein 6.8 (6.3-8.2) g/dL Albumin 3.9 (3.5-5.0) g/dL Amylase 86 (30-110) U/L Lipase 108 (23-300) U/L Critical Care Time Critical Care Time: Yes Total Critical Care Time: 31 <Dev Linares - Last Filed: 09/30/23 15:54> Disposition <Mackenzie Moreno - Last Filed: 09/30/23 14:33> Is patient prescribed a controlled substance at d/c from ED?: No Time of Disposition: 15:53 <Dev Linares - Last Filed: 09/30/23 15:54> Clinical Impression: Anemia, Hyponatremia Disposition: ADMITTED IP TO THIS HOSP Referrals: Haile Bauer DO [Primary Care Provider] - 1-2 days
[2023-09-30 15:16] LABS: Anisocytosis Slight; Basophils % (A) 0 %; Eosinophils % (A) 0 %; HCT 20.9 % (39.0-53.0); Lymphocytes # (A) 0.4 k/uL (1.0-4.8); Lymphocytes % (A) 8 %; MCH 24.5 pg (25.0-35.0); MCHC 32.5 g/dL (31.0-37.0); MCV 75.4 fL (80.0-100.0); Mean Platelet Volume 8.6; Microcytosis Slight; Monocytes # (A) 0.3 k/uL (0-1.0); Monocytes % (A) 6 %; Neutrophils # (A) 3.7 k/uL (1.3-7.7); Neutrophils % (A) 84 %; Platelet Count 273 k/uL (150-450); RBC 2.78 m/uL (4.30-5.90); RDW 16.4 % (11.5-15.5); WBC 4.4 k/uL (3.8-10.6)
[2023-09-30 15:26] LABS: ALT 18 U/L (4-49); AST 28 U/L (17-59); African American GFR (CKD) 79 (>60 ml/min/1.73 sqM); Albumin 3.9 g/dL (3.5-5.0); Alkaline Phosphatase 79 U/L (38-126); Amylase 86 U/L (30-110); Anion Gap 10 mmol/L; Bilirubin, Delta 0.4 mg/dL (0.0-0.2); Bilirubin,Unconjugated 1.2 mg/dL (0.0-1.1); Blood Urea Nitrogen 21 mg/dL (9-20); Calcium 8.5 mg/dL (8.4-10.2); Carbon Dioxide 20 mmol/L (22-30); Chloride 86 mmol/L (98-107); Glucose 120 mg/dL (74-99); Lipase 108 U/L (23-300); Non-African American GFR(CKD) 68 (>60 ml/min/1.73 sqM); Potassium 3.5 mmol/L (3.5-5.1); Total Bilirubin 1.6 mg/dL (0.2-1.3); Total Protein 6.8 g/dL (6.3-8.2)
[2023-09-30 15:28] LABS: HGB 6.8 gm/dL (13.0-17.5)
[2023-09-30 15:30] LABS: Sodium 116 mmol/L (137-145)
[2023-09-30] MEDS ORDERED: NALOXONE 0.4 MG/ML 1 ML VIAL IV PRN (15:56)
[2023-09-30] MEDS ORDERED: ONDANSETRON 4 MG/2 ML VIAL IVP PRN (15:56)
--- NOTE | 2023-09-30 16:04 | CT ---
EXAMINATION TYPE: CT abdomen pelvis w con CT DLP: 1489.3 mGycm, Automated exposure control for dose reduction was used. DATE OF EXAM: 09/30/2023 3:43 PM COMPARISON: CT abdomen pelvis most recent from CLINICAL INDICATION:Male, 62 years old with history of jaundice, weight loss; jaundice, nausea, weigh t loss TECHNIQUE: Axial CT abdomen pelvis w con;Sagittal and coronal reformats were created on a separate w orkstation. Contrast used:100 mL of Isovue 300 with IV Contrast, (none if empty) Oral contrast used: without Oral Contrast (none if empty) FINDINGS: LOWER CHEST: Subtle patchy groundglass attenuation is seen. No dense consolidating airspace disease.. No pleural effusions. ABDOMEN LIVER: Variable attenuation could signify medical liver disease. Very infrequently infiltrating metas tatic disease to the liver, can look like this. No focal liver mass identified. GALLBLADDER AND BILE DUCTS: Unremarkable. PANCREAS: Unremarkable.1 SPLEEN: Unremarkable. ADRENAL GLANDS: Unremarkable. KIDNEYS AND URETERS: No evidence of hydronephrosis or renal calculus. The ureters are unremarkable. Simple left kidney cortical cyst and perhaps another subcentimeter cyst. PELVIS BLADDER: Unremarkable REPRODUCTIVE: Unremarkable. ABDOMEN & PELVIS STOMACH AND BOWEL: Stomach and duodenum are unremarkable. No evidence of bowel obstruction. PERITONEUM/RETROPERITONEUM: No evidence of pneumoperitoneum or free fluid. VASCULATURE: No evidence of aortic aneurysm. MUSCULOSKELETAL: No acute osseous abnormalities LYMPH NODES: No gross evidence for lymphadenopathy. SOFT TISSUE/ABDOMINAL WALL: Unremarkable IMPRESSION: 1. An acute process is not appreciated. 2. Liver shows diffuse variable density suggesting medical liver disease such as cirrhosis, hepatitis or other
[2023-09-30] MEDS: SODIUM CHLORIDE 0.9% 1,000 ML IV SCH (16:28)
[2023-09-30] MEDS: PANTOPRAZOLE 40 MG/10 ML VIAL IV SCH (16:30)
[2023-09-30 20:24] LABS: Appearance,Urine Clear (Clear); Bilirubin,Urine Negative (Negative); Blood,Urine Moderate (Negative); Color,Urine Light Yellow; Glucose,Urine (UA) Negative (Negative); Ketones,Urine Negative (Negative); Leukocyte Esterase,Urine Negative (Negative); Mucus,Urine Rare /hpf; Nitrite,Urine Negative (Negative); PH, Urine 6.5 (5.0-8.0); Protein,Urine Trace (Negative); RBC,Urine 169 /hpf (0-5); Specific Gravity,Urine 1.025 (1.001-1.035); Urobilinogen,Urine <2.0 mg/dL (<2.0); WBC,Urine 1 /hpf (0-5)
[2023-09-30] MEDS: RIVAROXABAN 20 MG TAB PO SCH (20:35)
--- NOTE | 2023-09-30 20:58 | P.HPIM ---
History of Present Illness H&P Date: 09/30/23 Chief Complaint: Multiple symptom This is a pleasant 62-year-old patient, is a resident at [facility]. Follows with Dr. Bauer. Chronic stable medical condition include atrial fibrillation, hypertension, hyperlipidemia, Marfan syndrome with a mental age of 81-year-old. History of coronary ablation. For atrial fibrillation. Thoracic aneurysm surgery for ascending aorta graft in 2004 Patient's sister Kasey is the legal guardian. Her was the bedside takes the patient all his appointment. About 2 months patient is been having dry heaves. More so in the since yesterday. Has been losing weight has lost about 23 pounds in the last 3 to 4 months. Diet. Does get short of breath. Sleeps with 1 pillow at night. Mild edema. Review of systems: GEN.: Decreased appetite weight loss EYES: None HEENT: None NECK: None RESPIRATORY: Short of breath CARDIOVASCULAR: As above GASTROINTESTINAL: Has a bowel movement 3-4 times a week e GENITOURINARY: None MUSCULOSKELETAL: None LYMPHATICS: None HEMATOLOGICAL: None PSYCHIATRY: Mental age of 81-year-old e NEUROLOGICAL: None Physical examination: VITAL SIGNS: 98.4, 80, 16, 137 x 93, 95% room air GENERAL: BMI 29.9, reclining in bed. Marfanoid features EYES: Pupils equal. Conjunctiva khris l. HEENT: External appearance of nose and ears normal, oral cavity grossly normal. NECK: JVD not raised; masses not palpable. HEART: Heart sounds are regular l; no edema. LUNGS: Respiratory rate normal; clear to auscultation. ABDOMEN: Soft, nontender, liver spleen not palpable, no masses palpable. PSYCH: Able to answer simple questions a l. MUSCULOSKELETAL:No Clubbing/cyanosis;muscles-grossly intact NEUROLOGICAL: Cranial nerves grossly intact; no facial asymmetry, power and sensation grossly intact. LYMPHATICS: No lymph nodes palpable in the axilla and neck Investigation September 29: White count 4.4 hemoglobin 6.8 platelets 273 sodium 116 potassium 3.5 BUN 21 creatinine 1.16 total bilirubin 1.6 EKG tracing personally reviewed by me-atrial fibrillation. PVCs. CT scan abdomen pelvis abnormal liver on CT scan t: Liver suggestive of cirrhosis/hepatitis Assessment plan: -Weight loss loss of appetite for last 3 to 4 months. Patient lost about [address] scan abdomen pelvis nonspecific Check AFP, CEA. PSA -Abnormal liver morphology on the CT scan Check hepatitis profile. Acute Liver ultrasound to evaluate for cirrhosis -Marfan syndrome. Mental age of 9-year-old -Persistent atrial fibrillation History of cardiac ablation. Toprol-XL. Xarelto. 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 History of Any Multi-Drug Resistant Organisms: None Reported Past Surgical History: Cardiac Ablation, Coronary Bypass/CABG, Orthopedic Surgery Additional Past Surgical History / Comment(s): "Had Aorta rebuilt in 2004", knee arthroscopy, right carpal tunnel release, 2 cardioversions Past Anesthesia/Blood Transfusion Reactions: No Reported Reaction Past Psychological History: Anxiety Smoking Status: Never smoker Past Alcohol Use History: None Reported Past Drug Use History: None Reported - Past Family History Mother Family Medical History: No Reported History Medications and Allergies Home Medications Medication Instructions Recorded Confirmed Type Atorvastatin [Lipitor] 20 mg PO HS 12/22/18 09/30/23 History Multivitamins, Thera [Multivitamin 1 tab PO DAILY 12/22/18 09/30/23 History (formulary)] PARoxetine HCL [Paxil] 40 mg PO DAILY 12/22/18 09/30/23 History Terazosin [Hytrin] 5 mg PO HS 12/22/18 09/30/23 History Triamterene-Hctz 37.5-25Mg 1 cap PO DAILY 12/22/18 09/30/23 History [Dyazide 37.5-25 Capsule] lisinopriL 20 mg PO BID 12/22/18 09/30/23 History Ferrous Sulfate [Iron (65 MG 325 mg PO DAILY 05/15/21 09/30/23 History Elemental)] Cholecalciferol [Vitamin D3 (10 10 mcg PO DAILY 03/18/22 09/30/23 History Mcg = 400 Iu)] Potassium Chloride ER [K-Dur 10] 20 meq PO BID 03/18/22 09/30/23 History Rivaroxaban [Xarelto] 20 mg PO W/SUPPER 03/18/22 09/30/23 History Metoprolol Succinate (ER) [Toprol 75 mg PO DAILY 05/27/23 09/30/23 History XL] Furosemide [Lasix] 20 mg PO DAILY 09/30/23 09/30/23 History Metoprolol Succinate (ER) [Toprol 50 mg PO HS 09/30/23 09/30/23 History Xl] hydrALAZINE HCL [Apresoline] 100 mg PO TID 09/30/23 09/30/23 History Allergies Allergy/AdvReac Type Severity Reaction Status Date / Time No Known Allergies Allergy Verified 09/30/23 17:22 Physical Exam Vitals: Vital Signs Temp Pulse Resp BP Pulse Ox 09/30/23 20:15 98.5 F 77 17 133/85 09/30/23 20:05 98.4 F 73 17 134/92 09/30/23 19:55 98.4 F 77 18 136/90 09/30/23 19:51 98.7 F 76 18 133/85 95 09/30/23 19:48 97.8 F 70 16 132/97 96 09/30/23 19:41 98.3 F 72 18 127/98 96 09/30/23 18:00 81 18 142/82 95 09/30/23 16:32 98.5 F 79 18 143/96 97 09/30/23 13:19 97.8 F 84 18 135/72 97 Intake and Output 09/30/23 09/30/23 09/30/23 06:59 14:59 22:59 Intake Total 0 Balance 0 Intake: Blood Product 0 Unit 0 Other: Weight 108.409 kg Results CBC & Chem 7: 09/30/23 15:07 09/30/23 15:07 Labs: Abnormal Lab Results - Last 24 Hours (Table) 09/30/23 09/30/23 09/30/23 Range/Units 15:07 15:07 16:19 RBC 2.78 L (4.30-5.90) m/uL Hgb 6.8 L* (13.0-17.5) gm/dL Hct 20.9 L (39.0-53.0) % MCV 75.4 L (80.0-100.0) fL MCH 24.5 L (25.0-35.0) pg RDW 16.4 H (11.5-15.5) % Lymphocytes # 0.4 L (1.0-4.8) k/uL Sodium 116 L* (137-145) mmol/L Chloride 86 L (98-107) mmol/L Carbon Dioxide 20 L (22-30) mmol/L BUN 21 H (9-20) mg/dL Glucose 120 H (74-99) mg/dL Total Bilirubin 1.6 H (0.2-1.3) mg/dL Unconjugated Bilirubin 1.2 H (0.0-1.1) mg/dL Delta Bilirubin 0.4 H (0.0-0.2) mg/dL Folate 34.60 H (4.40-31.00) ng/mL Urine Protein (Negative) Urine Blood (Negative) Urine RBC (0-5) /hpf Urine Mucus (None) /hpf Crossmatch 09/30/23 09/30/23 Range/Units 16:50 19:27 RBC (4.30-5.90) m/uL Hgb (13.0-17.5) gm/dL Hct (39.0-53.0) % MCV (80.0-100.0) fL MCH (25.0-35.0) pg RDW (11.5-15.5) % Lymphocytes # (1.0-4.8) k/uL Sodium (137-145) mmol/L Chloride (98-107) mmol/L Carbon Dioxide (22-30) mmol/L BUN (9-20) mg/dL Glucose (74-99) mg/dL Total Bilirubin (0.2-1.3) mg/dL Unconjugated Bilirubin (0.0-1.1) mg/dL Delta Bilirubin (0.0-0.2) mg/dL Folate (4.40-31.00) ng/mL Urine Protein Trace H (Negative) Urine Blood Moderate H (Negative) Urine RBC 169 H (0-5) /hpf Urine Mucus Rare H (None) /hpf Crossmatch See Detail
[2023-09-30 21:25] LABS: % Iron Saturation 7.82 (15.00-50.00); Ferritin 91.1 ng/mL (22.0-322.0)
[2023-09-30] MEDS: DOXAZOSIN 4 MG TAB PO SCH (23:09)
[2023-09-30] MEDS: METOPROLOL SUCCINATE (ER) 50 MG TAB.ER.24H PO SCH (23:09)
[2023-09-30] MEDS: ATORVASTATIN 20 MG TAB PO SCH (23:09)
[2023-10-01] MEDS: PARoxetine 20 MG TAB PO SCH (08:47)
[2023-10-01] MEDS: MULTIVITAMINS, THERA 1 EACH TAB PO SCH (08:47)
[2023-10-01] MEDS: METOPROLOL SUCCINATE (ER) 25 MG TAB.ER.24H PO SCH (08:47)
--- NOTE | 2023-10-01 10:16 | US ---
EXAMINATION TYPE: US abdomen limited DATE OF EXAM: 09/30/2023 COMPARISON: CT: Today CLINICAL INDICATION: Male, 62 years old with history of Abnormal liver and CT scan; abnormal liver on CT TECHNIQUE: Multiple sonographic images of the right upper quadrant are obtained. FINDINGS: EXAM MEASUREMENTS: Liver Length: 19.3 cm Gallbladder Wall: 0.2 cm CBD: 0.3 cm Right Kidney: 14.9 x 6.3 x 6.7 cm BIOSTATISTICS MANAGER NOTES: Pancreas: Parts seen appear wnl Liver: Heterogeneous. Hypoechoic area seen in right inferior lobe of liver measuring 4.5 x 4.0 x 3.9 cm . This is atypical for hemangioma. Additional workup is recommended. Gallbladder: wnl Evidence for sonographic Hernandez's sign: No CBD: wnl Right Kidney: wnl IMPRESSION: 1. Hepatomegaly with mild fatty infiltration liver. 2. Solid lesion within the right lobe liver measuring 4 cm. This appears atypical for hemangioma. Add itional workup with contrast MRI is recommended
[2023-10-01 10:28] LABS: Anisocytosis Slight; Basophils % (A) 0 %; Eosinophils % (A) 0 %; HCT 23.2 % (39.0-53.0); HGB 7.3 gm/dL (13.0-17.5); Hypochromasia Slight; Lymphocytes # (A) 0.4 k/uL (1.0-4.8); Lymphocytes % (A) 6 %; MCH 24.7 pg (25.0-35.0); MCHC 31.5 g/dL (31.0-37.0); MCV 78.4 fL (80.0-100.0); Mean Platelet Volume 8.4; Microcytosis Slight; Monocytes # (A) 0.4 k/uL (0-1.0); Monocytes % (A) 7 %; Neutrophils # (A) 4.7 k/uL (1.3-7.7); Neutrophils % (A) 85 %; Platelet Count 293 k/uL (150-450); RBC 2.95 m/uL (4.30-5.90); RDW 16.6 % (11.5-15.5); WBC 5.5 k/uL (3.8-10.6)
[2023-10-01 10:32] LABS: ALT 18 U/L (4-49); AST 21 U/L (17-59); African American GFR (CKD) 80 (>60 ml/min/1.73 sqM); Albumin 3.7 g/dL (3.5-5.0); Alkaline Phosphatase 73 U/L (38-126); Anion Gap 12 mmol/L; Blood Urea Nitrogen 18 mg/dL (9-20); Calcium 8.4 mg/dL (8.4-10.2); Carbon Dioxide 19 mmol/L (22-30); Chloride 84 mmol/L (98-107); Glucose 103 mg/dL (74-99); Magnesium 1.8 mg/dL (1.6-2.3); Non-African American GFR(CKD) 69 (>60 ml/min/1.73 sqM); Potassium 3.2 mmol/L (3.5-5.1); Total Bilirubin 1.8 mg/dL (0.2-1.3); Total Protein 6.5 g/dL (6.3-8.2)
[2023-10-01 10:50] LABS: Sodium 115 mmol/L (137-145)
[2023-10-01] MEDS: POTASSIUM CHLORIDE ER 20 MEQ TAB.ER PO SCH (13:41)
--- NOTE | 2023-10-01 16:01 | P.PN ---
Progress Note - Text Progress Note Date: 10/01/23 Chief Complaint: Multiple symptom This is a pleasant 62-year-old patient, is a resident at [facility]. Follows with Dr. Bauer. Chronic stable medical condition include atrial fibrillation, hypertension, hyperlipidemia, Marfan syndrome with a mental age of 81-year-old. History of coronary ablation. For atrial fibrillation. Thoracic aneurysm surgery for ascending aorta graft in 2004 Patient's sister Kasey is the legal guardian. Her was the bedside takes the patient all his appointment. About 2 months patient is been having dry heaves. More so in the since yesterday. Has been losing weight has lost about 23 pounds in the last 3 to 4 months. Diet. Does get short of breath. Sleeps with 1 pillow at night. Mild edema. September 30: Patient changed to a softer diet. Had 100% of his lunch. Abdominal ultrasound shows hypoechoic area in the right inferior lobe of liver 4.5 x 4 x 3.9 cm-described as a solid lesion.. Discussed with [id number] at the bedside. Sodium remains at 115. Increase IV fluids to 100 cc an hour. Add s alt tablet. Pending serum osmolality. Patient's had decreased oral intake at home. Patient also has iron deficiency anemia. Will transfuse IV iron. Active Medications Atorvastatin Calcium (Atorvastatin 20 Mg Tab) 20 mg PO HS [facility] Last Admin: 09/30/23 23:09 Dose: 20 mg Doxazosin Mesylate (Doxazosin 4 Mg Tab) 4 mg PO HS [facility] Last Admin: 09/30/23 23:09 Dose: 4 mg Sodium Chloride (Saline 0.9%) 1,000 mls @ 100 mls/hr IV .Q10H [facility] Ferric Sodium Gluconate 125 mg (/ Sodium Chloride) 110 mls @ 100 mls/hr IVPB DAILY [facility] Stop: 10/03/23 10:05 Metoprolol Succinate (Metoprolol Succinate (Er) 50 Mg Tab.Er.24h) 50 mg PO [facility] Last Admin: 09/30/23 23:09 Dose: 50 mg Metoprolol Succinate (Metoprolol Succinate (Er) 25 Mg Tab.Er.24h) 75 mg PO DAILY [facility] Last Admin: 10/01/23 08:47 Dose: 75 mg Multivitamins (Multivitamins, Thera 1 Each Tab) 1 each PO DAILY [facility] Last Admin: 10/01/23 08:47 Dose: 1 each Naloxone HCl (Naloxone 0.4 Mg/Ml 1 Ml Vial) 0.2 mg IV Q2M PRN PRN Reason: Opioid Reversal Ondansetron HCl (Ondansetron 4 Mg/2 Ml Vial) 4 mg IVP Q8HR PRN PRN Reason: Nausea And Vomiting Paroxetine HCl (Paroxetine 20 Mg Tab) 40 mg PO DAILY [facility] Last Admin: 10/01/23 08:47 Dose: 40 mg Rivaroxaban (Rivaroxaban 20 Mg Tab) 20 mg PO W/SUPPER [facility]; Protocol Last Admin: 09/30/23 20:35 Dose: 20 mg Sodium Chloride (Sodium Chloride Tab 1 Gm Tab) 2 gm PO TID [facility] Physical examination: VITAL SIGNS: 98.2, 78, 20, 150 x 96, 94% room air GENERAL: Tired, reclining in bed. Marfanoid features EYES: Pupils equal. Conjunctiva pale HEENT: External appearance of nose and ears normal, oral cavity grossly normal. NECK: JVD not raised; masses not palpable. HEART: Heart sounds are regular l; no edema. LUNGS: Respiratory rate normal; clear to auscultation. ABDOMEN: Soft, nontender, liver spleen not palpable, no masses palpable. PSYCH: Able to answer simple questions a l. MUSCULOSKELETAL:No Clubbing/cyanosis;muscles-grossly intact Investigation September 30: White count 5.5 hemoglobin 7.3 platelets 293 sodium 115 potassium 3.2 BUN 18 creatinine 1.15 Liver ultrasound: Hypoechoic area/solid in the right inferior lobe measuring 4.5 x 4 x 3.9 cm. Iron 32 TIBC 409% saturation 7.82 ferritin 91.1 total bilirubin 1.8 Vitamin B12 524 folate 34.6 September 29: White count 4.4 hemoglobin 6.8 platelets 273 sodium 116 potassium 3.5 BUN 21 creatinine 1.16 total bilirubin 1.6 EKG tracing personally reviewed by me-atrial fibrillation. PVCs. CT scan abdomen pelvis abnormal liver on CT scan t: Liver suggestive of cirrhosis/hepatitis Assessment plan: -Severe hyponatremia. Suspect hypoosmolar: Slow to respond Fluid restriction 1500 cc a day. Salt tablets. Avoid free fluid -Weight loss loss of appetite for last 3 to 4 months. Patient lost about [address] scan abdomen pelvis nonspecific Pending AFP, CEA. PSA -Abnormal liver morphology on the CT scan: Ultrasound showing 4.5 x 4 x 3.9 cm solid tumor. For further outpatient workup -Marfan syndrome. Mental age of 9-year-old -Iron deficiency anemia: New diagnosis IV Ferrlecit -Persistent atrial fibrillation History of cardiac ablation. Toprol-XL. Xarelto. -Ascending aortic arch graft from warfarin in 2004 -BPH Cardura -Hyperlipidemia Lipitor -Anxiety Paxil -Legal guardian, sister: Mallika Sierra -Full code Care was discussed with [id number] at the bedside. Salt tablets added. Normal saline. IV Ferrlecit x 3 doses. 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 History of Any Multi-Drug Resistant Organisms: None Reported Past Surgical History: Cardiac Ablation, Coronary Bypass/CABG, Orthopedic Surgery Additional Past Surgical History / Comment(s): "Had Aorta rebuilt in 2004", knee arthroscopy, right carpal tunnel release, 2 cardioversions Past Anesthesia/Blood Transfusion Reactions: No Reported Reaction Past Psychological History: Anxiety Smoking Status: Never smoker Past Alcohol Use History: None Reported Past Drug Use History: None Reported
[2023-10-01] MEDS: SODIUM CHLORIDE TAB 1 GM TAB PO SCH (16:38)
[2023-10-01] MEDS: SODIUM CHLORIDE 0.9% 1,000 ML IV SCH (16:38)
[2023-10-01] MEDS: SODIUM FERRIC GLUCONAT-SUCROSE 125 MG in SODIUM CHLORIDE 0.9% 100 ML IVPB SCH (17:10)
[2023-10-01 22:03] LABS: Carcinoembryonic Antigen <2.0 ng/mL (0.0-4.9)
[2023-10-01 22:09] LABS: Glucose,Whole Blood 110 mg/dL (70-110)
[2023-10-01 22:11] LABS: Hepatitis A Antibody IgM Nonreactive (Nonreactive); Hepatitis B Core IgM Nonreactive (Nonreactive); Hepatitis B Surface Antigen Nonreactive (Nonreactive); Hepatitis C IgG Antibody Nonreactive (Nonreactive)
[2023-10-01 22:29] LABS: Anisocytosis Slight; Basophils % (A) 0 %; Eosinophils % (A) 0 %; HCT 22.9 % (39.0-53.0); HGB 7.2 gm/dL (13.0-17.5); Hypochromasia Slight; Lymphocytes # (A) 0.6 k/uL (1.0-4.8); Lymphocytes % (A) 11 %; MCH 24.8 pg (25.0-35.0); MCHC 31.7 g/dL (31.0-37.0); MCV 78.4 fL (80.0-100.0); Mean Platelet Volume 8.7; Microcytosis Slight; Monocytes # (A) 0.5 k/uL (0-1.0); Monocytes % (A) 9 %; Neutrophils # (A) 4.1 k/uL (1.3-7.7); Neutrophils % (A) 78 %; Platelet Count 253 k/uL (150-450); RBC 2.92 m/uL (4.30-5.90); RDW 16.6 % (11.5-15.5); WBC 5.3 k/uL (3.8-10.6)
[2023-10-01 22:32] LABS: Alpha Fetoprotein, Tumor Mkr <3.00 ng/mL (0.00-7.90)
[2023-10-01 22:40] LABS: ALT 17 U/L (4-49); AST 22 U/L (17-59); African American GFR (CKD) 77 (>60 ml/min/1.73 sqM); Albumin 3.5 g/dL (3.5-5.0); Alkaline Phosphatase 68 U/L (38-126); Anion Gap 9 mmol/L; Blood Urea Nitrogen 19 mg/dL (9-20); Calcium 7.9 mg/dL (8.4-10.2); Carbon Dioxide 22 mmol/L (22-30); Chloride 86 mmol/L (98-107); Glucose 94 mg/dL (74-99); Magnesium 1.8 mg/dL (1.6-2.3); Non-African American GFR(CKD) 66 (>60 ml/min/1.73 sqM); Potassium 3.4 mmol/L (3.5-5.1); Total Bilirubin 1.3 mg/dL (0.2-1.3); Total Protein 6.2 g/dL (6.3-8.2)
[2023-10-01 22:44] LABS: Sodium 117 mmol/L (137-145)
[2023-10-01 23:01] LABS: Glucose,Whole Blood 131 mg/dL (70-110)
[2023-10-01 23:07] LABS: ABG Base Excess -3.1 mmol/L; ABG HCO3 21 mmol/L (21-25); ABG PCO2 28 mmHg (35-45); ABG PH 7.47 (7.35-7.45); ABG PO2 67 mmHg (83-108); ABG TCO2 21 mmol/L (19-24); Allen Test Performed? Yes
[2023-10-01] MEDS: SODIUM CHLORIDE 3%(HYPERTONIC) 500 ML IV ONE (23:46)
[2023-10-01] MEDS: POTASSIUM CHLORIDE ER 20 MEQ TAB.ER PO STA (23:46)
[2023-10-02 05:04] LABS: African American GFR (CKD) >90 (>60 ml/min/1.73 sqM); Anion Gap 4 mmol/L; Blood Urea Nitrogen 16 mg/dL (9-20); Calcium 7.8 mg/dL (8.4-10.2); Carbon Dioxide 22 mmol/L (22-30); Chloride 94 mmol/L (98-107); Glucose 91 mg/dL (74-99); Non-African American GFR(CKD) 81 (>60 ml/min/1.73 sqM); Potassium 3.3 mmol/L (3.5-5.1); Sodium 120 mmol/L (137-145)
[2023-10-02 05:23] LABS: Anisocytosis Slight; HCT 21.3 % (39.0-53.0); Hypochromasia Slight; MCH 25.9 pg (25.0-35.0); MCHC 32.9 g/dL (31.0-37.0); MCV 78.5 fL (80.0-100.0); Mean Platelet Volume 8.5; Microcytosis Slight; Platelet Count 219 k/uL (150-450); Poikilocytosis Slight; RBC 2.71 m/uL (4.30-5.90); RDW 16.3 % (11.5-15.5); WBC 5.1 k/uL (3.8-10.6)
[2023-10-02] MEDS ORDERED: Potassium Replacement Protocol 1 EACH MISC MISCELLANE PRN ×2 (05:41→14:12)
[2023-10-02] MEDS: POTASSIUM CHLORIDE ER 20 MEQ TAB.ER PO SCH ×2 (06:07→14:44)
[2023-10-02 08:17] LABS: African American GFR (CKD) >90 (>60 ml/min/1.73 sqM); Anion Gap 9 mmol/L; Blood Urea Nitrogen 15 mg/dL (9-20); Calcium 8.1 mg/dL (8.4-10.2); Carbon Dioxide 21 mmol/L (22-30); Chloride 96 mmol/L (98-107); Glucose 95 mg/dL (74-99); Magnesium 1.9 mg/dL (1.6-2.3); Non-African American GFR(CKD) 88 (>60 ml/min/1.73 sqM); Potassium 3.3 mmol/L (3.5-5.1); Sodium 126 mmol/L (137-145)
[2023-10-02] MEDS ORDERED: Magnesium Replacement Protocol 1 EACH MISC MISCELLANE PRN (09:08)
[2023-10-02] MEDS: MAGNESIUM SULFATE-D5W PMX 1 GM in DEXTROSE/WATER 1 100ML.BAG IVPB ONE (09:22)
--- NOTE | 2023-10-02 09:50 | XR ---
EXAMINATION TYPE: XR chest 1V portable DATE OF EXAM: 10/02/2023 9:24 AM CLINICAL INDICATION:Male, 62 years old with history of Hypoxemia; PH[facility] COMPARISON: Chest radiographs from 06/03/2023 TECHNIQUE: XR chest 1V portable Frontal view of the chest. FINDINGS: Lungs/Pleura: There is no evidence of pleural effusion, focal consolidation, or pneumothorax. Pulmonary vascularity: Mild pulmonary venous congestion. Similar to prior study such that chronic fib rosis in the differential. Heart/mediastinum: The heart is similarly enlarged. Postoperative changes are present in the mediast inum. Musculoskeletal: No acute osseous pathology. Other findings: Sternotomy Lines/Tubes: IMPRESSION: Cardiomegaly and mild pulmonary venous congestion.
[2023-10-02] MEDS: DEXTROSE 5% IN WATER 1,000 ML IV SCH (10:40)
[2023-10-02 11:00] VITALS: BMI 30.1
--- NOTE | 2023-10-02 11:22 | P.NPCON ---
History of Present Illness - Reason for Consult hyponatremia - History of Present Illness Reason for consultation: Hyponatremia History of present illness: Patient is a 62-year-old male seen in new consultation for hyponatremia. Patient sodium level on admission September 30, 2023 at 3 PM was 116. September 30 at 9:47 AM sodium level was 115. Nephrology was consulted late last night and patient was started on 3% saline. 3% saline was stopped around 4 AM. Sodium level at that time was 121. Repeat at 7:46 AM was 126. Patient received dose of DDAVP this morning and is currently also receiving D5W to slow the correction of hyponatremia. Patient has developmental delay and also has history of Marfan syndrome. Patient states he drinks significant amount of water, at least 8 glasses a day. He denies diarrhea but does admit to vomiting for months. Denies use of nonsteroidals. No history of diabetes. Patient does have history of heart valve repair and also history of aneurysm repair. It is also noted the patient had 20 pounds weight loss and is being worked up for liver lesion. He was taking diuretics at home including Lasix and hydrochlorothiazide. Both are currently held. Vital signs are stable. General: Resting in bed. No acute distress. HEENT: Head exam is unremarkable. On nasal cannula. LUNGS: No audible rhonchi or wheezes. HEART: Rate and Rhythm are regular. ABDOMEN: Nontender. EXTREMITITES: Trace edema. 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 History of Any Multi-Drug Resistant Organisms: None Reported Past Surgical History: Cardiac Ablation, Coronary Bypass/CABG, Orthopedic Surgery Additional Past Surgical History / Comment(s): "Had Aorta rebuilt in 2004", knee arthroscopy, right carpal tunnel release, 2 cardioversions Past Anesthesia/Blood Transfusion Reactions: No Reported Reaction Past Psychological History: Anxiety Smoking Status: Never smoker Past Alcohol Use History: None Reported Past Drug Use History: None Reported - Past Family History Mother History Unknown: Yes Family Medical History: No Reported History Medications and Allergies Home Medications Medication Instructions Recorded Confirmed Type Atorvastatin [Lipitor] 20 mg PO HS 12/22/18 09/30/23 History Multivitamins, Thera [Multivitamin 1 tab PO DAILY 12/22/18 09/30/23 History (formulary)] PARoxetine HCL [Paxil] 40 mg PO DAILY 12/22/18 09/30/23 History Terazosin [Hytrin] 5 mg PO HS 12/22/18 09/30/23 History Triamterene-Hctz 37.5-25Mg 1 cap PO DAILY 12/22/18 09/30/23 History [Dyazide 37.5-25 Capsule] lisinopriL 20 mg PO BID 12/22/18 09/30/23 History Ferrous Sulfate [Iron (65 MG 325 mg PO DAILY 05/15/21 09/30/23 History Elemental)] Cholecalciferol [Vitamin D3 (10 10 mcg PO DAILY 03/18/22 09/30/23 History Mcg = 400 Iu)] Potassium Chloride ER [K-Dur 10] 20 meq PO BID 03/18/22 09/30/23 History Rivaroxaban [Xarelto] 20 mg PO W/SUPPER 03/18/22 09/30/23 History Metoprolol Succinate (ER) [Toprol 75 mg PO DAILY 05/27/23 09/30/23 History XL] Furosemide [Lasix] 20 mg PO DAILY 09/30/23 09/30/23 History Metoprolol Succinate (ER) [Toprol 50 mg PO HS 09/30/23 09/30/23 History Xl] hydrALAZINE HCL [Apresoline] 100 mg PO TID 09/30/23 09/30/23 History Allergies Allergy/AdvReac Type Severity Reaction Status Date / Time No Known Allergies Allergy Verified 09/30/23 17:22 Physical Exam Vitals: Vital Signs Temp Pulse Pulse Resp BP BP BP 10/02/23 07:00 71 18 155/105 10/02/23 06:30 76 19 123/75 10/02/23 06:00 58 L 13 142/84 10/02/23 05:30 62 16 128/88 10/02/23 05:00 53 L 14 137/83 10/02/23 04:30 51 L 13 130/80 10/02/23 04:00 98.1 F 62 13 124/80 10/02/23 03:30 53 L 24 126/72 10/02/23 03:00 67 11 L 140/78 10/02/23 02:30 61 17 148/81 10/02/23 02:00 73 25 H 143/87 10/02/23 01:30 72 32 H 142/103 10/02/23 01:00 72 11 L 154/87 10/02/23 00:30 78 7 L 161/102 10/02/23 00:00 98.3 F 76 26 H 147/97 10/01/23 23:30 82 28 H 10/01/23 23:00 76 28 H 171/112 10/01/23 22:56 17 10/01/23 20:00 98.6 F 70 16 155/83 10/01/23 15:54 97.6 F 64 17 130/77 10/01/23 15:45 64 16 10/01/23 13:40 78 20 Pulse Ox 10/02/23 07:00 10/02/23 06:30 10/02/23 06:00 97 10/02/23 05:30 97 10/02/23 05:00 97 10/02/23 04:30 92 L 10/02/23 04:00 94 L 10/02/23 03:30 95 10/02/23 03:00 93 L 10/02/23 02:30 96 10/02/23 02:00 94 L 10/02/23 01:30 95 10/02/23 01:00 96 10/02/23 00:30 98 10/02/23 00:00 99 10/01/23 23:30 10/01/23 23:00 10/01/23 22:56 10/01/23 20:00 98 10/01/23 15:54 100 10/01/23 15:45 10/01/23 13:40 Intake and Output 10/01/23 10/02/23 10/02/23 22:59 06:59 14:59 Intake Total 0 125 Output Total 800 4420 Balance -800 -4294 Intake: Intake, IV Titration 125 Amount Sodium Chloride 3%( 125 Hypertonic) 500 ml @ 25 mls/hr IV .Q20H [facility] Rx#: [id number] Oral 0 Output: Urine 800 4420 Other: Voiding Method Urinal Indwelling Catheter Weight 109.4 kg 109.4 kg Results - Lab Results Most recent lab results ABG pH 7.47 (7.35-7.45) H 10/01/23 22:59 ABG pCO2 28 mmHg (35-45) L 10/01/23 22:59 ABG pO2 67 mmHg (83-108) L 10/01/23 22:59 ABG HCO3 21 mmol/L (21-25) 10/01/23 22:59 ABG O2 Saturation 95.0 % (94-97) 10/01/23 22:59 Calcium 8.1 mg/dL (8.4-10.2) L 10/02/23 07:46 Magnesium 1.9 mg/dL (1.6-2.3) 10/02/23 07:46 10/02/23 04:28 10/02/23 07:46 Assessment and Plan Plan: Assessment: 1. Hypovolemic hyponatremia from vomiting worsened with the use of thiazide diuretic and also component of poor solute intake. Sodium level 116 on September 30, 2023 at 3 PM and repeat was 115 on September 30 at 9:47 AM. Status post 3% saline overnight. Most recent sodium level 126. Status post DDAVP and is currently on D5W. 2. Hypokalemia from diuretic use and poor intake. 3. History of Marfan syndrome. 4. Liver lesion. 5. Acute blood loss anemia. Hemoglobin 7.0 this morning. Receiving IV iron. Plan: Maintain D5W for now. Follow-up repeat sodium level. Potassium replaced. Check serum and urine osmolality and urine sodium level. Check TSH and cortisol level. Encouraged oral intake. Thank you for the consultation. I will continue to follow the patient with you during his hospital stay.
[2023-10-02] MEDS: DESMOPRESSIN ACETATE 4 MCG/ML VIAL (MDV) IV ONE (11:30)
--- NOTE | 2023-10-02 12:58 | P.CNPUL ---
History of Present Illness Consult date: 10/02/23 Requesting physician: Arsh Ramos Reason for consult: other (ICU admission with hyponatremia/severe) Chief complaint: Nausea vomiting and dry heaves History of present illness: This is a 62-year-old white male with history of multiple medical problems, patient is not a great historian, could not get much information from the patient himself, most of my information was obtained from the chart. Apparently the patient has been noticed to have nausea vomiting and drives heaves for the last 2 days. He was evaluated at urgent care, and he was noted to have abnormal labs and there was a concern about a 20 pound weight loss. Patient was sent to the emergency room with a chief complaint of nausea and vomiting, symptoms have been going on quite frequently for the last couple of months. Patient has poor oral intake, and he had multiple episodes of vomiting yesterday. No melena, no hematemesis, no bright red blood per rectum, no abdominal pain. Patient was noted to be quite fatigued. Workup in the ER showed low sodium of 116. Follow- up few hours later was 117. I was called about this patient yesterday because of his worsening overall clinical status, patient feels very weak, getting a bit almost obtunded, and unable to volunteer any adequate history. Considering his sodium being low, I recommended transfer to the ICU for 3% infusion, and I recommended nephrology consultation. Patient did receive 3% saline and this was stopped around 4 AM. Sodium level went as high as 126 at 746 this a.m. Patient also received a dose of DDAVP this morning, and he is on D5W to slow the correction of his hyponatremia. Looking back at the history, patient does have history of developmental delay, history of Marfan syndrome, history of thoracic aortic aneurysm. In addition to all of this the patient has been losing weight about 20 pound weight loss over the last few months, he was also taking diuretics in the form of Lasix and hydrochlorothiazide which are presently on hold. CT of abdomen and pelvis on this admission showed diffuse variable densities suggesting medical liver disease such as cirrhosis or hepatitis. Ultrasound of the liver showed heterogeneous hypoechoic area in the right inferior lobe of the liver measuring 4.5 x 4.0 x 3.9 cm. Chest x-ray showed no evidence of pulmonary mass, however did show cardiomegaly and mild pulmonary vascular congestion Review of Systems ROS unobtainable: due to mental status 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 History of Any Multi-Drug Resistant Organisms: None Reported Past Surgical History: Cardiac Ablation, Coronary Bypass/CABG, Orthopedic Surgery Additional Past Surgical History / Comment(s): "Had Aorta rebuilt in 2004", knee arthroscopy, right carpal tunnel release, 2 cardioversions Past Anesthesia/Blood Transfusion Reactions: No Reported Reaction Past Psychological History: Anxiety Smoking Status: Never smoker Past Alcohol Use History: None Reported Past Drug Use History: None Reported - Past Family History Mother History Unknown: Yes Family Medical History: No Reported History Medications and Allergies Home Medications Medication Instructions Recorded Confirmed Type Atorvastatin [Lipitor] 20 mg PO HS 12/22/18 09/30/23 History Multivitamins, Thera [Multivitamin 1 tab PO DAILY 12/22/18 09/30/23 History (formulary)] PARoxetine HCL [Paxil] 40 mg PO DAILY 12/22/18 09/30/23 History Terazosin [Hytrin] 5 mg PO HS 12/22/18 09/30/23 History Triamterene-Hctz 37.5-25Mg 1 cap PO DAILY 12/22/18 09/30/23 History [Dyazide 37.5-25 Capsule] lisinopriL 20 mg PO BID 12/22/18 09/30/23 History Ferrous Sulfate [Iron (65 MG 325 mg PO DAILY 05/15/21 09/30/23 History Elemental)] Cholecalciferol [Vitamin D3 (10 10 mcg PO DAILY 03/18/22 09/30/23 History Mcg = 400 Iu)] Potassium Chloride ER [K-Dur 10] 20 meq PO BID 03/18/22 09/30/23 History Rivaroxaban [Xarelto] 20 mg PO W/SUPPER 03/18/22 09/30/23 History Metoprolol Succinate (ER) [Toprol 75 mg PO DAILY 05/27/23 09/30/23 History XL] Furosemide [Lasix] 20 mg PO DAILY 09/30/23 09/30/23 History Metoprolol Succinate (ER) [Toprol 50 mg PO HS 09/30/23 09/30/23 History Xl] hydrALAZINE HCL [Apresoline] 100 mg PO TID 09/30/23 09/30/23 History Allergies Allergy/AdvReac Type Severity Reaction Status Date / Time No Known Allergies Allergy Verified 09/30/23 17:22 Physical Exam Vitals: Vital Signs Temp Pulse Pulse Resp BP BP BP 10/02/23 12:30 61 14 150/102 10/02/23 12:00 64 68 12 134/88 10/02/23 11:30 63 16 117/73 10/02/23 11:00 54 L 9 L 120/78 10/02/23 10:30 51 L 13 130/109 10/02/23 10:00 61 13 137/105 10/02/23 09:30 64 15 142/90 10/02/23 09:00 67 21 140/102 10/02/23 08:30 66 17 140/98 10/02/23 08:00 59 L 66 12 131/85 10/02/23 07:30 66 14 156/119 10/02/23 07:00 71 18 155/105 10/02/23 06:30 76 19 123/75 10/02/23 06:00 58 L 13 142/84 10/02/23 05:30 62 16 128/88 10/02/23 05:00 53 L 14 137/83 10/02/23 04:30 51 L 13 130/80 10/02/23 04:00 98.1 F 62 13 124/80 10/02/23 03:30 53 L 24 126/72 10/02/23 03:00 67 11 L 140/78 10/02/23 02:30 61 17 148/81 10/02/23 02:00 73 25 H 143/87 10/02/23 01:30 72 32 H 142/103 10/02/23 01:00 72 11 L 154/87 10/02/23 00:30 78 7 L 161/102 10/02/23 00:00 98.3 F 76 26 H 147/97 10/01/23 23:30 82 28 H 10/01/23 23:00 76 28 H 171/112 10/01/23 22:56 17 10/01/23 20:00 98.6 F 70 16 155/83 10/01/23 15:54 97.6 F 64 17 130/77 10/01/23 15:45 64 16 10/01/23 13:40 78 20 Pulse Ox 10/02/23 12:30 10/02/23 12:00 97 10/02/23 11:30 98 10/02/23 11:00 99 10/02/23 10:30 100 10/02/23 10:00 97 10/02/23 09:30 98 10/02/23 09:00 94 L 10/02/23 08:30 98 10/02/23 08:00 100 10/02/23 07:30 100 10/02/23 07:00 10/02/23 06:30 10/02/23 06:00 97 10/02/23 05:30 97 10/02/23 05:00 97 10/02/23 04:30 92 L 10/02/23 04:00 94 L 10/02/23 03:30 95 10/02/23 03:00 93 L 10/02/23 02:30 96 10/02/23 02:00 94 L 10/02/23 01:30 95 10/02/23 01:00 96 10/02/23 00:30 98 10/02/23 00:00 99 10/01/23 23:30 10/01/23 23:00 10/01/23 22:56 10/01/23 20:00 98 10/01/23 15:54 100 10/01/23 15:45 10/01/23 13:40 Intake and Output 10/01/23 10/02/23 10/02/23 22:59 06:59 14:59 Intake Total 0 125 500 Output Total 800 0360 1400 Balance -573 -3758 -900 Intake: Intake, IV Titration 125 500 Amount Dextrose 5% in Water 1, 300 000 ml @ 150 mls/hr IV . Q6H40M [facility] Rx#:[id number] Magnesium Sulfate-D5w Pmx 100 1 gm In Dextrose/Water 1 100ml.bag @ 100 mls/hr IVPB ONCE [facility] Rx#: [id number] Sodium Chloride 3%( 125 0 Hypertonic) 500 ml @ 25 mls/hr IV .Q20H [facility] Rx#: [id number] Sodium Ferric Gluconat- 100 Sucrose 125 mg In Sodium Chloride 0.9% 100 ml @ 100 mls/hr IVPB DAILY [facility] Rx#:[id number] Oral 0 Output: Urine 800 4420 1400 Other: Voiding Method Urinal Indwelling Catheter Indwelling Catheter Weight 109.4 kg 109.4 kg GENERAL: Revealed a 62-year-old white male, marfanoid features EYES: Pupils equal. Conjunctiva khris l. HEENT: External appearance of nose and ears normal, oral cavity grossly normal. NECK: JVD not raised; masses not palpable. HEART: Normal S1-S2, 2/6 systolic murmur throughout the precordium. LUNGS: Diminished breath sound bilaterally no rhonchi no wheezes ABDOMEN: Soft, nontender, liver spleen not palpable, no masses palpable. PSYCH: Able to answer simple questions a l. MUSCULOSKELETAL: Marfanoid features otherwise negative NEUROLOGICAL: Patient is extremely weak, lethargic, arousable follows simple instructions but quite weak and lethargic LYMPHATICS: No neck masses Results - Laboratory Findings CBC and BMP: 10/02/23 04:28 10/02/23 11:34 ABG ABG pH 7.47 (7.35-7.45) H 10/01/23 22:59 ABG pCO2 28 mmHg (35-45) L 10/01/23 22:59 ABG pO2 67 mmHg (83-108) L 10/01/23 22:59 ABG O2 Saturation 95.0 % (94-97) 10/01/23 22:59 Abnormal lab findings: Abnormal Labs 09/30/23 09/30/23 09/30/23 15:07 15:07 16:19 RBC 2.78 L Hgb 6.8 L* Hct 20.9 L MCV 75.4 L MCH 24.5 L RDW 16.4 H Lymphocytes # 0.4 L ABG pH ABG pCO2 ABG pO2 Sodium 116 L* Potassium Chloride 86 L Carbon Dioxide 20 L BUN 21 H Glucose 120 H POC Glucose (mg/dL) Osmolality Calcium Iron 32 L % Saturation 7.82 L Total Bilirubin 1.6 H Unconjugated Bilirubin 1.2 H Delta Bilirubin 0.4 H Total Protein Folate Urine Protein Urine Blood Urine RBC Urine Mucus Crossmatch 09/30/23 09/30/23 09/30/23 16:19 16:50 19:27 RBC Hgb Hct MCV MCH RDW Lymphocytes # ABG pH ABG pCO2 ABG pO2 Sodium Potassium Chloride Carbon Dioxide BUN Glucose POC Glucose (mg/dL) Osmolality Calcium Iron % Saturation Total Bilirubin Unconjugated Bilirubin Delta Bilirubin Total Protein Folate 34.60 H Urine Protein Trace H Urine Blood Moderate H Urine RBC 169 H Urine Mucus Rare H Crossmatch See Detail 10/01/23 10/01/23 10/01/23 09:47 09:47 22:15 RBC 2.95 L 2.92 L Hgb 7.3 L 7.2 L Hct 23.2 L 22.9 L MCV 78.4 L 78.4 L MCH 24.7 L 24.8 L RDW 16.6 H 16.6 H Lymphocytes # 0.4 L 0.6 L ABG pH ABG pCO2 ABG pO2 Sodium 115 L* Potassium 3.2 L Chloride 84 L Carbon Dioxide 19 L BUN Glucose 103 H POC Glucose (mg/dL) Osmolality Calcium Iron % Saturation Total Bilirubin 1.8 H Unconjugated Bilirubin Delta Bilirubin Total Protein Folate Urine Protein Urine Blood Urine RBC Urine Mucus Crossmatch 10/01/23 10/01/23 10/01/23 22:15 22:59 23:00 RBC Hgb Hct MCV MCH RDW Lymphocytes # ABG pH 7.47 H ABG pCO2 28 L ABG pO2 67 L Sodium 117 L* Potassium 3.4 L Chloride 86 L Carbon Dioxide BUN Glucose POC Glucose (mg/dL) 131 H Osmolality Calcium 7.9 L Iron % Saturation Total Bilirubin Unconjugated Bilirubin Delta Bilirubin Total Protein 6.2 L Folate Urine Protein Urine Blood Urine RBC Urine Mucus Crossmatch 10/02/23 10/02/23 10/02/23 01:47 04:11 04:11 RBC Hgb Hct MCV MCH RDW Lymphocytes # ABG pH ABG pCO2 ABG pO2 Sodium 118 L* 120 L 121 L Potassium 3.3 L Chloride 94 L Carbon Dioxide BUN Glucose POC Glucose (mg/dL) Osmolality 255 L Calcium 7.8 L Iron % Saturation Total Bilirubin Unconjugated Bilirubin Delta Bilirubin Total Protein Folate Urine Protein Urine Blood Urine RBC Urine Mucus Crossmatch 10/02/23 10/02/23 10/02/23 04:28 07:46 11:34 RBC 2.71 L Hgb 7.0 L Hct 21.3 L MCV 78.5 L MCH RDW 16.3 H Lymphocytes # ABG pH ABG pCO2 ABG pO2 Sodium 126 L 127 L Potassium 3.3 L Chloride 96 L Carbon Dioxide 21 L BUN Glucose POC Glucose (mg/dL) Osmolality Calcium 8.1 L Iron % Saturation Total Bilirubin Unconjugated Bilirubin Delta Bilirubin Total Protein Folate Urine Protein Urine Blood Urine RBC Urine Mucus Crossmatch - Diagnostic Findings Chest x-ray: image reviewed (As noted in HPI) Assessment and Plan Assessment: Impression: Acute hypovolemic hyponatremia, likely secondary to nausea vomiting and diuretics Acute hypokalemia from diuretics and dehydration History of Marfan syndrome Liver cirrhosis, possible liver mass this needs to be further addressed possibly consider liver biopsy Anemia exact etiology is not clear Acute metabolic enceph seen secondary to electrolyte imbalance/hyponatremia Unexplained weight loss for the last few months History of depression Dyslipidemia History of ascending aortic graft for aortic aneurysm. Recommendation:: Continue to monitor in the ICU Continue present supportive care measures Hyponatremia is being addressed by nephrology on the case. Cautious hydration and slow correction of hyponatremia Will eventually need further workup on the liver possible liver biopsy Check serum cortisol level Will continue to follow Time with Patient: Less than 30
--- NOTE | 2023-10-02 13:08 | P.PN ---
Progress Note - Text Progress Note Date: 10/02/23 Chief Complaint: Multiple symptom This is a pleasant 62-year-old patient, is a resident at [facility]. Follows with Dr. Bauer. Chronic stable medical condition include atrial fibrillation, hypertension, hyperlipidemia, Marfan syndrome with a mental age of 81-year-old. History of coronary ablation. For atrial fibrillation. Thoracic aneurysm surgery for ascending aorta graft in 2004 Patient's sister Kasey is the legal guardian. Her was the bedside takes the patient all his appointment. About 2 months patient is been having dry heaves. More so in the since yesterday. Has been losing weight has lost about 23 pounds in the last 3 to 4 months. Diet. Does get short of breath. Sleeps with 1 pillow at night. Mild edema. September 30: Patient changed to a softer diet. Had 100% of his lunch. Abdominal ultrasound shows hypoechoic area in the right inferior lobe of liver 4.5 x 4 x 3.9 cm-described as a solid lesion.. Discussed with [id number] at the bedside. Sodium remains at 115. Increase IV fluids to 100 cc an hour. Add s alt tablet. Pending serum osmolality. Patient's had decreased oral intake at home. Patient also has iron deficiency anemia. Will transfuse IV iron. October 01: Yesterday evening patient had some mental status changes. Patient moved to the ICU. Patient's sister and [id number] at the bedside. Nephrology was consulted. Received DDAVP 1 mcg today. Sinus rhythm. Answering simple questions. Lengthy talk with the sister and [id number] at the bedside. Patient made DNR. Mass on the right lobe of liver discussed. Some improvement in sodium. Patient probably had acute delirium overnight. Active Medications Atorvastatin Calcium (Atorvastatin 20 Mg Tab) 20 mg PO HS [facility] Last Admin: 10/01/23 21:46 Dose: 20 mg Doxazosin Mesylate (Doxazosin 4 Mg Tab) 4 mg PO [facility] Last Admin: 10/01/23 21:46 Dose: 4 mg Ferric Sodium Gluconate 125 mg (/ Sodium Chloride) 110 mls @ 100 mls/hr IVPB DAILY [facility] Stop: 10/03/23 10:05 Last Admin: 10/02/23 08:24 Dose: 100 mls/hr Dextrose/Water (Dextrose 5%-Water Iv Soln) 1,000 mls @ 150 mls/hr IV .Q6H40M [facility] Last Admin: 10/02/23 10:40 Dose: 150 mls/hr Metoprolol Succinate (Metoprolol Succinate (Er) 50 Mg Tab.Er.24h) 50 mg PO HS [facility] Last Admin: 10/01/23 21:46 Dose: 50 mg Metoprolol Succinate (Metoprolol Succinate (Er) 25 Mg Tab.Er.24h) 75 mg PO DAILY [facility] Last Admin: 10/02/23 09:22 Dose: 75 mg Miscellaneous Information (Potassium Replacement Protocol 1 Each Misc) 1 each MISCELLANE DAILY PRN; Protocol PRN Reason: Per Protocol Miscellaneous Information (Magnesium Replacement Protocol 1 Each Misc) 1 each MISCELLANE DAILY PRN; Protocol PRN Reason: Per Protocol Multivitamins (Multivitamins, Thera 1 Each Tab) 1 each PO DAILY [facility] Last Admin: 10/02/23 08:24 Dose: 1 each Naloxone HCl (Naloxone 0.4 Mg/Ml 1 Ml Vial) 0.2 mg IV Q2M PRN PRN Reason: Opioid Reversal Ondansetron HCl (Ondansetron 4 Mg/2 Ml Vial) 4 mg IVP Q8HR PRN PRN Reason: Nausea And Vomiting Paroxetine HCl (Paroxetine 20 Mg Tab) 40 mg PO DAILY [facility] Last Admin: 10/02/23 08:24 Dose: 40 mg Rivaroxaban (Rivaroxaban 20 Mg Tab) 20 mg PO W/SUPPER [facility]; Protocol Last Admin: 10/01/23 17:09 Dose: 20 mg Physical examination: VITAL SIGNS: Afebrile, 51, 13, 130 x 109, 100% on 2 L GENERAL: Tired, reclining in bed. Marfanoid features EYES: Pupils equal. Conjunctiva pale HEENT: External appearance of nose and ears normal, oral cavity grossly normal. NECK: JVD not raised; masses not palpable. HEART: Heart sounds are regular l; no edema. LUNGS: Respiratory rate normal; clear to auscultation. ABDOMEN: Soft, nontender, liver spleen not palpable, no masses palpable. PSYCH: Able to answer simple questions MUSCULOSKELETAL:No Clubbing/cyanosis;muscles-grossly intact Investigation Alpha-fetoprotein less than 3 CEA less than 2 October 01: White count 5.1 hemoglobin 7 platelets 219 sodium 126 potassium 3.3 creatinine 0.94. Serum osmolality 255 September 30: White count 5.5 hemoglobin 7.3 platelets 293 sodium 115 potassium 3.2 BUN 18 creatinine 1.15 Liver ultrasound: Hypoechoic area/solid in the right inferior lobe measuring 4.5 x 4 x 3.9 cm. Iron 32 TIBC 409% saturation 7.82 ferritin 91.1 total bilirubin 1.8 Vitamin B12 524 folate 34.6 September 29: White count 4.4 hemoglobin 6.8 platelets 273 sodium 116 potassium 3.5 BUN 21 creatinine 1.16 total bilirubin 1.6 EKG tracing personally reviewed by me-atrial fibrillation. PVCs. CT scan abdomen pelvis abnormal liver on CT scan t: Liver suggestive of cirrhosis/hepatitis Assessment plan: -Severe hyponatremia. Suspect hypoosmolar: Slow to respond Fluid restriction 1500 cc a day. Salt tablets. Avoid free fluid DDAVP 1 dose given -Acute delirium overnight positive from low sodium: New diagnosis -Weight loss loss of appetite for last 3 to 4 months. Patient lost about [address] scan abdomen pelvis nonspecific AFP, CEA.: Both negative -Abnormal liver morphology on the CT scan: Ultrasound showing 4.5 x 4 x 3.9 cm solid tumor. For further outpatient workup -Marfan syndrome. Mental age of 9-year-old -Iron deficiency anemia: New diagnosis IV Ferrlecit -Persistent atrial fibrillation History of cardiac ablation. Toprol-XL. Xarelto. -Ascending aortic arch graft from warfarin in 2004 -BPH Cardura -Hyperlipidemia Lipitor -Anxiety Paxil -Legal guardian, sister: Mallika Sierra -DNR Patient currently in the ICU. Received a dose of DDAVP. Discussed with family at the bedside Advance care planning [October 02, 2023] Patient's sister did say that patient's had multiple treatments in the past. A lot of running around with medical issues. She understands patient's prognosis is somewhat guarded especially in view of this liver mass turns out to be cancer. They understand patient will have to go outside this current place for further investigation for the same. This point the sister who is the POA decided to make the patient DNR. About 25 minutes was spent for this. 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 History of Any Multi-Drug Resistant Organisms: None Reported Past Surgical History: Cardiac Ablation, Coronary Bypass/CABG, Orthopedic Surgery Additional Past Surgical History / Comment(s): "Had Aorta rebuilt in 2004", knee arthroscopy, right carpal tunnel release, 2 cardioversions Past Anesthesia/Blood Transfusion Reactions: No Reported Reaction Past Psychological History: Anxiety Smoking Status: Never smoker Past Alcohol Use History: None Reported Past Drug Use History: None Reported
--- NOTE | 2023-10-03 01:56 | EEG ---
ELECTROENCEPHALOGRAM REPORT CLINICAL HISTORY: This is a 62-year-old gentleman with reported altered mental status. The video EEG is obtained to evaluate for seizure epileptiform activity. RELEVANT MEDICATION: Not on any antiepileptic drugs per the instructional technology facilitator report. DESCRIPTION: Wakefulness and drowsiness are obtained. During awake state, the background is somewhat hard to ascertain because of myogenic artifact, but it appears 10 to 11 hertz activity. At times, the background consists of diffuse nonrhythmic polymorphic delta activity. There is no physiological stage 2 sleep architecture. There is no focal slowing. There is mild to moderate myogenic artifact. Interictal and ictal is none. ACTIVATION PROCEDURE: Photic stimulation did not evoke a posterior driving response. There is no abnormality during the photic stimulation. Hyperventilation is not performed. CLINICAL INTERPRETATION: This is an abnormal routine EEG. The background slowing is suggestive of mild encephalopathy. There is no focal slowing, epileptiform discharge, or seizure on the EEG. Clinical correlation is recommended. DIANA / EMANUEL: [id number] / MTDD
[2023-10-03 05:55] LABS: Anisocytosis Slight; HCT 22.2 % (39.0-53.0); Hypochromasia Marked; MCH 25.4 pg (25.0-35.0); MCHC 31.3 g/dL (31.0-37.0); Mean Platelet Volume 8.6; Platelet Count 211 k/uL (150-450); RBC 2.74 m/uL (4.30-5.90); RDW 16.6 % (11.5-15.5); WBC 4.6 k/uL (3.8-10.6)
[2023-10-03 06:38] LABS: African American GFR (CKD) >90 (>60 ml/min/1.73 sqM); Anion Gap 6 mmol/L; Blood Urea Nitrogen 12 mg/dL (9-20); Calcium 7.8 mg/dL (8.4-10.2); Carbon Dioxide 21 mmol/L (22-30); Chloride 97 mmol/L (98-107); Glucose 82 mg/dL (74-99); Magnesium 1.8 mg/dL (1.6-2.3); Non-African American GFR(CKD) >90 (>60 ml/min/1.73 sqM); Potassium 3.8 mmol/L (3.5-5.1); Sodium 124 mmol/L (137-145)
[2023-10-03] MEDS: MAGNESIUM SULFATE-D5W PMX 1 GM in DEXTROSE/WATER 1 100ML.BAG IVPB ONE (07:04)
[2023-10-03] MEDS: POTASSIUM CHLORIDE ER 20 MEQ TAB.ER PO SCH (09:09)
--- NOTE | 2023-10-03 09:11 | P.PN ---
Progress Note - Text Progress Note Date: 10/03/23 Chief Complaint: Multiple symptom This is a pleasant 62-year-old patient, is a resident at [facility]. Follows with Dr. Bauer. Chronic stable medical condition include atrial fibrillation, hypertension, hyperlipidemia, Marfan syndrome with a mental age of 81-year-old. History of coronary ablation. For atrial fibrillation. Thoracic aneurysm surgery for ascending aorta graft in 2004 Patient's sister Kasey is the legal guardian. Her was the bedside takes the patient all his appointment. About 2 months patient is been having dry heaves. More so in the since yesterday. Has been losing weight has lost about 23 pounds in the last 3 to 4 months. Diet. Does get short of breath. Sleeps with 1 pillow at night. Mild edema. September 30: Patient changed to a softer diet. Had 100% of his lunch. Abdominal ultrasound shows hypoechoic area in the right inferior lobe of liver 4.5 x 4 x 3.9 cm-described as a solid lesion.. Discussed with [id number]-[id number]-rki at the bedside. Sodium remains at 115. Increase IV fluids to 100 cc an hour. Add s alt tablet. Pending serum osmolality. Patient's had decreased oral intake at home. Patient also has iron deficiency anemia. Will transfuse IV iron. October 01: Yesterday evening patient had some mental status changes. Patient moved to the ICU. Patient's sister and [id number] at the bedside. Nephrology was consulted. Received DDAVP 1 mcg today. Sinus rhythm. Answering simple questions. Lengthy talk with the sister and [id number] at the bedside. Patient made DNR. Mass on the right lobe of liver discussed. Some improvement in sodium. Patient probably had acute delirium overnight. October 02: ICU. Sitting up in a chair. Tolerating diet well. Sodium 124. Remains on fluid restriction. IV Ferrlecit. Active Medications Atorvastatin Calcium (Atorvastatin 20 Mg Tab) 20 mg PO HS [facility] Last Admin: 10/02/23 21:26 Dose: 20 mg Doxazosin Mesylate (Doxazosin 4 Mg Tab) 4 mg PO HS [facility] Last Admin: 10/02/23 21:26 Dose: 4 mg Ferric Sodium Gluconate 125 mg (/ Sodium Chloride) 110 mls @ 100 mls/hr IVPB DAILY [facility] Stop: 10/03/23 10:05 Last Admin: 10/02/23 08:24 Dose: 100 mls/hr Metoprolol Succinate (Metoprolol Succinate (Er) 50 Mg Tab.Er.24h) 50 mg PO HS [facility] Last Admin: 10/02/23 21:26 Dose: 50 mg Metoprolol Succinate (Metoprolol Succinate (Er) 25 Mg Tab.Er.24h) 75 mg PO DAILY [facility] Last Admin: 10/02/23 09:22 Dose: 75 mg Miscellaneous Information (Potassium Replacement Protocol 1 Each Misc) 1 each MISCELLANE DAILY PRN; Protocol PRN Reason: Per Protocol Miscellaneous Information (Magnesium Replacement Protocol 1 Each Misc) 1 each MISCELLANE DAILY PRN; Protocol PRN Reason: Per Protocol Miscellaneous Information (Potassium Replacement Protocol 1 Each Misc) 1 each MISCELLANE DAILY PRN; Protocol PRN Reason: Per Protocol Multivitamins (Multivitamins, Thera 1 Each Tab) 1 each PO DAILY [facility] Last Admin: 10/02/23 08:24 Dose: 1 each Naloxone HCl (Naloxone 0.4 Mg/Ml 1 Ml Vial) 0.2 mg IV Q2M PRN PRN Reason: Opioid Reversal Ondansetron HCl (Ondansetron 4 Mg/2 Ml Vial) 4 mg IVP Q8HR PRN PRN Reason: Nausea And Vomiting Paroxetine HCl (Paroxetine 20 Mg Tab) 40 mg PO DAILY [facility] Last Admin: 10/02/23 08:24 Dose: 40 mg Rivaroxaban (Rivaroxaban 20 Mg Tab) 20 mg PO W/SUPPER [facility]; Protocol Last Admin: 10/02/23 17:16 Dose: 20 mg Physical examination: VITAL SIGNS: 97.9, 64, 16, 124 x 78, 99% room air GENERAL: Up in a recliner comfortable. Marfanoid features EYES: Pupils equal. Conjunctiva pale HEENT: External appearance of nose and ears normal, oral cavity grossly normal. NECK: JVD not raised; masses not palpable. HEART: Heart sounds are regular l; no edema. LUNGS: Respiratory rate normal; clear to auscultation. ABDOMEN: Soft, nontender, liver spleen not palpable, no masses palpable. PSYCH: Able to answer simple questions MUSCULOSKELETAL:No Clubbing/cyanosis;muscles-grossly intact Investigation October 02: White count 4.6 hemoglobin 7 potassium 3.8 creatinine 0.84 TSH 3.3 Alpha-fetoprotein less than 3 CEA less than 2 October 01: White count 5.1 hemoglobin 7 platelets 219 sodium 126 potassium 3.3 creatinine 0.94. Serum osmolality 255 September 30: White count 5.5 hemoglobin 7.3 platelets 293 sodium 115 potassium 3.2 BUN 18 creatinine 1.15 Liver ultrasound: Hypoechoic area/solid in the right inferior lobe measuring 4.5 x 4 x 3.9 cm. Iron 32 TIBC 409% saturation 7.82 ferritin 91.1 total bilirubin 1.8 Vitamin B12 524 folate 34.6 September 29: White count 4.4 hemoglobin 6.8 platelets 273 sodium 116 potassium 3.5 BUN 21 creatinine 1.16 total bilirubin 1.6 EKG tracing personally reviewed by me-atrial fibrillation. PVCs. CT scan abdomen pelvis abnormal liver on CT scan t: Liver suggestive of cirrhosis/hepatitis Assessment plan: -Severe hyponatremia. Suspect hypoosmolar: Slow to respond Fluid restriction 1500 cc a day. . Avoid free fluid DDAVP 1 dose given Being followed by nephrology -Acute delirium overnight positive from low sodium: Improved -Weight loss loss of appetite for last 3 to 4 months. Patient lost about [address] scan abdomen pelvis nonspecific AFP, CEA.: Both negative -Abnormal liver morphology on the CT scan: Ultrasound showing 4.5 x 4 x 3.9 cm solid tumor. For further outpatient workup -Marfan syndrome. Mental age of 9-year-old -Iron deficiency anemia: New diagnosis IV Ferrlecit -Persistent atrial fibrillation History of cardiac ablation. Toprol-XL. Xarelto. -Ascending aortic arch graft from warfarin in 2004 -BPH Cardura -Hyperlipidemia Lipitor -Anxiety Paxil -Legal guardian, sister: Mallika Sierra -DNR Advance care planning [October 02, 2023] Patient's sister did say that patient's had multiple treatments in the past. A lot of running around with medical issues. She understands patient's prognosis is somewhat guarded especially in view of this liver mass turns out to be cancer. They understand patient will have to go outside this current place for further investigation for the same. This point the sister who is the POA decided to make the patient DNR. About 25 minutes was spent for this. Continue with fluid restriction. Salt tablets if okay with nephrology. Other medications to continue. 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 History of Any Multi-Drug Resistant Organisms: None Reported Past Surgical History: Cardiac Ablation, Coronary Bypass/CABG, Orthopedic Surgery Additional Past Surgical History / Comment(s): "Had Aorta rebuilt in 2004", knee arthroscopy, right carpal tunnel release, 2 cardioversions Past Anesthesia/Blood Transfusion Reactions: No Reported Reaction Past Psychological History: Anxiety Smoking Status: Never smoker Past Alcohol Use History: None Reported Past Drug Use History: None Reported
--- NOTE | 2023-10-03 11:15 | P.PN ---
Subjective patient is seen for follow-up for hyponatremia. He is currently doing well. Denies any significant complaints. Status post D5W and DDAVP to avoid rapid increase in sodium. Sodium is 124 today. Currently off of all IV fluids. Objective - Vital Signs Vital signs: Vital Signs Temp 97.9 F 10/03/23 08:30 Pulse 64 10/03/23 09:00 Resp 16 10/03/23 09:00 BP 124/78 10/03/23 09:00 Pulse Ox 99 10/03/23 09:00 FiO2 Intake & Output 10/02/23 10/03/23 10/03/23 18:59 06:59 18:59 Intake Total 1300 90 690 Output Total 1974 1090 375 Balance -675 -1000 315 Weight 109.4 kg 104.4 kg Intake: IV 200 Magnesium Sulfate-D5w Pmx 100 1 gm In Dextrose/Water 1 100ml.bag @ 100 mls/hr IVPB ONCE ONE Rx#: [id number] Sodium Ferric Gluconat- 100 Sucrose 125 mg In Sodium Chloride 0.9% 100 ml @ 100 mls/hr IVPB DAILY [facility] Rx#:[id number] Intake, IV Titration 1300 Amount Dextrose 5% in Water 1, 1100 000 ml @ 200 mls/hr IV . Q5H [facility] Rx#:[id number] Magnesium Sulfate-D5w Pmx 100 1 gm In Dextrose/Water 1 100ml.bag @ 100 mls/hr IVPB ONCE ONE Rx#: [id number] Sodium Chloride 3%( 0 Hypertonic) 500 ml @ 25 mls/hr IV .Q20H ONE Rx#: [id number] Sodium Ferric Gluconat- 100 Sucrose 125 mg In Sodium Chloride 0.9% 100 ml @ 100 mls/hr IVPB DAILY [facility] Rx#:[id number] Oral 90 490 Output: Urine 1974 1090 375 Other: Voiding Method Indwelling Catheter Indwelling Catheter Indwelling Catheter - Exam patient is awake, comfortable, no acute distress. 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 grossly intact - Labs CBC & Chem 7: 10/03/23 05:14 10/03/23 05:14 Labs: Abnormal Lab Results - Last 24 Hours (Table) 10/01/23 10/02/23 10/02/23 Range/Units 09:47 04:11 11:34 RBC (4.30-5.90) m/uL Hgb (13.0-17.5) gm/dL Hct (39.0-53.0) % RDW (11.5-15.5) % Sodium 127 L (137-145) mmol/L Chloride (98-107) mmol/L Carbon Dioxide (22-30) mmol/L Osmolality 243 A* 255 L (275-295) mOsm/kg Calcium (8.4-10.2) mg/dL Urine Osmolality (400-1100) mOsm/kg Ur Random Sodium (40-220) mmol/L 10/02/23 10/02/23 10/02/23 Range/Units 11:46 11:46 13:04 RBC (4.30-5.90) m/uL Hgb (13.0-17.5) gm/dL Hct (39.0-53.0) % RDW (11.5-15.5) % Sodium 127 L (137-145) mmol/L Chloride (98-107) mmol/L Carbon Dioxide (22-30) mmol/L Osmolality (275-295) mOsm/kg Calcium (8.4-10.2) mg/dL Urine Osmolality 92 L (400-1100) mOsm/kg Ur Random Sodium <20 L (40-220) mmol/L 10/02/23 10/02/23 10/03/23 Range/Units 16:11 19:46 05:14 RBC (4.30-5.90) m/uL Hgb (13.0-17.5) gm/dL Hct (39.0-53.0) % RDW (11.5-15.5) % Sodium 125 L 124 L 124 L (137-145) mmol/L Chloride 97 L (98-107) mmol/L Carbon Dioxide 21 L (22-30) mmol/L Osmolality (275-295) mOsm/kg Calcium 7.8 L (8.4-10.2) mg/dL Urine Osmolality (400-1100) mOsm/kg Ur Random Sodium (40-220) mmol/L 10/03/23 Range/Units 05:14 RBC 2.74 L (4.30-5.90) m/uL Hgb 7.0 L (13.0-17.5) gm/dL Hct 22.2 L (39.0-53.0) % RDW 16.6 H (11.5-15.5) % Sodium (137-145) mmol/L Chloride (98-107) mmol/L Carbon Dioxide (22-30) mmol/L Osmolality (275-295) mOsm/kg Calcium (8.4-10.2) mg/dL Urine Osmolality (400-1100) mOsm/kg Ur Random Sodium (40-220) mmol/L Assessment and Plan Assessment: 1. Hypovolemic hyponatremia worsened with use of thiazide diuretics. Also component of poor solute intake. [place] status post D5W and DDAVP to avoid rapid increase in sodium. Currently sodium is at 124. 2. Hypokalemia from diuretics and poor intake 3. Strep Marfan syndrome 4. Acute blood loss anemia with no active bleeding noted.status post packed RBCs transfusion. hemoglobin stable at 7.0 Plan: recheck sodium this morning. Fluid restriction to 1500 ML encourage increased oral intake
--- NOTE | 2023-10-03 11:47 | P.PN ---
Subjective Progress Note Date: 10/03/23 Principal diagnosis: Acute hypovolemic hyponatremia This is a 62-year-old white male with history of multiple medical problems, patient is not a great historian, could not get much information from the patient himself, most of my information was obtained from the chart. Apparently the patient has been noticed to have nausea vomiting and drives heaves for the last 2 days. He was evaluated at urgent care, and he was noted to have abnormal labs and there was a concern about a 20 pound weight loss. Patient was sent to the emergency room with a chief complaint of nausea and vomiting, symptoms have been going on quite frequently for the last couple of months. Patient has poor oral intake, and he had multiple episodes of vomiting yesterday. No melena, no hematemesis, no bright red blood per rectum, no abdominal pain. Patient was noted to be quite fatigued. Workup in the ER showed low sodium of 116. Follow- up few hours later was 117. I was called about this patient yesterday because of his worsening overall clinical status, patient feels very weak, getting a bit almost obtunded, and unable to volunteer any adequate history. Considering his sodium being low, I recommended transfer to the ICU for 3% infusion, and I recommended nephrology consultation. Patient did receive 3% saline and this was stopped around 4 AM. Sodium level went as high as 126 at 746 this a.m. Patient also received a dose of DDAVP this morning, and he is on D5W to slow the correction of his hyponatremia. Looking back at the history, patient does have history of developmental delay, history of Marfan syndrome, history of thoracic aortic aneurysm. In addition to all of this the patient has been losing weight about 20 pound weight loss over the last few months, he was also taking diuretics in the form of Lasix and hydrochlorothiazide which are presently on hold. CT of abdomen and pelvis on this admission showed diffuse variable densities suggesting medical liver disease such as cirrhosis or hepatitis. Ultrasound of the liver showed heterogeneous hypoechoic area in the right inferior lobe of the liver measuring 4.5 x 4.0 x 3.9 cm. Chest x-ray showed no evidence of pulmonary mass, however did show cardiomegaly and mild pulmonary vascular congestion Patient was reevaluated today on 10/03/23, patient is doing well, his mentation is significantly improved, he is not as encephalopathic as he was when he came in. Sodium is up to 124 today, patient did receive D5W and received the DDAVP to avoid rapid correction of sodium this was given by nephrology. Patient is o ff IV fluids, asymptomatic, and I plan to transfer the patient out of the ICU to a regular medical floor. Hemoglobin today is low at 7.0, patient was admitted with a hemoglobin of 6.8, has been ranging around 7 all along since admission patient did receive a unit of packed RBCs, no actual active bleeding noted, patient has been on Xarelto Objective - Vital Signs Vital signs: Vital Signs Temp 97.9 F 10/03/23 08:30 Pulse 64 10/03/23 09:00 Resp 16 10/03/23 09:00 BP 124/78 10/03/23 09:00 Pulse Ox 99 10/03/23 09:00 FiO2 Intake & Output 10/02/23 10/03/23 10/03/23 18:59 06:59 18:59 Intake Total 1300 90 690 Output Total 1974 1090 725 Balance -675 -1000 -35 Weight 109.4 kg 104.4 kg Intake: IV 200 Magnesium Sulfate-D5w Pmx 100 1 gm In Dextrose/Water 1 100ml.bag @ 100 mls/hr IVPB ONCE ONE Rx#: [id number] Sodium Ferric Gluconat- 100 Sucrose 125 mg In Sodium Chloride 0.9% 100 ml @ 100 mls/hr IVPB DAILY [facility] Rx#:[id number] Intake, IV Titration 1300 Amount Dextrose 5% in Water 1, 1100 000 ml @ 200 mls/hr IV . Q5H [facility] Rx#:[id number] Magnesium Sulfate-D5w Pmx 100 1 gm In Dextrose/Water 1 100ml.bag @ 100 mls/hr IVPB ONCE ONE Rx#: [id number] Sodium Chloride 3%( 0 Hypertonic) 500 ml @ 25 mls/hr IV .Q20H ONE Rx#: [id number] Sodium Ferric Gluconat- 100 Sucrose 125 mg In Sodium Chloride 0.9% 100 ml @ 100 mls/hr IVPB DAILY [facility] Rx#:[id number] Oral 90 490 Output: Urine 1974 1090 725 Other: Voiding Method Indwelling Catheter Indwelling Catheter Indwelling Catheter - Exam GENERAL: Revealed a 62-year-old white male, marfanoid features EYES: Pupils equal. Conjunctiva khris l. HEENT: External appearance of nose and ears normal, oral cavity grossly normal. NECK: JVD not raised; masses not palpable. HEART: Normal S1-S2, 2/6 systolic murmur throughout the precordium. LUNGS: Diminished breath sound bilaterally no rhonchi no wheezes ABDOMEN: Soft, nontender, liver spleen not palpable, no masses palpable. PSYCH: Able to answer simple questions a l. MUSCULOSKELETAL: Marfanoid features otherwise negative NEUROLOGICAL: Alert and oriented x 3 no gross focal neurologic deficits, patient is much more alert today compared to yesterday LYMPHATICS: No neck masses - Labs CBC & Chem 7: 10/03/23 05:14 10/03/23 05:14 Labs: Abnormal Lab Results - Last 24 Hours (Table) 10/01/23 10/02/23 10/02/23 Range/Units 09:47 11:34 11:46 RBC (4.30-5.90) m/uL Hgb (13.0-17.5) gm/dL Hct (39.0-53.0) % RDW (11.5-15.5) % Sodium 127 L (137-145) mmol/L Chloride (98-107) mmol/L Carbon Dioxide (22-30) mmol/L Osmolality 243 A* (275-295) mOsm/kg Calcium (8.4-10.2) mg/dL Urine Osmolality 92 L (400-1100) mOsm/kg Ur Random Sodium (40-220) mmol/L 10/02/23 10/02/23 10/02/23 Range/Units 11:46 13:04 16:11 RBC (4.30-5.90) m/uL Hgb (13.0-17.5) gm/dL Hct (39.0-53.0) % RDW (11.5-15.5) % Sodium 127 L 125 L (137-145) mmol/L Chloride (98-107) mmol/L Carbon Dioxide (22-30) mmol/L Osmolality (275-295) mOsm/kg Calcium (8.4-10.2) mg/dL Urine Osmolality (400-1100) mOsm/kg Ur Random Sodium <20 L (40-220) mmol/L 10/02/23 10/03/23 10/03/23 Range/Units 19:46 05:14 05:14 RBC 2.74 L (4.30-5.90) m/uL Hgb 7.0 L (13.0-17.5) gm/dL Hct 22.2 L (39.0-53.0) % RDW 16.6 H (11.5-15.5) % Sodium 124 L 124 L (137-145) mmol/L Chloride 97 L (98-107) mmol/L Carbon Dioxide 21 L (22-30) mmol/L Osmolality (275-295) mOsm/kg Calcium 7.8 L (8.4-10.2) mg/dL Urine Osmolality (400-1100) mOsm/kg Ur Random Sodium (40-220) mmol/L Assessment and Plan Assessment: Impression: Acute hypovolemic hyponatremia, likely secondary to nausea vomiting and diureti cs Acute hypokalemia from diuretics and dehydration History of Marfan syndrome Liver cirrhosis, possible liver mass this needs to be further addressed possibly consider liver biopsy Anemia exact etiology is not clear Acute metabolic enceph seen secondary to electrolyte imbalance/hyponatremia Unexplained weight loss for the last few months History of depression Dyslipidemia History of ascending aortic graft for aortic aneurysm. Recommendation:: Transfer patient out of the ICU to regular medical floor Continue present supportive care measures Continue slow correction of hyponatremia as per nephrology Further workup for his liver mass should be addressed on outpatient basis or possibly during this admission once his hyponatremia has resolved Cortisol level was normal Will continue to follow Time with Patient: Less than 30
[2023-10-03 12:31] LABS: ALT 17 U/L (4-49); AST 17 U/L (17-59); African American GFR (CKD) >90 (>60 ml/min/1.73 sqM); Albumin 3.1 g/dL (3.5-5.0); Alkaline Phosphatase 70 U/L (38-126); Anion Gap 7 mmol/L; Blood Urea Nitrogen 11 mg/dL (9-20); Calcium 8.1 mg/dL (8.4-10.2); Carbon Dioxide 21 mmol/L (22-30); Chloride 96 mmol/L (98-107); Glucose 89 mg/dL (74-99); Non-African American GFR(CKD) >90 (>60 ml/min/1.73 sqM); Potassium 4.3 mmol/L (3.5-5.1); Sodium 124 mmol/L (137-145); Total Protein 5.9 g/dL (6.3-8.2)
[2023-10-03] MEDS: SODIUM CHLORIDE 0.9% 1,000 ML IV SCH (15:58)
[2023-10-04 09:44] LABS: Blood Urea Nitrogen 10.9 mg/dL (9.0-27.0); Calcium 8.4 mg/dL (8.7-10.3); Chloride 105 mmol/L (96-109); Glucose 84 mg/dL (70-110); Sodium 137 mmol/L (135-145)
--- NOTE | 2023-10-04 11:42 | P.PN ---
Subjective Progress Note Date: 10/04/23 This is a 62-year-old white male with history of multiple medical problems, patient is not a great historian, could not get much information from the patient himself, most of my information was obtained from the chart. Apparently the patient has been noticed to have nausea vomiting and drives heaves for the last 2 days. He was evaluated at urgent care, and he was noted to have abnormal labs and there was a concern about a 20 pound weight loss. Patient was sent to the emergency room with a chief complaint of nausea and vomiting, symptoms have been going on quite frequently for the last couple of months. Patient has poor oral intake, and he had multiple episodes of vomiting yesterday. No melena, no hematemesis, no bright red blood per rectum, no abdominal pain. Patient was noted to be quite fatigued. Workup in the ER showed low sodium of 116. Follow- up few hours later was 117. I was called about this patient yesterday because of his worsening overall clinical status, patient feels very weak, getting a bit almost obtunded, and unable to volunteer any adequate history. Considering his sodium being low, I recommended transfer to the ICU for 3% infusion, and I recommended nephrology consultation. Patient did receive 3% saline and this was stopped around 4 AM. Sodium level went as high as 126 at 746 this a.m. Patient also received a dose of DDAVP this morning, and he is on D5W to slow the correction of his hyponatremia. Looking back at the history, patient does have history of developmental delay, history of Marfan syndrome, history of thoracic aortic aneurysm. In addition to all of this the patient has been losing weight about 20 pound weight loss over the last few months, he was also taking diuretics in the form of Lasix and hydrochlorothiazide which are presently on hold. CT of abdomen and pelvis on this admission showed diffuse variable densities suggesting medical liver disease such as cirrhosis or hepatitis. Ultrasound of the liver showed heterogeneous hypoechoic area in the right inferior lobe of the liver measuring 4.5 x 4.0 x 3.9 cm. Chest x-ray showed no evidence of pulmonary mass, however did show cardiomegaly and mild pulmonary vascular congestion Patient was reevaluated today on 10/03/23, patient is doing well, his mentation is significantly improved, he is not as encephalopathic as he was when he came in. Sodium is up to 124 today, patient did receive D5W and received the DDAVP to avoid rapid correction of sodium this was given by nephrology. Patient is off IV fluids, asymptomatic, and I plan to transfer the patient out of the ICU to a regular medical floor. Hemoglobin today is low at 7.0, patient was admitted with a hemoglobin of 6.8, has been ranging around 7 all along since admission patient did receive a unit of packed RBCs, no actual active bleeding noted, patient has been on Xarelto The patient is seen today October 04, 2023 in follow-up on the regular medical floor. He is currently resting comfortably in bed. Awake and alert in no acute distress. Maintaining good O2 saturations in the 90s on room air. He remains on normal saline at 75 MLS per hour. Current sodium is 137. Potassium 4.0. Bicarb 22. BUN 11. Creatinine 1.0. He has received 1 unit of packed red blood cells this admission. Last hemoglobin 7.0. He is anticoagulated with Xarelto. Objective - Vital Signs Vital signs: Vital Signs Temp 98 F 10/04/23 06:49 Pulse 89 10/04/23 06:49 Resp 16 10/04/23 08:00 BP 155/78 10/04/23 06:49 Pulse Ox 99 10/04/23 06:49 FiO2 Intake & Output 10/03/23 10/04/23 10/04/23 18:59 06:59 18:59 Intake Total 1170 Output Total 1625 3600 700 Balance -455 -3600 -700 Intake: IV 200 Magnesium Sulfate-D5w Pmx 100 1 gm In Dextrose/Water 1 100ml.bag @ 100 mls/hr IVPB ONCE ONE Rx#: [id number] Sodium Ferric Gluconat- 100 Sucrose 125 mg In Sodium Chloride 0.9% 100 ml @ 100 mls/hr IVPB DAILY [facility] Rx#:[id number] Oral 970 Output: Urine 1625 3600 700 Other: Voiding Method Indwelling Catheter Indwelling Catheter Indwelling Catheter - Exam GENERAL EXAM: Alert, pleasant 62-year-old male, features of Marfan's syndrome, on room air, comfortable in no apparent distress. HEAD: Normocephalic. EYES: Normal reaction of pupils, equal size. NOSE: Clear with pink turbinates. THROAT: No erythema or exudates. NECK: No masses, no JVD. CHEST: No chest wall deformity. LUNGS: Equal air entry with no crackles, wheeze, rhonchi or dullness. CVS: S1 and S2 normal with no audible murmur, regular rhythm. ABDOMEN: No hepatosplenomegaly, normal bowel sounds, no guarding or rigidity. SPINE: No scoliosis or deformity SKIN: No rashes CENTRAL NERVOUS SYSTEM: No focal deficits, tone is normal in all 4 extremities. EXTREMITIES: There is no peripheral edema. No clubbing, no cyanosis. Peripheral pulses are intact. - Labs CBC & Chem 7: 10/03/23 05:14 10/04/23 05:47 Labs: Abnormal Lab Results - Last 24 Hours (Table) 10/03/23 10/03/23 10/04/23 Range/Units 11:55 19:28 05:47 Sodium 124 L 127 L (137-145) mmol/L Chloride 96 L (98-107) mmol/L Carbon Dioxide 21 L (22-30) mmol/L BUN/Creatinine Ratio 10.90 L (12.00-20.00) Ratio Calcium 8.1 L 8.4 L (8.4-10.2) mg/dL Total Protein 5.9 L (6.3-8.2) g/dL Albumin 3.1 L (3.5-5.0) g/dL Assessment and Plan Assessment: Acute hypovolemic hyponatremia, likely secondary to nausea vomiting and diuretics, improved current sodium 137 Acute hypokalemia from diuretics and dehydration, improved current potassium 4.0 History of Marfan syndrome Liver cirrhosis, possible liver mass this needs to be further addressed possibly consider liver biopsy Anemia exact etiology is not clear, received 1 unit of packed red blood cells, current hemoglobin 7.0 Acute metabolic encephalopathy secondary to electrolyte imbalance/hyponatremia, improved Unexplained weight loss for the last few months History of depression Dyslipidemia History of ascending aortic graft for aortic aneurysm Plan: The patient was seen and evaluated Labs and medications reviewed Sodium improved to 137 Nephrology is following Remains stable and on room air This patient was seen independently by the pulmonary nurse practitioner addressing pulmonary issues I have personally seen and examined the patient, performed the documentation and the assessment and plan as written. Number of minutes spent on the visit: 23.
--- NOTE | 2023-10-04 11:44 | P.PN ---
Subjective patient is seen for follow-up for hyponatremia. He is currently doing well. Denies any significant complaints. patient was restarted on normal saline. Sodium is up to 137 today. No significant complaints. Objective - Vital Signs Vital signs: Vital Signs Temp 98 F 10/04/23 06:49 Pulse 89 10/04/23 06:49 Resp 16 10/04/23 08:00 BP 155/78 10/04/23 06:49 Pulse Ox 99 10/04/23 06:49 FiO2 Intake & Output 10/03/23 10/04/23 10/04/23 18:59 06:59 18:59 Intake Total 1170 Output Total 1625 3600 700 Balance -455 -3600 -700 Intake: IV 200 Magnesium Sulfate-D5w Pmx 100 1 gm In Dextrose/Water 1 100ml.bag @ 100 mls/hr IVPB ONCE ONE Rx#: [id number] Sodium Ferric Gluconat- 100 Sucrose 125 mg In Sodium Chloride 0.9% 100 ml @ 100 mls/hr IVPB DAILY [facility] Rx#:[id number] Oral 970 Output: Urine 1625 3600 700 Other: Voiding Method Indwelling Catheter Indwelling Catheter Indwelling Catheter - Exam patient is awake, comfortable, no acute distress. Examination of the heart S1 and S2 Examination of the lungs bilateral breath sounds are heard Abdomen is soft nontender Examination lower extremities shows no evidence of edema [employer] exam grossly intact - Labs CBC & Chem 7: 10/03/23 05:14 10/04/23 05:47 Labs: Abnormal Lab Results - Last 24 Hours (Table) 10/03/23 10/03/23 10/04/23 Range/Units 11:55 19:28 05:47 Sodium 124 L 127 L (137-145) mmol/L Chloride 96 L (98-107) mmol/L Carbon Dioxide 21 L (22-30) mmol/L BUN/Creatinine Ratio 10.90 L (12.00-20.00) Ratio Calcium 8.1 L 8.4 L (8.4-10.2) mg/dL Total Protein 5.9 L (6.3-8.2) g/dL Albumin 3.1 L (3.5-5.0) g/dL Assessment and Plan Assessment: 1. Hypovolemic hyponatremia worsened with use of thiazide diuretics. Also component of poor solute intake. Status post D5W and DDAVP to avoid rapid increase in sodium. restarted normal saline yesterday and sodium is at 137 today 2. Hypokalemia from diuretics and poor intake 3. Strep Marfan syndrome 4. Acute blood loss anemia with no active bleeding noted.status post packed RBCs transfusion. hemoglobin stable at 7.0 Plan: DC fluid restriction DC normal saline Repeat labs in a.m.
[2023-10-04] MEDS: lisinopriL 20 MG TAB PO SCH (13:11)
--- NOTE | 2023-10-04 18:06 | P.PN ---
Progress Note - Text Progress Note Date: 10/04/23 Chief Complaint: Multiple symptom This is a pleasant 62-year-old patient, is a resident at [facility]. Follows with Dr. Bauer. Chronic stable medical condition include atrial fibrillation, hypertension, hyperlipidemia, Marfan syndrome with a mental age of 81-year-old. History of coronary ablation. For atrial fibrillation. Thoracic aneurysm surgery for ascending aorta graft in 2004 Patient's sister Kasey is the legal guardian. Her was the bedside takes the patient all his appointment. About 2 months patient is been having dry heaves. More so in the since yesterday. Has been losing weight has lost about 23 pounds in the last 3 to 4 months. Diet. Does get short of breath. Sleeps with 1 pillow at night. Mild edema. September 30: Patient changed to a softer diet. Had 100% of his lunch. Abdominal ultrasound shows hypoechoic area in the right inferior lobe of liver 4.5 x 4 x 3.9 cm-described as a solid lesion.. Discussed with [id number] at the bedside. Sodium remains at 115. Increase IV fluids to 100 cc an hour. Add s alt tablet. Pending serum osmolality. Patient's had decreased oral intake at home. Patient also has iron deficiency anemia. Will transfuse IV iron. October 01: Yesterday evening patient had some mental status changes. Patient moved to the ICU. Patient's sister and [id number] at the bedside. Nephrology was consulted. Received DDAVP 1 mcg today. Sinus rhythm. Answering simple questions. Lengthy talk with the sister and [id number] at the bedside. Patient made DNR. Mass on the right lobe of liver discussed. Some improvement in sodium. Patient probably had acute delirium overnight. October 02: ICU. Sitting up in a chair. Tolerating diet well. Sodium 124. Remains on fluid restriction. IV Ferrlecit. October 03: Medical floor. Sodium much improved. Spoke to the [id number] at the bedside. Will see how patient does with increase activity.. Lisinopril home dose resumed Active Medications Atorvastatin Calcium (Atorvastatin 20 Mg Tab) 20 mg PO HS [facility] Last Admin: 10/03/23 20:20 Dose: 20 mg Doxazosin Mesylate (Doxazosin 4 Mg Tab) 4 mg PO [facility] Last Admin: 10/03/23 20:20 Dose: 4 mg Lisinopril (Lisinopril 20 Mg Tab) 20 mg PO BID [facility] Last Admin: 10/04/23 13:11 Dose: 20 mg Metoprolol Succinate (Metoprolol Succinate (Er) 50 Mg Tab.Er.24h) 50 mg PO HS [facility] Last Admin: 10/03/23 20:20 Dose: 50 mg Metoprolol Succinate (Metoprolol Succinate (Er) 25 Mg Tab.Er.24h) 75 mg PO DAILY [facility] Last Admin: 10/04/23 10:28 Dose: 75 mg Miscellaneous Information (Potassium Replacement Protocol 1 Each Misc) 1 each MISCELLANE DAILY PRN; Protocol PRN Reason: Per Protocol Miscellaneous Information (Magnesium Replacement Protocol 1 Each Misc) 1 each MISCELLANE DAILY PRN; Protocol PRN Reason: Per Protocol Miscellaneous Information (Potassium Replacement Protocol 1 Each Misc) 1 each MISCELLANE DAILY PRN; Protocol PRN Reason: Per Protocol Multivitamins (Multivitamins, Thera 1 Each Tab) 1 each PO DAILY [facility] Last Admin: 10/04/23 10:28 Dose: 1 each Naloxone HCl (Naloxone 0.4 Mg/Ml 1 Ml Vial) 0.2 mg IV Q2M PRN PRN Reason: Opioid Reversal Ondansetron HCl (Ondansetron 4 Mg/2 Ml Vial) 4 mg IVP Q8HR PRN PRN Reason: Nausea And Vomiting Paroxetine HCl (Paroxetine 20 Mg Tab) 40 mg PO DAILY [facility] Last Admin: 10/04/23 10:28 Dose: 40 mg Rivaroxaban (Rivaroxaban 20 Mg Tab) 20 mg PO W/SUPPER [facility]; Protocol Last Admin: 10/03/23 17:40 Dose: 20 mg Physical examination: VITAL SIGNS: 98.6, 75, 16, 1 4586, 98% room air GENERAL: Resting in bed. Marfanoid features EYES: Pupils equal. Conjunctiva pale HEENT: External appearance of nose and ears normal, oral cavity grossly normal. NECK: JVD not raised; masses not palpable. HEART: Heart sounds are regular l; no edema. LUNGS: Respiratory rate normal; clear to auscultation. ABDOMEN: Soft, nontender, liver spleen not palpable, no masses palpable. PSYCH: Able to answer simple questions MUSCULOSKELETAL:No Clubbing/cyanosis;muscles-grossly intact Investigation October 03: Sodium 137 potassium 4 creatinine 1.0 October 02: White count 4.6 hemoglobin 7 potassium 3.8 creatinine 0.84 TSH 3.3 Alpha-fetoprotein less than 3 CEA less than 2 October 01: White count 5.1 hemoglobin 7 platelets 219 sodium 126 potassium 3.3 creatinine 0.94. Serum osmolality 255 September 30: White count 5.5 hemoglobin 7.3 platelets 293 sodium 115 potassium 3.2 BUN 18 creatinine 1.15 Liver ultrasound: Hypoechoic area/solid in the right inferior lobe measuring 4.5 x 4 x 3.9 cm. Iron 32 TIBC 409% saturation 7.82 ferritin 91.1 total bilirubin 1.8 Vitamin B12 524 folate 34.6 September 29: White count 4.4 hemoglobin 6.8 platelets 273 sodium 116 potassium 3.5 BUN 21 creatinine 1.16 total bilirubin 1.6 EKG tracing personally reviewed by me-atrial fibrillation. PVCs. CT scan abdomen pelvis abnormal liver on CT scan t: Liver suggestive of cirrhosis/hepatitis Assessment plan: -Severe hyponatremia. Suspect hypoosmolar: Better Fluid restriction 1500 cc a day. . Avoid free fluid DDAVP 1 dose given Being followed by nephrology -Acute delirium overnight positive from low sodium: Resolved -Weight loss loss of appetite for last 3 to 4 months. Patient lost about [address] scan abdomen pelvis nonspecific AFP, CEA.: Both negative -Abnormal liver morphology on the CT scan: Ultrasound showing 4.5 x 4 x 3.9 cm solid tumor. For further outpatient workup -Marfan syndrome. Mental age of 9-year-old -Essential hypertension, for better control Toprol-XL. Resume home dose of lisinopril today -Iron deficiency anemia: New diagnosis IV Ferrlecit -Persistent atrial fibrillation History of cardiac ablation. Toprol-XL. Xarelto. -Ascending aortic arch graft from warfarin in 2005 -BPH Cardura -Hyperlipidemia Lipitor -Anxiety Paxil -Legal guardian, sister: Mallika Sierra -DNR Advance care planning [October 02, 2023] Patient's sister did say that patient's had multiple treatments in the past. A lot of running around with medical issues. She understands patient's prognosis is somewhat guarded especially in view of this liver mass turns out to be cancer. They understand patient will have to go outside this current place for further investigation for the same. This point the sister who is the POA decided to make the patient DNR. About 25 minutes was spent for this. Continue current medications. Resume home dose of lisinopril. Increase activ ity. 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 History of Any Multi-Drug Resistant Organisms: None Reported Past Surgical History: Cardiac Ablation, Coronary Bypass/CABG, Orthopedic Surgery Additional Past Surgical History / Comment(s): "Had Aorta rebuilt in 2004", knee arthroscopy, right carpal tunnel release, 2 cardioversions Past Anesthesia/Blood Transfusion Reactions: No Reported Reaction Past Psychological History: Anxiety Smoking Status: Never smoker Past Alcohol Use History: None Reported Past Drug Use History: None Reported
--- NOTE | 2023-10-05 11:27 | P.PN ---
Subjective patient is seen for follow-up for hyponatremia. He is currently doing well. Denies any significant complaints. patient was restarted on normal saline. Sodium improved to 137 yesterday and saline was discontinued. No significant complaints. sodium at 135 today Objective - Vital Signs Vital signs: Vital Signs Temp 98 F 10/05/23 07:34 Pulse 75 10/05/23 07:34 Resp 18 10/05/23 07:34 BP 156/86 10/05/23 07:34 Pulse Ox 99 10/05/23 07:34 FiO2 Intake & Output 10/04/23 10/05/23 10/05/23 18:59 06:59 18:59 Intake Total 924 640 684 Output Total 1325 2350 600 Balance -401 -1710 84 Intake: Oral 924 640 684 Output: Urine 1325 2350 600 Other: Voiding Method Indwelling Catheter Indwelling Catheter Indwelling Catheter - Exam patient is awake, comfortable, no acute distress. 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 Hypovolemic hyponatremia worsened with use of thiazide diuretics. Also component of poor solute intake. Status post D5W and DDAVP to avoid rapid increase in sodium. restarted normal saline with improvement in sodium. It is 135 today. Saline was discontinued yesterday when sodium was 137. 2. Hypokalemia from diuretics and poor intake 3. Strep Marfan syndrome 4. Acute blood loss anemia with no active bleeding noted.status post packed RBCs transfusion. hemoglobin stable at 7.0 Plan: continue fluid restriction repeat sodium this afternoon Repeat labs in a.m. okay to remove Burch catheter and check post void residual
[2023-10-05 11:41] LABS: Sodium 133 mmol/L (137-145)
[2023-10-05 12:33] LABS: ALT 17 U/L (4-49); AST 17 U/L (17-59); African American GFR (CKD) >90 (>60 ml/min/1.73 sqM); Albumin 3.4 g/dL (3.5-5.0); Albumin/Globulin Ratio 1.2; Alkaline Phosphatase 72 U/L (38-126); Anion Gap 6 mmol/L; Blood Urea Nitrogen 13 mg/dL (9-20); Calcium 8.5 mg/dL (8.4-10.2); Carbon Dioxide 22 mmol/L (22-30); Chloride 105 mmol/L (98-107); Globulin 2.8 g/dL; Glucose 101 mg/dL (74-99); Non-African American GFR(CKD) >90 (>60 ml/min/1.73 sqM); Potassium 3.6 mmol/L (3.5-5.1); Total Bilirubin 1.1 mg/dL (0.2-1.3); Total Protein 6.2 g/dL (6.3-8.2)
[2023-10-05 12:35] LABS: Anisocytosis Slight; Basophils % (A) 0 %; Eosinophils % (A) 0 %; HCT 24.8 % (39.0-53.0); HGB 7.3 gm/dL (13.0-17.5); Hypochromasia Marked; Lymphocytes # (A) 0.6 k/uL (1.0-4.8); Lymphocytes % (A) 10 %; MCH 25.1 pg (25.0-35.0); MCHC 29.4 g/dL (31.0-37.0); MCV 85.4 fL (80.0-100.0); Mean Platelet Volume 9.3; Monocytes # (A) 0.3 k/uL (0-1.0); Monocytes % (A) 5 %; Neutrophils # (A) 4.7 k/uL (1.3-7.7); Neutrophils % (A) 84 %; Platelet Count 232 k/uL (150-450); RBC 2.91 m/uL (4.30-5.90); RDW 17.5 % (11.5-15.5); WBC 5.7 k/uL (3.8-10.6)
[2023-10-05] MEDS: SODIUM CHLORIDE TAB 1 GM TAB PO SCH (13:09)
--- NOTE | 2023-10-05 15:12 | P.PN ---
Progress Note - Text Progress Note Date: 10/05/23 Chief Complaint: Multiple symptom This is a pleasant 62-year-old patient, is a resident at [facility]. Follows with Dr. Bauer. Chronic stable medical condition include atrial fibrillation, hypertension, hyperlipidemia, Marfan syndrome with a mental age of 81-year-old. History of coronary ablation. For atrial fibrillation. Thoracic aneurysm surgery for ascending aorta graft in 2004 Patient's sister Kasey is the legal guardian. Her was the bedside takes the patient all his appointment. About 2 months patient is been having dry heaves. More so in the since yesterday. Has been losing weight has lost about 23 pounds in the last 3 to 4 months. Diet. Does get short of breath. Sleeps with 1 pillow at night. Mild edema. September 30: Patient changed to a softer diet. Had 100% of his lunch. Abdominal ultrasound shows hypoechoic area in the right inferior lobe of liver 4.5 x 4 x 3.9 cm-described as a solid lesion.. Discussed with [id number] at the bedside. Sodium remains at 115. Increase IV fluids to 100 cc an hour. Add s alt tablet. Pending serum osmolality. Patient's had decreased oral intake at home. Patient also has iron deficiency anemia. Will transfuse IV iron. October 01: Yesterday evening patient had some mental status changes. Patient moved to the ICU. Patient's sister and [id number] at the bedside. Nephrology was consulted. Received DDAVP 1 mcg today. Sinus rhythm. Answering simple questions. Lengthy talk with the sister and zyylipl-[id number] at the bedside. Patient made DNR. Mass on the right lobe of liver discussed. Some improvement in sodium. Patient probably had acute delirium overnight. October 02: ICU. Sitting up in a chair. Tolerating diet well. Sodium 124. Remains on fluid restriction. IV Ferrlecit. October 03: Medical floor. Sodium much improved. Spoke to the [id number]-[id number] at the bedside. Will see how patient does with increase activity.. Lisinopril home dose resumed October 04: Patient being seen by oncology today. Burch catheter is discontinued. Waiting for patient to make urine. Plan was for discharge later today or tomorrow morning. Active Medications Atorvastatin Calcium (Atorvastatin 20 Mg Tab) 20 mg PO HS VIRAJ Last Admin: 10/04/23 20:43 Dose: 20 mg Doxazosin Mesylate (Doxazosin 4 Mg Tab) 4 mg PO HS [facility] Last Admin: 10/04/23 20:42 Dose: 4 mg Lisinopril (Lisinopril 20 Mg Tab) 20 mg PO BID [facility] Last Admin: 10/05/23 09:38 Dose: 20 mg Metoprolol Succinate (Metoprolol Succinate (Er) 50 Mg Tab.Er.24h) 50 mg PO HS [facility] Last Admin: 10/04/23 20:43 Dose: 50 mg Metoprolol Succinate (Metoprolol Succinate (Er) 25 Mg Tab.Er.24h) 75 mg PO DAILY [facility] Last Admin: 10/05/23 09:38 Dose: 75 mg Miscellaneous Information (Potassium Replacement Protocol 1 Each Misc) 1 each MISCELLANE DAILY PRN; Protocol PRN Reason: Per Protocol Miscellaneous Information (Magnesium Replacement Protocol 1 Each Misc) 1 each MISCELLANE DAILY PRN; Protocol PRN Reason: Per Protocol Miscellaneous Information (Potassium Replacement Protocol 1 Each Misc) 1 each MISCELLANE DAILY PRN; Protocol PRN Reason: Per Protocol Multivitamins (Multivitamins, Thera 1 Each Tab) 1 each PO DAILY [facility] Last Admin: 10/05/23 09:38 Dose: 1 each Naloxone HCl (Naloxone 0.4 Mg/Ml 1 Ml Vial) 0.2 mg IV Q2M PRN PRN Reason: Opioid Reversal Ondansetron HCl (Ondansetron 4 Mg/2 Ml Vial) 4 mg IVP Q8HR PRN PRN Reason: Nausea And Vomiting Paroxetine HCl (Paroxetine 20 Mg Tab) 40 mg PO DAILY [facility] Last Admin: 10/05/23 09:38 Dose: 40 mg Rivaroxaban (Rivaroxaban 20 Mg Tab) 20 mg PO W/SUPPER [facility]; Protocol Last Admin: 10/04/23 18:51 Dose: 20 mg Sodium Chloride (Sodium Chloride Tab 1 Gm Tab) 1 gm PO DAILY [facility] Last Admin: 10/05/23 13:09 Dose: 1 gm Physical examination: VITAL SIGNS: 98.5, 73, 17, 124 x 78, 98% room air GENERAL: Resting in bed. Marfanoid features EYES: Pupils equal. Conjunctiva pale HEENT: External appearance of nose and ears normal, oral cavity grossly normal. NECK: JVD not raised; masses not palpable. HEART: Heart sounds are regular l; no edema. LUNGS: Respiratory rate normal; clear to auscultation. ABDOMEN: Soft, nontender, liver spleen not palpable, no masses palpable, Burch catheter. PSYCH: Able to answer simple questions MUSCULOSKELETAL:No Clubbing/cyanosis;muscles-grossly intact Investigation October 04: Sodium 133 potassium 3.6 creatinine 0.87 October 03: Sodium 137 potassium 4 creatinine 1.0 October 02: White count 4.6 hemoglobin 7 potassium 3.8 creatinine 0.84 TSH 3.3 Alpha-fetoprotein less than 3 CEA less than 2 October 01: White count 5.1 hemoglobin 7 platelets 219 sodium 126 potassium 3.3 creatinine 0.94. Serum osmolality 255 September 30: White count 5.5 hemoglobin 7.3 platelets 293 sodium 115 potassium 3.2 BUN 18 creatinine 1.15 Liver ultrasound: Hypoechoic area/solid in the right inferior lobe measuring 4.5 x 4 x 3.9 cm. Iron 32 TIBC 409% saturation 7.82 ferritin 91.1 total bilirubin 1.8 Vitamin B12 524 folate 34.6 September 29: White count 4.4 hemoglobin 6.8 platelets 273 sodium 116 potassium 3.5 BUN 21 creatinine 1.16 total bilirubin 1.6 EKG tracing personally reviewed by me-atrial fibrillation. PVCs. CT scan abdomen pelvis abnormal liver on CT scan t: Liver suggestive of cirrhosis/hepatitis Assessment plan: -Severe hyponatremia. Suspect hypoosmolar: Improved Fluid restriction 1500 cc a day. . Avoid free fluid DDAVP 1 dose given Being followed by nephrology -Acute delirium overnight positive from low sodium: Resolved -Weight loss loss of appetite for last 3 to 4 months. Patient lost about [address] scan abdomen pelvis nonspecific AFP, CEA.: Both negative -Abnormal liver morphology on the CT scan: Ultrasound showing 4.5 x 4 x 3.[address] Jaimes from oncology consulted -Marfan syndrome. Mental age of 9-year-old -Essential hypertension, for better control Toprol-XL. Resume home dose of lisinopril today -Iron deficiency anemia with normocytic anemia IV Ferrlecit Heme oncology consulted -Persistent atrial fibrillation History of cardiac ablation. Toprol-XL. Xarelto. -Ascending aortic arch graft from warfarin in 2004 -BPH Cardura -Hyperlipidemia Lipitor -Anxiety Paxil -Legal guardian, sister: Mallika Sierra -DNR Advance care planning [October 02, 2023] Patient's sister did say that patient's had multiple treatments in the past. A lot of running around with medical issues. She understands patient's prognosis is somewhat guarded especially in view of this liver mass turns out to be cancer. They understand patient will have to go outside this current place for further investigation for the same. This point the sister who is the POA decided to make the patient DNR. About 25 minutes was spent for this. Burch catheter discontinued today. Patient may be discharged later today or tomorrow. Patient seen by oncology today. 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 History of Any Multi-Drug Resistant Organisms: None Reported Past Surgical History: Cardiac Ablation, Coronary Bypass/CABG, Orthopedic Surgery Additional Past Surgical History / Comment(s): "Had Aorta rebuilt in 2004", knee arthroscopy, right carpal tunnel release, 2 cardioversions Past Anesthesia/Blood Transfusion Reactions: No Reported Reaction Past Psychological History: Anxiety Smoking Status: Never smoker Past Alcohol Use History: None Reported Past Drug Use History: None Reported
[2023-10-06 08:03] VITALS: BP 151/74; PULSE 68; RESP 18; TEMP 97.5
--- NOTE | 2023-10-06 08:28 | P.CONS ---
History of Present Illness - Reason for Consult Consult date: 10/05/23 liver mass Requesting physician: Arsh Ramos - Chief Complaint n/v - History of Present Illness Patient is a 62-year-old white male with a significant history of marfan syndrome, cognitive impairment, and atrial fibrillation anticoagulated with Xarelto. Consult was placed due to suspicion of liver mass noted on US. Most of HPI was provided by legal guardian at bedside. Patient presents to emergency room with complaints of intermittent nausea vomiting and dry heaves with associated 20 lb weight loss over the last 2 months. Patient was seen in urgent care and was noted to be jaundice and was sent to the emergency room for further evaluation. Upon admission patient was found to be severely hyponatremic with sodium at 116. He was also found to be anemic with a hemoglobin of 6.8 and MCV of 75.9, receiving 1 unit of PRBCs. Platelets in normal range. Anemia workup revealed iron deficiency anemia, parenteral iron has been given. No vitamin B12 or folate deficiency noted. CT abdomen and pelvis with contrast revealed an no acute processes. Liver shows diffuse variable density suggesting medical liver disease such as cirrhosis or hepatitis. Patient then underwent abdominal ultrasound showing hepatomegaly with mild fatty liver infiltration. Solid lesion within the right lobe of the liver measuring 4.5 x 4.0 x 3.9 cm. On admission bilirubin was elevated at 1.6. LFTs, amylase and lipase normal. Acute hepatitis panel negative. CEA and AFP tumor markers normal. Family denies any known cancer history for patient. Denies EtOH abuse or smoking. Denies blood in stool or melena. Last colonoscopy was approximately 2 years ago which was normal. He has never had an EGD. Review of Systems 10 point ROS is negative except as stated in the HPI 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 History of Any Multi-Drug Resistant Organisms: None Reported Past Surgical History: Cardiac Ablation, Coronary Bypass/CABG, Orthopedic Surgery Additional Past Surgical History / Comment(s): "Had Aorta rebuilt in 2004", knee arthroscopy, right carpal tunnel release, 2 cardioversions Past Anesthesia/Blood Transfusion Reactions: No Reported Reaction Past Psychological History: Anxiety Smoking Status: Never smoker Past Alcohol Use History: None Reported Past Drug Use History: None Reported - Past Family History Mother History Unknown: Yes Family Medical History: No Reported History Medications and Allergies Home Medications Medication Instructions Recorded Confirmed Type Atorvastatin [Lipitor] 20 mg PO HS 12/22/18 09/30/23 History Multivitamins, Thera [Multivitamin 1 tab PO DAILY 12/22/18 09/30/23 History (formulary)] PARoxetine HCL [Paxil] 40 mg PO DAILY 12/22/18 09/30/23 History Terazosin [Hytrin] 5 mg PO HS 12/22/18 09/30/23 History lisinopriL 20 mg PO BID 12/22/18 09/30/23 History Ferrous Sulfate [Iron (65 MG 325 mg PO DAILY 05/15/21 09/30/23 History Elemental)] Cholecalciferol [Vitamin D3 (10 10 mcg PO DAILY 03/18/22 09/30/23 History Mcg = 400 Iu)] Rivaroxaban [Xarelto] 20 mg PO W/SUPPER 03/18/22 09/30/23 History Metoprolol Succinate (ER) [Toprol 75 mg PO DAILY 05/27/23 09/30/23 History XL] Metoprolol Succinate (ER) [Toprol 50 mg PO HS 09/30/23 09/30/23 History XL] Sodium Chloride Tab 1 gm PO DAILY #60 tab 10/05/23 Rx Allergies Allergy/AdvReac Type Severity Reaction Status Date / Time No Known Allergies Allergy Verified 09/30/23 17:22 Physical Exam Vitals: Vital Signs Temp Pulse Pulse Resp BP BP Pulse Ox 10/05/23 07:34 98 F 75 18 156/86 99 10/05/23 02:00 97.4 F L 59 L 18 130/75 97 10/04/23 19:35 97.6 F 63 20 140/77 98 10/04/23 12:51 98.6 F 75 16 145/86 98 Intake and Output 10/04/23 10/05/23 10/05/23 22:59 06:59 14:59 Intake Total 1324 240 684 Output Total 900 1450 600 Balance 424 -1210 84 Intake: Oral 1324 240 684 Output: Urine 900 1450 600 Other: Voiding Method Indwelling Catheter Indwelling Catheter - Constitutional General appearance: average body habitus, no acute distress - EENT Eyes: anicteric sclerae, EOMI ENT: hearing grossly normal - Respiratory Respiratory: bilateral: CTA - Cardiovascular Rhythm: irregularly irregular Heart sounds: normal: S1, S2 - Gastrointestinal General gastrointestinal: no distended, soft, no tenderness - Integumentary mildly jaundiced Integumentary: no cyanotic, pale - Neurologic Neurologic: CNII-XII intact - Musculoskeletal Musculoskeletal: strength equal bilaterally - Psychiatric cognitive impairment, at baseline Results CBC & Chem 7: 10/05/23 05:47 10/05/23 11:10 Labs: Abnormal Lab Results - Last 24 Hours (Table) 10/05/23 10/05/23 Range/Units 06:01 11:10 Sodium 135 L 133 L (137-145) mmol/L CT scan - abdomen: report reviewed CT scan - pelvis: report reviewed US - abdomen: report reviewed Assessment and Plan (1) Anemia Current Visit: Yes Status: Acute Priority: High Code(s): D64.9 - ANEMIA, UNSPECIFIED SNOMED Code(s): 751392500 (2) Hyponatremia Current Visit: Yes Status: Acute Priority: High Code(s): E87.1 - HYPO- OSMOLALITY AND HYPONATREMIA SNOMED Code(s): 50218184 Plan: R/o liver mass: Presented with complaints of intermittent nausea vomiting and dry heaves with associated 20 lb weight loss over the last 2 months. No known personal history of cancer. Denies EtOH abuse or smoking. Denies blood in stool or melena. Last colonoscopy was approximately 2 years ago which was normal. He has never had an EGD. -On admission bilirubin was elevated at 1.6. LFTs, amylase and lipase normal. Acute hepatitis panel negative. CEA and AFP tumor markers normal. -CT abdomen and pelvis with contrast revealed an no acute processes. Liver shows diffuse variable density suggesting medical liver disease such as cirrhosis or hepatitis. Patient then underwent abdominal ultrasound showing hepatomegaly with mild fatty liver infiltration. Solid lesion within the right lobe of the liver measuring 4.5 x 4.0 x 3.9 cm -Discussed results with patient and family, and that CT imaging with contrast typically is more sensitive than US, and that findings on US will need further evaluation. Will need to obtain MRI liver for further evaluation. Will also need outpt referral to GI for endoscopic evaluation. -Discussed with family workup can be done in the outpt setting. Will schedule imaging and subsequent clinic f/u to discuss results and possible need for biopsy, pending MRI results Anemia: -On admission hemoglobin noted at 6.8 with MCV of 75.9. S/p 1 unit of PRBCs. Platelets in normal range, 211,000 today. Hgb 7.3. Upon trending labs hgb was in normal range in 2021. He is anticoagulated with Xarelto for a-fib. Denies any blood in stool or melena. Last colonoscopy was approximately 2 years ago which was normal. He has never had an EGD. -Anemia workup revealed iron deficiency anemia, parenteral iron has been given x 3 doses. No vitamin B12 or folate deficiency noted -Will schedule outpt feraheme infusions and clinic f/u for further monito ring/management -Will place outpt referral to GI, Dr. Davenport for endoscopic evaluation
--- NOTE | 2023-10-06 22:32 | P.DS ---
Providers Date of admission: 09/30/23 15:56 Expected date of discharge: 10/06/23 Attending physician: Arsh Ramos Consults: 10/01/23 22:25 Consult Physician Stat Consulting Provider: Silverio Ingram Consult Reason/Comments: hyponatremia Do you want consulting provider notified?: Yes 10/01/23 22:28 Consult Physician Stat Consulting Provider: Serge Redding Consult Reason/Comments: hyponatremia, AMS, anemia Do you want consulting provider notified?: Yes 10/05/23 10:37 Consult Physician Routine Consulting Provider: Antoine Jaimes Consult Reason/Comments: Liver mass Do you want consulting provider notified?: Yes Primary care physician: [facility] Hospital Course: Chief Complaint: Multiple symptom This is a pleasant 62-year-old patient, is a resident at [facility]. Follows with Dr. Bauer. Chronic stable medical condition include atrial fibrillation, hypertension, hyperlipidemia, Marfan syndrome with a mental age of 81-year-old. History of coronary ablation. For atrial fibrillation. Thoracic aneurysm surgery for ascending aorta graft in 2004 Patient's sister Kasey is the legal guardian. Her was the bedside takes the patient all his appointment. About 2 months patient is been having dry heaves. More so in the since yesterday. Has been losing weight has lost about 23 pounds in the last 3 to 4 months. Diet. Does get short of breath. Sleeps with 1 pillow at night. Mild edema. September 30: Patient changed to a softer diet. Had 100% of his lunch. Abdominal ultrasound shows hypoechoic area in the right inferior lobe of liver 4.5 x 4 x 3.9 cm-described as a solid lesion.. Discussed with [id number] at the bedside. Sodium remains at 115. Increase IV fluids to 100 cc an hour. Add salt tablet. Pending serum osmolality. Patient's had decreased oral intake at home. Patient also has iron deficiency anemia. Will transfuse IV iron. October 01: Yesterday evening patient had some mental status changes. Patient moved to the ICU. Patient's sister and [id number] at the bedside. Nephrology was consulted. Received DDAVP 1 mcg today. Sinus rhythm. Answering simple questions. Lengthy talk with the sister and [id number] at the bedside. Patient made DNR. Mass on the right lobe of liver discussed. Some improvement in sodium. Patient probably had acute delirium overnight. October 02: ICU. Sitting up in a chair. Tolerating diet well. Sodium 124. Remains on fluid restriction. IV Ferrlecit. October 03: Medical floor. Sodium much improved. Spoke to the [id number] at the bedside. Will see how patient does with increase activity.. Lisinopril home dose resumed October 04: Patient being seen by oncology today. Burch catheter is discontinued. Waiting for patient to make urine. Plan was for discharge later today or tomorrow morning. October 05: Patient doing well. Making good urine. Patient follow-up with oncology Dr. Jaimes outpatient. Care was discussed with the dyolseh-ft-iog at the bedside. Questions answered. Patient ambulating well. Discussion and discharge planning more than 35 minutes Physical examination: VITAL SIGNS: 97.5, 68, 18, 151 x 74, 97% room air GENERAL: Comfortable. Marfanoid features EYES: Pupils equal. Conjunctiva pale HEENT: External appearance of nose and ears normal, oral cavity grossly normal. NECK: JVD not raised; masses not palpable. HEART: Heart sounds are regular l; no edema. LUNGS: Respiratory rate normal; clear to auscultation. ABDOMEN: Soft, nontender, liver spleen not palpable, no masses palpable, Burch catheter. PSYCH: Able to answer simple questions MUSCULOSKELETAL:No Clubbing/cyanosis;muscles-grossly intact Investigation October 04: Sodium 133 potassium 3.6 creatinine 0.87 October 02: White count 4.6 hemoglobin 7 potassium 3.8 creatinine 0.84 TSH 3.3 Alpha-fetoprotein less than 3 CEA less than 2 October 01: White count 5.1 hemoglobin 7 platelets 219 sodium 126 potassium 3.3 creatinine 0.94. Serum osmolality 255 Liver ultrasound: Hypoechoic area/solid in the right inferior lobe measuring 4.5 x 4 x 3.9 cm. Iron 32 TIBC 409% saturation 7.82 ferritin 91.1 total bilirubin 1.8 Vitamin B12 524 folate 34.6 September 29: White count 4.4 hemoglobin 6.8 platelets 273 sodium 116 potassium 3.5 BUN 21 creatinine 1.16 total bilirubin 1.6 EKG tracing personally reviewed by me-atrial fibrillation. PVCs. CT scan abdomen pelvis abnormal liver on CT scan t: Liver suggestive of cirrhosis/hepatitis Assessment plan: -Severe hyponatremia. Suspect hypoosmolar: Improved Fluid restriction 1800 cc a day. Salt tablet 1 a day DDAVP 1 dose given -Acute delirium from low sodium: Resolved -Weight loss loss of appetite for last 3 to 4 months. Patient lost about [address] scan abdomen pelvis nonspecific AFP, CEA.: Both negative -Abnormal liver morphology on the CT scan: Ultrasound showing 4.5 x 4 x 3.[address] Jaimes from oncology saw the patient. Follow-up outpatient -Marfan syndrome. Mental age of 9-year-old -Essential hypertension, for better control Toprol-XL. Lisinopril -Iron deficiency anemia with normocytic anemia IV Ferrlecit Heme oncology about patient -Persistent atrial fibrillation History of cardiac ablation. Toprol-XL. Xarelto. -Ascending aortic arch graft from warfarin in 2004 -BPH Cardura -Hyperlipidemia Lipitor -Anxiety Paxil -Legal guardian, sister: Mallika Sierra -DNR Advance care planning [October 02, 2023] Patient's sister did say that patient's had multiple treatments in the past. A lot of running around with medical issues. She understands patient's prognosis is somewhat guarded especially in view of this liver mass turns out to be cancer. They understand patient will have to go outside this current place for further investigation for the same. This point the sister who is the POA decided to make the patient DNR. About 25 minutes was spent for this. Disposition: [facility]/assisted living. [facility] home care. 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 History of Any Multi-Drug Resistant Organisms: None Reported Past Surgical History: Cardiac Ablation, Coronary Bypass/CABG, Orthopedic Surgery Additional Past Surgical History / Comment(s): "Had Aorta rebuilt in 2004", knee arthroscopy, right carpal tunnel release, 2 cardioversions Past Anesthesia/Blood Transfusion Reactions: No Reported Reaction Past Psychological History: Anxiety Smoking Status: Never smoker Past Alcohol Use History: None Reported Past Drug Use History: None Reported Plan - Discharge Summary Discharge Rx Participant: Yes New Discharge Prescriptions: New Sodium Chloride Tab 1 gm PO DAILY #60 tab Continue Terazosin [Hytrin] 5 mg PO HS Atorvastatin [Lipitor] 20 mg PO HS lisinopriL 20 mg PO BID PARoxetine HCL [Paxil] 40 mg PO DAILY Multivitamins, Thera [Multivitamin (formulary)] 1 tab PO DAILY Cholecalciferol [Vitamin D3 (10 Mcg = 400 Iu)] 10 mcg PO DAILY Ferrous Sulfate [Iron (65 MG Elemental)] 325 mg PO DAILY Rivaroxaban [Xarelto] 20 mg PO W/SUPPER Metoprolol Succinate (ER) [Toprol XL] 75 mg PO DAILY Metoprolol Succinate (ER) [Toprol XL] 50 mg PO HS Discontinued Triamterene-Hctz 37.5-25Mg [Dyazide 37.5-25 Capsule] 1 cap PO DAILY Furosemide [Lasix] 20 mg PO DAILY hydrALAZINE HCL [Apresoline] 100 mg PO TID Potassium Chloride ER [K-Dur 10] 20 meq PO BID Discharge Medication List Atorvastatin [Lipitor] 20 mg PO HS 12/22/18 [History] Multivitamins, Thera [Multivitamin (formulary)] 1 tab PO DAILY 12/22/18 [History] PARoxetine HCL [Paxil] 40 mg PO DAILY 12/22/18 [History] Terazosin [Hytrin] 5 mg PO HS 12/22/18 [History] lisinopriL 20 mg PO BID 12/22/18 [History] Ferrous Sulfate [Iron (65 MG Elemental)] 325 mg PO DAILY 05/15/21 [History] Cholecalciferol [Vitamin D3 (10 Mcg = 400 Iu)] 10 mcg PO DAILY 03/18/22 [History] Rivaroxaban [Xarelto] 20 mg PO W/SUPPER 03/18/22 [History] Metoprolol Succinate (ER) [Toprol XL] 75 mg PO DAILY 05/27/23 [History] Metoprolol Succinate (ER) [Toprol XL] 50 mg PO HS 09/30/23 [History] Sodium Chloride Tab 1 gm PO DAILY #60 tab 10/05/23 [Rx] Follow up Appointment(s)/Referral(s): Antoine Jaimes [STAFF PHYSICIAN] - 1 Week (The office was not available to take calls please call and make follow up appointment.) Haile Bauer DO [Primary Care Provider] - 10/15/23 11:20 am [facility] Visiting Nurse, [NON-STAFF] - 1 Week Patient Instructions/Handouts: Sodium Chloride (By mouth), Hyponatremia (DC), Fluid Restriction (DC), Anemia (DC) Activity/Diet/Wound Care/Special Instructions: fluid restrict 1800 cc/day Discharge Disposition: HOME WITH HOME HEALTH SERVICES
== END 2023-10-06 12:43 | disposition home health service (06) | DRG 441 ==
LOC: EC 13:13 → 3SCARD 15:56 → 2SICU 10-01 22:45 → 5NMEDONC 10-03 14:45
PROVIDERS: ADMIT Hospitalist; ATTEND Hospitalist
PROC: 4A10X4Z Monitoring of Central Nervous Electrical Activity, External Approach (ICD-10-PCS; 2023-10-02)
PROC: 30233N1 Transfusion of Nonautologous Red Blood Cells into Peripheral Vein, Percutaneous Approach (ICD-10-PCS; principal; 2023-10-06)
DX: R17 Unspecified jaundice (principal); G93.41 Metabolic encephalopathy; F05 Delirium due to known physiological condition; D62 Acute posthemorrhagic anemia; E87.1 Hypo-osmolality and hyponatremia; Q87.40 Marfan syndrome, unspecified; I25.10 Atherosclerotic heart disease of native coronary artery without angina pectoris; D50.9 Iron deficiency anemia, unspecified; I10 Essential (primary) hypertension; Z79.01 Long term (current) use of anticoagulants; E78.5 Hyperlipidemia, unspecified; E86.1 Hypovolemia; E86.0 Dehydration; T50.2X5A Adverse effect of carbonic-anhydrase inhibitors, benzothiadiazides and other diuretics, initial encounter; X58.XXXA Exposure to other specified factors, initial encounter; E87.6 Hypokalemia; I45.9 Conduction disorder, unspecified; Z79.899 Other long term (current) drug therapy; Z95.1 Presence of aortocoronary bypass graft; Z66 Do not resuscitate; Z86.79 Personal history of other diseases of the circulatory system; Z87.19 Personal history of other diseases of the digestive system; F41.9 Anxiety disorder, unspecified; K74.60 Unspecified cirrhosis of liver; K76.0 Fatty (change of) liver, not elsewhere classified
CPT/HCPCS: 36415; 36430; 36600; 71045; 74018; 74177; 76705; 80048; 80053; 80074; 81001; 82105; 82150; 82248; 82378; 82533; 82607; 82728; 82746; 82805; 83010; 83540; 83550; 83605; 83690; 83735; 83930; 83935; 84132; 84153; 84295; 84300; 84443; 84484; 85025; 85027; 86850; 86900; 86901; 86920; 93005; 95819; 96361; 96374; 99291

== ENCOUNTER 2023-10-15 17:53 | Emergency (ER) | payer MEDICARE ==
[2023-10-15 18:49] VITALS: RESP 18
--- NOTE | 2023-10-15 18:55 | ED ---
Recheck HPI - General Source: patient, family, RN notes reviewed Mode of arrival: ambulatory Limitations: no limitations <Kaycee Joel - Last Filed: 10/15/23 18:25> - General Source: patient, family, RN notes reviewed <Winston Saucedo - Last Filed: 10/15/23 23:25> - General Chief Complaint: Recheck/Abnormal Lab/Rx Stated Complaint: abn labs Time Seen by Provider: 10/15/23 18:00 - History of Present Illness Initial Comments: Quick Note-this is a 62-year-old male presents to the ED with chief complaint of low hemoglobin. Patient states that he saw his primary care provider today where hemoglobin was noted to be 6.4 this morning. Patient was admitted to [facility] about 10 days ago was found to have low sodium and low hemoglobin and a mass on his liver. Patient is currently on Xarelto for A-fib. (Kaycee Joel) Patient is a 62-year-old male who presents emergency department for low hemoglobin. Has history of chronic anemia. Is on Xarelto for atrial fibrillation. Denies any hematemesis, hematochezia, melena. Denies any other acute problems. Patient has a history of chronic anemia. Is being worked up outpatient for this. Is due to receive iron transfusions but does not yet received these. Also has not yet seen any specialist for it. They did find a spot on his liver on the last admission and they are waiting up for outpatient workup for this. Patient otherwise feels well denies any chest pain, shortness of breath, abdominal pain, nausea, vomiting, weakness. Denies any bleeding source. Presents for further evaluation. Has required transfusions in the past. Hemoglobin typically around 7. Patient was seen as a quick note. I evaluated the patient when he was placed in room 21. (Winston Saucedo) - Related Data Home Medications Medication Instructions Recorded Confirmed Atorvastatin [Lipitor] 20 mg PO HS 12/22/18 09/30/23 Multivitamins, Thera [Multivitamin 1 tab PO DAILY 12/22/18 09/30/23 (formulary)] PARoxetine HCL [Paxil] 40 mg PO DAILY 12/22/18 09/30/23 Terazosin [Hytrin] 5 mg PO HS 12/22/18 09/30/23 lisinopriL 20 mg PO BID 12/22/18 09/30/23 Ferrous Sulfate [Iron (65 MG 325 mg PO DAILY 05/15/21 09/30/23 Elemental)] Cholecalciferol [Vitamin D3 (10 10 mcg PO DAILY 03/18/22 09/30/23 Mcg = 400 Iu)] Rivaroxaban [Xarelto] 20 mg PO W/SUPPER 03/18/22 09/30/23 Metoprolol Succinate (ER) [Toprol 75 mg PO DAILY 05/27/23 09/30/23 XL] Metoprolol Succinate (ER) [Toprol 50 mg PO HS 09/30/23 09/30/23 XL] Previous Rx's Medication Instructions Recorded Sodium Chloride Tab 1 gm PO DAILY #60 tab 10/05/23 Allergies Allergy/AdvReac Type Severity Reaction Status Date / Time No Known Allergies Allergy Verified 09/30/23 17:22 Review of Systems ROS Other: All systems not noted in ROS Statement are negative. <Kaycee Joel - Last Filed: 10/15/23 18:25> ROS Other: All systems not noted in ROS Statement are negative. <Winston Saucedo - Last Filed: 10/15/23 23:25> ROS Statement: Those systems with pertinent positive or pertinent negative responses have been documented in the HPI. Review of Systems: CONST: Denies fever EYES: Denies blurry vision ENT: Denies nasal congestion C/V: Denies Chest pain RESP: Denies shortness of breath GI: Denies abdominal pain : Denies dysuria SKIN: Denies rash. MSK: Denies joint pain. NEURO: Denies headache (Winston Saucedo) 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 History of Any Multi-Drug Resistant Organisms: None Reported Past Surgical History: Cardiac Ablation, Coronary Bypass/CABG, Orthopedic Surgery Additional Past Surgical History / Comment(s): "Had Aorta rebuilt in 2004", knee arthroscopy, right carpal tunnel release, 2 cardioversions Past Anesthesia/Blood Transfusion Reactions: No Reported Reaction Past Psychological History: Anxiety Smoking Status: Never smoker Past Alcohol Use History: None Reported Past Drug Use History: None Reported - Past Family History Mother History Unknown: Yes Family Medical History: No Reported History <Kaycee Joel - Last Filed: 10/15/23 18:25> General Exam Limitations: no limitations <Kaycee Joel - Last Filed: 10/15/23 18:25> <Winston Saucedo - Last Filed: 10/15/23 23:25> - General Exam Comments Initial Comments: Visual Physical Exam Vital signs reviewed General: Well-appearing, nontoxic, no acute distress. Head: Normocephalic, atraumatic Eyes: PERRLA, EOMI ENT: Airway patent Chest: Nonlabored breathing Skin: No visual rash, normal skin tone Neuro: Alert and oriented 3 Musculoskeletal: No gross abnormalities (Marycruz,Kaycee) General: Appears in no acute distress. HEAD: Normal with no signs of head trauma. EYES: PERRLA, EOMI, conjunctiva normal, no discharge. ENT: Hearing grossly intact, normal oropharynx. RESPIRATORY: Clear breath sounds bilaterally. No wheezes, rales, or rhonchi. C/V: Regular rate and rhythm. S1 and S2 auscultated, no edema, peripheral pulses 2+ and intact throughout ABD: Abd is soft, nontender, nondistended EXT: Normal range of motion, no obvious deformity SKIN: No rashes or lesions observed on exposed skin. NEURO: Alert and oriented x 4. (Winston Saucedo) Course Vital Signs 10/15/23 10/15/23 10/15/23 18:14 21:58 22:14 Temperature 98.2 F 99.2 F 99.3 F Pulse Rate 78 80 82 Respiratory 18 18 18 Rate Blood Pressure 158/83 153/91 151/100 O2 Sat by Pulse 96 93 L 93 L Oximetry 10/15/23 10/15/23 22:34 23:19 Temperature 99.5 F 98.8 F Pulse Rate 79 89 Respiratory 18 18 Rate Blood Pressure 164/86 168/106 O2 Sat by Pulse 93 L 97 Oximetry Medical Decision Making <Kaycee Joel - Last Filed: 10/15/23 18:25> - Lab Data Result diagrams: 10/15/23 19:58 10/15/23 19:58 - EKG Data -: EKG Interpreted by Me <Winston Saucedo - Last Filed: 10/15/23 23:25> - Medical Decision Making I completed the quick note portion of this chart signed Kaycee Joel PA-C (Kaycee Joel) Was pt. sent in by a medical professional or institution (, KONRAD, PILLING MACHINE OPERATOR, urgent care, hospital, or snf...) When possible be specific @ -Sent by his PCP, Dr. Bauer for hemoglobin being low and packed red blood cell transfusion. Did you speak to anyone other than the patient for history (EMS, parent, family, police, friend...)? What history was obtained from this source @ -Spoke with family members who are at bedside who assist with patient's recent past medical history and chronic anemia. Did you review nursing and triage notes (agree or disagree)? Why? @ -I reviewed and agree with nursing and triage notes Were old charts reviewed (outside hosp., previous admission, EMS record, old EKG, old radiological studies, urgent care reports/EKG's, snf records)? Report findings @ -Old charts reviewed Differential Diagnosis (chest pain, altered mental status, abdominal pain women, abdominal pain men, vaginal bleeding, weakness, fever, dyspnea, syncope, he adache, dizziness, GI bleed, back pain, seizure, CVA, palpatations, mental health, musculoskeletal)? @ -Chronic anemia, blood loss anemia, kidney disease, symptomatic anemia. This list is not all inclusive. EKG interpreted by me (3pts min.). @ -As above X-rays interpreted by me (1pt min.). @ -None done CT interpreted by me (1pt min.). @ -None done U/S interpreted by me (1pt. min.). @ -None done What testing was considered but not performed or refused? (CT, X-rays, U/S, labs)? Why? @ -None What meds were considered but not given or refused? Why? @ -None Did you discuss the management of the patient with other professionals (professionals i.e. , KONRAD, PILLING MACHINE OPERATOR, lab, RT, psych nurse, public health social worker, ski lift attendant, teacher, penal officer, bottle caser)? Give summary @ -No Was smoking cessation discussed for >3mins.? @ -No Was critical care preformed (if so, how long)? @ -No Were there social determinants of health that impacted care today? How? (Homelessness, low income, unemployed, alcoholism, drug addiction, transportation, low edu. Level, literacy, decrease access to med. care, chcf, rehab)? @ -No Was there de-escalation of care discussed even if they declined (Discuss DNR or withdrawal of care, Hospice)? DNR status @ -No What co-morbidities impacted this encounter? (DM, HTN, Smoking, COPD, CAD, Cancer, CVA, ARF, Chemo, Hep., AIDS, mental health diagnosis, sleep apnea, morbid obesity)? @ -Chronic anemia Was patient admitted / discharged? Hospital course, mention meds given and route, prescriptions, significant lab abnormalities, going to OR and other pertinent info. @ -Based on the patient's presentation and physical exam, I am concerned for what is likely chronic anemia for the patient. Patient was anemic at his outpatient appointment. We will obtain repeat labs. Originally seen as a quick note. He is asymptomatic. Denies hematochezia, melena, hematemesis. No source of bleeding and this is chronic and he is receiving outpatient follow-up. I did offer rectal exam which was declined at this time. Patient otherwise feels within acceptable limits. Vital signs within acceptable limits. No acute complaints. States he would know he was anemic other than his PCP telling him that. Presents for further evaluation. We will obtain basic labs, and if patient is anemic we will transfuse. Patient as well as family members in agreement this plan. I did offer rectal exam which was declined at this time. Imaging also declined and I believe this is reason able. Patient is on blood thinners however no source of obvious bleeding this is a chronic issue. Patient was in agreement this plan. Patient's family in agreement this plan. Laboratory studies remarkable for microcytic anemia with hemoglobin of 6.2. Patient is mildly hypokalemic at 3.3 which was replenished. Patient also has a slight KAYODE with an elevated creatinine of 1.59. On reevaluation, patient still remains asymptomatic. I discussed results with the patient as well as family. I did offer possible admission however we do agree that as long as patient has close follow-up with repeat labs I believe this is acceptable as well to check on the hemoglobin as well as the kidney function. They were in agreement this plan. Patient will be transfused 1 unit of packed red blood cells and discharged afterwards. Strict return precautions discussed. Patient given a small fluid bolus as well as potassium tablet. I instructed the patient to follow up with their PCP in the next 1-3 days. I explained that the patient should return to the emergency department if they experience any worsening symptoms. Strict return precautions were discussed with the patient. The patient expressed understanding of these instructions. I answered all questions that the patient had. The patient was discharged home in good condition with their prescriptions and follow up information. Undiagnosed new problem with uncertain prognosis? @ -No Drug Therapy requiring intensive monitoring for toxicity (Heparin, Nitro, Insulin, Cardizem)? @ -No Were any procedures done? @ -No Diagnosis/symptom? @ -Chronic microcytic anemia, hypokalemia Acute, or Chronic, or Acute on Chronic? @ -Acute on chronic Uncomplicated (without systemic symptoms) or Complicated (systemic symptoms)? @ -Uncomplicated Side effects of treatment? @ -None Exacerbation, Progression, or Severe Exacerbation] @ -No Poses a threat to life or bodily function? @ -Unlikely (Winston Saucedo) - Lab Data Lab Results 10/15/23 10/15/23 10/15/23 Range/Units 19:58 19:58 19:58 WBC 4.7 (3.8-10.6) k/uL RBC 2.54 L (4.30-5.90) m/uL Hgb 6.2 L* (13.0-17.5) gm/dL Hct 20.1 L (39.0-53.0) % MCV 79.2 L D (80.0-100.0) fL MCH 24.4 L (25.0-35.0) pg MCHC 30.9 L (31.0-37.0) g/dL RDW 17.4 H (11.5-15.5) % Plt Count 239 (150-450) k/uL MPV 8.5 Neutrophils % 80 % Lymphocytes % 11 % Monocytes % 7 % Eosinophils % 0 % Basophils % 0 % Neutrophils # 3.8 (1.3-7.7) k/uL Lymphocytes # 0.5 L (1.0-4.8) k/uL Monocytes # 0.3 (0-1.0) k/uL Eosinophils # 0.0 (0-0.7) k/uL Basophils # 0.0 (0-0.2) k/uL Hypochromasia Slight Anisocytosis Slight Microcytosis Slight PT 15.3 H (10.0-12.5) sec INR 1.5 H (<1.2) APTT 30.7 H (22.0-30.0) sec Sodium 136 L (137-145) mmol/L Potassium 3.3 L (3.5-5.1) mmol/L Chloride 105 (98-107) mmol/L Carbon Dioxide 22 (22-30) mmol/L Anion Gap 9 mmol/L BUN 24 H (9-20) mg/dL Creatinine 1.59 H (0.66-1.25) mg/dL Est GFR (CKD-EPI)AfAm 54 (>60 ml/min/1.73 sqM) Est GFR (CKD-EPI)NonAf 46 (>60 ml/min/1.73 sqM) Glucose 103 H (74-99) mg/dL Calcium 8.4 (8.4-10.2) mg/dL Total Bilirubin 1.0 (0.2-1.3) mg/dL AST 16 L (17-59) U/L ALT 11 (4-49) U/L Alkaline Phosphatase 66 (38-126) U/L Total Protein 6.1 L (6.3-8.2) g/dL Albumin 3.3 L (3.5-5.0) g/dL Blood Type Blood Type Recheck Bld Type Recheck Status Antibody Screen Crossmatch Spec Expiration Date 10/15/23 Range/Units 19:58 WBC (3.8-10.6) k/uL RBC (4.30-5.90) m/uL Hgb (13.0-17.5) gm/dL Hct (39.0-53.0) % MCV (80.0-100.0) fL MCH (25.0-35.0) pg MCHC (31.0-37.0) g/dL RDW (11.5-15.5) % Plt Count (150-450) k/uL MPV Neutrophils % % Lymphocytes % % Monocytes % % Eosinophils % % Basophils % % Neutrophils # (1.3-7.7) k/uL Lymphocytes # (1.0-4.8) k/uL Monocytes # (0-1.0) k/uL Eosinophils # (0-0.7) k/uL Basophils # (0-0.2) k/uL Hypochromasia Anisocytosis Microcytosis PT (10.0-12.5) sec INR (<1.2) APTT (22.0-30.0) sec Sodium (137-145) mmol/L Potassium (3.5-5.1) mmol/L Chloride (98-107) mmol/L Carbon Dioxide (22-30) mmol/L Anion Gap mmol/L BUN (9-20) mg/dL Creatinine (0.66-1.25) mg/dL Est GFR (CKD-EPI)AfAm (>60 ml/min/1.73 sqM) Est GFR (CKD-EPI)NonAf (>60 ml/min/1.73 sqM) Glucose (74-99) mg/dL Calcium (8.4-10.2) mg/dL Total Bilirubin (0.2-1.3) mg/dL AST (17-59) U/L ALT (4-49) U/L Alkaline Phosphatase (38-126) U/L Total Protein (6.3-8.2) g/dL Albumin (3.5-5.0) g/dL Blood Type A Positive Blood Type Recheck A Pos Bld Type Recheck Status No Antibody Screen NEGATIVE Crossmatch See Detail Spec Expiration Date 10/18/20232357 - EKG Data EKG Comments: 12-lead Electrocardiogram Interpretation Note EKG was reviewed and interpreted by myself. 12-lead ECG performed at 1852 is interpreted by me as revealing atrial fibrillation at a rate of 87 beats per minute. [place] is normal. QRS duration is 113 ms, QTc is 456 ms.. There were no ST or T wave abnormalities to suggest myocardial ischemia or injury. R wave progression across the precordium was satisfactory. By my interpretation this EKG is non-diagnostic for acute ischemia. (Winston Saucedo) Disposition <Kaycee Joel - Last Filed: 10/15/23 18:25> Is patient prescribed a controlled substance at d/c from ED?: No Time of Disposition: 21:30 <Winston Saucedo - Last Filed: 10/15/23 23:25> Clinical Impression: Hypokalemia, Microcytic anemia Disposition: HOME SELF-CARE Condition: Fair Instructions (If sedation given, give patient instructions): Anemia (ED) Referrals: Haile Bauer DO [Primary Care Provider] - 1-2 days
[2023-10-15 20:35] LABS: ALT 11 U/L (4-49); AST 16 U/L (17-59); African American GFR (CKD) 54 (>60 ml/min/1.73 sqM); Albumin 3.3 g/dL (3.5-5.0); Alkaline Phosphatase 66 U/L (38-126); Anion Gap 9 mmol/L; Blood Urea Nitrogen 24 mg/dL (9-20); Calcium 8.4 mg/dL (8.4-10.2); Carbon Dioxide 22 mmol/L (22-30); Chloride 105 mmol/L (98-107); Glucose 103 mg/dL (74-99); Non-African American GFR(CKD) 46 (>60 ml/min/1.73 sqM); Potassium 3.3 mmol/L (3.5-5.1); Sodium 136 mmol/L (137-145); Total Protein 6.1 g/dL (6.3-8.2)
[2023-10-15 20:37] LABS: Anisocytosis Slight; Basophils % (A) 0 %; Eosinophils % (A) 0 %; HCT 20.1 % (39.0-53.0); Hypochromasia Slight; Lymphocytes # (A) 0.5 k/uL (1.0-4.8); Lymphocytes % (A) 11 %; MCH 24.4 pg (25.0-35.0); MCHC 30.9 g/dL (31.0-37.0); Mean Platelet Volume 8.5; Microcytosis Slight; Monocytes # (A) 0.3 k/uL (0-1.0); Monocytes % (A) 7 %; Neutrophils # (A) 3.8 k/uL (1.3-7.7); Neutrophils % (A) 80 %; Platelet Count 239 k/uL (150-450); RBC 2.54 m/uL (4.30-5.90); RDW 17.4 % (11.5-15.5); WBC 4.7 k/uL (3.8-10.6)
[2023-10-15 20:42] LABS: INR 1.5 (<1.2); Partial Thromboplastin Time 30.7 sec (22.0-30.0); Prothrombin Time 15.3 sec (10.0-12.5)
[2023-10-15 20:46] LABS: HGB 6.2 gm/dL (13.0-17.5); MCV 79.2 fL (80.0-100.0)
[2023-10-15] MEDS: POTASSIUM CHLORIDE ER 20 MEQ TAB.ER PO STA (21:26)
[2023-10-15] MEDS: SODIUM CHLORIDE 0.9% 500 ML 500 ML IV STA (21:27)
[2023-10-16 00:31] VITALS: BP 156/108; PULSE 76; TEMP 98.4
== END 2023-10-16 00:31 | disposition home or self-care (01) ==
LOC: EC 17:53
DX: D50.9 Iron deficiency anemia, unspecified (principal); E87.6 Hypokalemia; N17.9 Acute kidney failure, unspecified; I48.91 Unspecified atrial fibrillation; Z79.01 Long term (current) use of anticoagulants
CPT/HCPCS: 36415; 93005; 86900; 86901; 80053; 85025; 85610; 85730; 86850; 86920; 99284; 36430; P9016

== ENCOUNTER 2023-10-20 14:31 | Inpatient (IN) | payer MEDICARE ==
--- NOTE | 2023-10-20 14:53 | ED ---
General Adult HPI - General Source: patient, family, RN notes reviewed Mode of arrival: ambulatory Limitations: no limitations <Mackenzie Moreno - Last Filed: 10/20/23 14:51> <Danny Wallace - Last Filed: 10/20/23 18:20> - General Stated complaint: Needs blood transfusion Time Seen by Provider: 10/20/23 14:51 - History of Present Illness Initial comments: Quick note: 62-year-old male presented to the ER with chief complaint of low hemoglobin. Patient sent by Dr. Bauer as lab revealed a hbg of 6.4. Patient denies any current complaints or pain. (Mackenzie Moreno) Dictation was produced using [employer] dictation software. please excuse any grammatical, word or spelling errors. Chief Complaint: 62-year-old male presents to the ER for anemia History of Present Illness: Patient 62-year-old male presents emergency department for anemia. He was told by his primary care doctor to come to the emergency department for blood transfusion. Patient had outpatient blood work showing hemoglobin of 6.2. He did follow-up with GI specialist with plans for further outpatient workup to determine possible GI bleed. Patient denies any black or bloody stools. Patient has no complaints. States that he feels at baseline. The ROS documented in this emergency department record has been reviewed and confirmed by me. Those systems with pertinent positive or negative responses have been documented in the HPI. All other systems are other negative and/or noncontributory. (Danny Wallace) - Related Data Home Medications Medication Instructions Recorded Confirmed Atorvastatin [Lipitor] 20 mg PO HS 12/22/18 10/20/23 Multivitamins, Thera [Multivitamin 1 tab PO DAILY 12/22/18 10/20/23 (formulary)] PARoxetine HCL [Paxil] 40 mg PO DAILY 12/22/18 10/20/23 Terazosin [Hytrin] 5 mg PO HS 12/22/18 10/20/23 lisinopriL 20 mg PO BID 12/22/18 10/20/23 Ferrous Sulfate [Iron (65 MG 325 mg PO DAILY 05/15/21 10/20/23 Elemental)] Cholecalciferol [Vitamin D3 (10 10 mcg PO DAILY 03/18/22 10/20/23 Mcg = 400 Iu)] Rivaroxaban [Xarelto] 20 mg PO W/SUPPER 03/18/22 10/20/23 Metoprolol Succinate (ER) [Toprol 75 mg PO DAILY 05/27/23 10/20/23 XL] Metoprolol Succinate (ER) [Toprol 50 mg PO HS 09/30/23 10/20/23 XL] Previous Rx's Medication Instructions Recorded Sodium Chloride Tab 1 gm PO DAILY #60 tab 10/05/23 Allergies Allergy/AdvReac Type Severity Reaction Status Date / Time No Known Allergies Allergy Verified 10/20/23 15:14 Review of Systems ROS Other: All systems not noted in ROS Statement are negative. <Mackenzie Moreno - Last Filed: 10/20/23 14:51> ROS Other: All systems not noted in ROS Statement are negative. <Danny Wallace - Last Filed: 10/20/23 18:20> ROS Statement: Those systems with pertinent positive or pertinent negative responses have been documented in the HPI. 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 History of Any Multi-Drug Resistant Organisms: None Reported Past Surgical History: Cardiac Ablation, Coronary Bypass/CABG, Orthopedic Surger y Additional Past Surgical History / Comment(s): "Had Aorta rebuilt in 2004", knee arthroscopy, right carpal tunnel release, 2 cardioversions Past Anesthesia/Blood Transfusion Reactions: No Reported Reaction Past Psychological History: Anxiety Smoking Status: Never smoker Past Alcohol Use History: None Reported Past Drug Use History: None Reported - Past Family History Mother History Unknown: Yes Family Medical History: No Reported History <Mackenzie Moreno - Last Filed: 10/20/23 14:51> General Exam <Mackenzie Moreno - Last Filed: 10/20/23 14:51> <Danny Wallace - Last Filed: 10/20/23 18:20> - General Exam Comments Initial Comments: Visual Physical Exam General: Well-appearing, mildly jaundice Head: Normocephalic, atraumatic Eyes: PERRLA, EOMI ENT: Airway patent Chest: Nonlabored breathing Skin: No visual rash Neuro: Alert and oriented 3 Musculoskeletal: No gross abnormalities (Mackenzie Moreno) PHYSICAL EXAM: General Impression: Alert and oriented x3, not in acute distress HEENT: Normocephalic atraumatic, extra-ocular movements intact, pupils equal and reactive to light bilaterally, mucous membranes moist. Cardiovascular: Heart regular rate and rhythm Chest: Able to complete full sentences, no retractions, no tachypnea Abdomen: abdomen soft, non-tender, non-distended, no organomegaly Musculoskeletal: Pulses present and equal in all extremities, no peripheral edema Motor: no focal deficits noted Neurological: CN II-XII grossly intact, no focal motor or sensory deficits noted Skin: Intact with no visualized rashes Psych: Normal affect and mood (Danny Wallace) Course Vital Signs 10/20/23 15:11 Temperature 98.3 F Pulse Rate 82 Respiratory 16 Rate Blood Pressure 143/87 O2 Sat by Pulse 97 Oximetry Medical Decision Making <Mackenzie Moreno - Last Filed: 10/20/23 14:51> - Lab Data Result diagrams: 10/20/23 15:30 10/20/23 15:30 <Danny Wallace - Last Filed: 10/20/23 18:20> - Medical Decision Making I performed the quick note portion of this chart. Electronically signed by Mackenzie Moreno PA-C (Mackenzie Moreno) Was pt. sent in by a medical professional or institution (KONRAD Cruz, DIGITAL ART DIRECTOR, urgent care, hospital, or care home...) When possible be specific @ -No Did you speak to anyone other than the patient for history (EMS, parent, family, police, friend...)? What history was obtained from this source @ -No Did you review nursing and triage notes (agree or disagree)? Why? @ -I reviewed and agree with nursing and triage notes Were old charts reviewed (outside hosp., previous admission, EMS record, old EKG, old radiological studies, urgent care reports/EKG's, care home records)? Report findings @ -Outside labs were reviewed showing anemia Differential Diagnosis (chest pain, altered mental status, abdominal pain women, abdominal pain men, vaginal bleeding, musculoskeletal, weakness, fever, dyspnea, syncope, headache, dizziness, GI bleed, back pain, seizure, CVA, palpatations, mental health)? @ -Not applicable EKG interpreted by me (3pts min.). @ -None done X-rays interpreted by me (1pt min.). @ -None done CT interpreted by me (1pt min.). @ -None done U/S interpreted by me (1pt. min.). @ -None done What testing was considered but not performed or refused? (CT, X-rays, U/S, labs)? Why? @ -None What meds were considered but not given or refused? Why? @ -None Did you discuss the management of the patient with other professionals (professionals i.e. , PA, DIGITAL ART DIRECTOR, lab, RT, psych nurse, nephrology social worker, mobile home lot utility worker, teacher, retirement officer, field nurse case manager)? Give summary @ -No Was smoking cessation discussed for >3mins.? @ -No Was critical care preformed (if so, how long)? @ -No Were there social determinants of health that impacted care today? How? (Homelessness, low income, unemployed, alcoholism, drug addiction, transportation, low edu. Level, literacy, decrease access to med. care, retirement, rehab)? @ -No Was there de-escalation of care discussed even if they declined (Discuss DNR or withdrawal of care, Hospice)? DNR status @ -No What co-morbidities impacted this encounter? (DM, HTN, Smoking, COPD, CAD, Canc er, CVA, ARF, Chemo, Hep., AIDS, mental health diagnosis, sleep apnea, morbid obesity)? @ -None Was patient admitted / discharged? Hospital course, mention meds given and route, prescriptions, significant lab abnormalities, going to OR and other pertinent info. @ -62-year-old male presents emergency department for outpatient labs that were found to show anemia. Vital signs upon arrival are within acceptable limits. Vital laboratory evaluation showed hemoglobin 6.9. Rest of labs negative. Patient denies any black or bloody stools. Patient ordered for 1 unit of blood transfusion. Family request admission with consultation to GI. Undiagnosed new problem with uncertain prognosis? @ -No Drug Therapy requiring intensive monitoring for toxicity (Heparin, Nitro, Insu lois, Cardizem)? @ -No Were any procedures done? @ -No Diagnosis/symptom? Acute, or Chronic, or Acute on Chronic? Uncomplicated (without systemic symptoms) or Complicated (systemic symptoms)? @ -Anemia, no obvious source Side effects of treatment? @ -No Exacerbation, Progression, or Severe Exacerbation? @ -No Poses a threat to life or bodily function? How? (Chest pain, USA, DC, pneumonia, PE, COPD, DKA, ARF, appy, cholecystitis, CVA, Diverticulitis, Homicidal, Suicidal, threat to staff... and all critical care pts) @ -Yes (Danny Wallace) - Lab Data Lab Results 10/20/23 10/20/23 10/20/23 Range/Units 15:20 15:25 15:30 WBC 3.9 (3.8-10.6) k/uL RBC 2.75 L (4.30-5.90) m/uL Hgb 6.9 L* (13.0-17.5) gm/dL Hct 22.5 L (39.0-53.0) % MCV 82.1 (80.0-100.0) fL MCH 25.2 (25.0-35.0) pg MCHC 30.7 L (31.0-37.0) g/dL RDW 17.1 H (11.5-15.5) % Plt Count 304 (150-450) k/uL MPV 8.0 Hypochromasia Marked Poikilocytosis Slight Anisocytosis Slight Retic Count 3.8 H (0.5-2.0) % PT 13.0 H (10.0-12.5) sec INR 1.2 H (<1.2) APTT 21.1 L (22.0-30.0) sec Sodium (137-145) mmol/L Potassium (3.5-5.1) mmol/L Chloride (98-107) mmol/L Carbon Dioxide (22-30) mmol/L Anion Gap mmol/L BUN (9-20) mg/dL Creatinine (0.66-1.25) mg/dL Est GFR (CKD-EPI)AfAm (>60 ml/min/1.73 sqM) Est GFR (CKD-EPI)NonAf (>60 ml/min/1.73 sqM) Glucose (74-99) mg/dL Calcium (8.4-10.2) mg/dL Total Bilirubin (0.2-1.3) mg/dL AST (17-59) U/L ALT (4-49) U/L Alkaline Phosphatase (38-126) U/L Total Protein (6.3-8.2) g/dL Albumin (3.5-5.0) g/dL Blood Type A Positive Blood Type Recheck A Pos Bld Type Recheck Status No Antibody Screen NEGATIVE Spec Expiration Date 10/23/2023 - 232410/20/23 Range/Units 15:30 WBC (3.8-10.6) k/uL RBC (4.30-5.90) m/uL Hgb (13.0-17.5) gm/dL Hct (39.0-53.0) % MCV (80.0-100.0) fL MCH (25.0-35.0) pg MCHC (31.0-37.0) g/dL RDW (11.5-15.5) % Plt Count (150-450) k/uL MPV Hypochromasia Poikilocytosis Anisocytosis Retic Count (0.5-2.0) % PT (10.0-12.5) sec INR (<1.2) APTT (22.0-30.0) sec Sodium 140 (137-145) mmol/L Potassium 3.9 (3.5-5.1) mmol/L Chloride 108 H (98-107) mmol/L Carbon Dioxide 24 (22-30) mmol/L Anion Gap 8 mmol/L BUN 24 H (9-20) mg/dL Creatinine 1.41 H (0.66-1.25) mg/dL Est GFR (CKD-EPI)AfAm 62 (>60 ml/min/1.73 sqM) Est GFR (CKD-EPI)NonAf 54 (>60 ml/min/1.73 sqM) Glucose 86 (74-99) mg/dL Calcium 8.6 (8.4-10.2) mg/dL Total Bilirubin 1.4 H (0.2-1.3) mg/dL AST 19 (17-59) U/L ALT 13 (4-49) U/L Alkaline Phosphatase 75 (38-126) U/L Total Protein 6.4 (6.3-8.2) g/dL Albumin 3.5 (3.5-5.0) g/dL Blood Type Blood Type Recheck Bld Type Recheck Status Antibody Screen Spec Expiration Date Disposition <Mackenzie Moreno - Last Filed: 10/20/23 14:51> Decision Time: 18:20 <Danny Wallace - Last Filed: 10/20/23 18:20> Clinical Impression: Anemia Disposition: ADMITTED IP TO THIS HOSP Condition: Fair Referrals: Haile Bauer DO [Primary Care Provider] - 1-2 days
[2023-10-20 15:50] LABS: Anisocytosis Slight; HCT 22.5 % (39.0-53.0); Hypochromasia Marked; MCH 25.2 pg (25.0-35.0); MCHC 30.7 g/dL (31.0-37.0); MCV 82.1 fL (80.0-100.0); Platelet Count 304 k/uL (150-450); Poikilocytosis Slight; RBC 2.75 m/uL (4.30-5.90); RDW 17.1 % (11.5-15.5); Reticulocyte % 3.8 % (0.5-2.0); WBC 3.9 k/uL (3.8-10.6)
[2023-10-20 15:56] LABS: HGB 6.9 gm/dL (13.0-17.5)
[2023-10-20 15:58] LABS: ALT 13 U/L (4-49); AST 19 U/L (17-59); African American GFR (CKD) 62 (>60 ml/min/1.73 sqM); Albumin 3.5 g/dL (3.5-5.0); Alkaline Phosphatase 75 U/L (38-126); Anion Gap 8 mmol/L; Blood Urea Nitrogen 24 mg/dL (9-20); Calcium 8.6 mg/dL (8.4-10.2); Carbon Dioxide 24 mmol/L (22-30); Chloride 108 mmol/L (98-107); Glucose 86 mg/dL (74-99); Non-African American GFR(CKD) 54 (>60 ml/min/1.73 sqM); Potassium 3.9 mmol/L (3.5-5.1); Sodium 140 mmol/L (137-145); Total Bilirubin 1.4 mg/dL (0.2-1.3); Total Protein 6.4 g/dL (6.3-8.2)
[2023-10-20 16:08] LABS: INR 1.2 (<1.2)
[2023-10-20 16:41] LABS: Partial Thromboplastin Time 21.1 sec (22.0-30.0)
[2023-10-20] MEDS ORDERED: NALOXONE 0.4 MG/ML 1 ML VIAL IV PRN (18:06)
[2023-10-20] MEDS: PANTOPRAZOLE 40 MG/10 ML VIAL IVP STA (18:25)
[2023-10-20] MEDS: SODIUM CHLORIDE 0.9% 1,000 ML IV SCH (18:25)
[2023-10-20] MEDS: METOPROLOL SUCCINATE (ER) 50 MG TAB.ER.24H PO SCH (20:23)
[2023-10-20] MEDS: ATORVASTATIN 20 MG TAB PO SCH (20:24)
[2023-10-20] MEDS: lisinopriL 20 MG TAB PO SCH (20:24)
[2023-10-21 04:08] LABS: Anisocytosis Slight; Basophils % (A) 0 %; Eosinophils % (A) 1 %; HCT 23.3 % (39.0-53.0); HGB 7.2 gm/dL (13.0-17.5); Hypochromasia Moderate; Lymphocytes # (A) 0.5 k/uL (1.0-4.8); Lymphocytes % (A) 12 %; MCH 25.1 pg (25.0-35.0); MCV 81.2 fL (80.0-100.0); Mean Platelet Volume 8.6; Microcytosis Slight; Monocytes # (A) 0.2 k/uL (0-1.0); Monocytes % (A) 5 %; Neutrophils # (A) 3.8 k/uL (1.3-7.7); Neutrophils % (A) 82 %; Platelet Count 302 k/uL (150-450); Poikilocytosis Slight; RBC 2.87 m/uL (4.30-5.90); RDW 17.3 % (11.5-15.5); WBC 4.7 k/uL (3.8-10.6)
[2023-10-21 04:20] LABS: % Iron Saturation 6.58 (15.00-50.00); Ferritin 97.3 ng/mL (22.0-322.0); Iron 21 UG/DL (65-175); Total Iron Binding Capacity 319 UG/DL (228-460)
[2023-10-21] MEDS: METOPROLOL SUCCINATE (ER) 25 MG TAB.ER.24H PO SCH (08:59)
--- NOTE | 2023-10-21 12:00 | P.CONS ---
History of Present Illness - Reason for Consult Consult date: 10/21/23 Anemia, ? GI bleed Requesting physician: Danny Wallace - Chief Complaint Abnormal labs - History of Present Illness This is a pleasant 62-year-old male with a history of Marfan syndrome, cognitive impairment atrial fibrillation on Xarelto who was seen yesterday by [facility] oenterology as a outpatient follow-up from a recent admission for anemia and possible liver mass. He had outpatient blood work done and was called by his PCP Dr. Bauer for concerns of a low hemoglobin of 6.4 and was told to come to the emergency department for further evaluation. Apparently patient has not been having any signs or symptoms of GI bleed. No black stool or blood in the stool reported. According to chart last reported colonoscopy was about 2 years ago which was reported as normal. No previous EGD. During his last admission 09/30/2023 through 10-27 he was noted to have some jaundice and had a CT of the abdomen pelvis as well as ultrasound of the abdomen. Was noted as a solid lesion in the right lobe of the liver measuring 4.5 x 4.0 x 3.9 cm. Oncology was consulted at that time they recommended outpatient follow-up with gastroenterology for anemia and outpatient MRI of the liver. Patient has yet to get that MRI done. He denies any abdominal pain, nausea or vomiting at this time. Review of Systems REVIEW OF SYSTEMS: CARDIOPULMONARY: No chest pain or shortness of breath. Gastrointestinal: No abdominal pain. No nausea or vomiting. No hematemesis, coffee-ground emesis. No rectal bleeding, or melena. GENITOURINARY: No dysuria or hematuria. MUSCULOSKELETAL: Reports normal range of motion. SKIN: No rashes. Jaundice. ENDOCRINE: No chills, fevers. No excessive weight gain or loss. No polydipsia or polyuria. PSYCHIATRIC: Unremarkable. NEUROLOGY: No change in mental status. Denies dizziness, headache. ENT: Vision unremarkable. CONSTITUTIONAL: No recent weight loss. No fever, chills, night sweats. 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 History of Any Multi-Drug Resistant Organisms: None Reported Past Surgical History: Cardiac Ablation, Coronary Bypass/CABG, Orthopedic Surgery Additional Past Surgical History / Comment(s): "Had Aorta rebuilt in 2004", knee arthroscopy, right carpal tunnel release, 2 cardioversions Past Anesthesia/Blood Transfusion Reactions: No Reported Reaction Past Psychological History: Anxiety Smoking Status: Never smoker Past Alcohol Use History: None Reported Past Drug Use History: None Reported - Past Family History Mother History Unknown: Yes Family Medical History: No Reported History Medications and Allergies Home Medications Medication Instructions Recorded Confirmed Type Atorvastatin [Lipitor] 20 mg PO HS 12/22/18 10/20/23 History Multivitamins, Thera [Multivitamin 1 tab PO DAILY 12/22/18 10/20/23 History (formulary)] PARoxetine HCL [Paxil] 40 mg PO DAILY 12/22/18 10/20/23 History Terazosin [Hytrin] 5 mg PO HS 12/22/18 10/20/23 History lisinopriL 20 mg PO BID 12/22/18 10/20/23 History Ferrous Sulfate [Iron (65 MG 325 mg PO DAILY 05/15/21 10/20/23 History Elemental)] Cholecalciferol [Vitamin D3 (10 10 mcg PO DAILY 03/18/22 10/20/23 History Mcg = 400 Iu)] Rivaroxaban [Xarelto] 20 mg PO W/SUPPER 03/18/22 10/20/23 History Metoprolol Succinate (ER) [Toprol 75 mg PO DAILY 05/27/23 10/20/23 History XL] Metoprolol Succinate (ER) [Toprol 50 mg PO HS 09/30/23 10/20/23 History XL] Sodium Chloride Tab 1 gm PO DAILY #60 tab 10/05/23 10/20/23 Rx Allergies Allergy/AdvReac Type Severity Reaction Status Date / Time No Known Allergies Allergy Verified 10/20/23 15:14 Physical Exam Vitals: Vital Signs Temp Pulse Resp BP Pulse Ox 10/21/23 09:57 160/110 10/21/23 08:57 91 16 168/116 97 10/21/23 07:02 91 16 166/112 10/21/23 01:30 68 18 158/96 97 10/20/23 21:00 68 16 168/99 97 10/20/23 19:07 98.1 F 77 18 169/116 97 10/20/23 18:47 98.2 F 78 16 163/117 97 10/20/23 18:37 98.4 F 79 16 175/97 98 10/20/23 15:11 98.3 F 82 16 143/87 97 Intake and Output 10/20/23 10/21/23 10/21/23 22:59 06:59 14:59 Intake Total 310 Balance 310 Intake: Blood Product 310 Rc As-1 Unit 310 [id number] Other: # Voids 2 Weight 105.233 kg General appearance: The patient is alert, oriented, appears in no acute distress. HET: Head is normocephalic and atraumatic. Conjunctiva pink. Sclera anicteric. Neck: Supple without lymphadenopathy. Trachea midline. Heart: Regular. Lungs: Equal expansion, normal respiratory effort. Abdomen: Soft, nontender, nondistended with bowel sounds. No guarding or rigidity. Skin: No rashes. Mild jaundice. Extremities: Normal skin color and turgor. No pedal edema. Neurological: Cognitive impairment. Results CBC & Chem 7: 10/21/23 03:48 10/20/23 15:30 Labs: Abnormal Lab Results - Last 24 Hours (Table) 10/20/23 10/20/23 10/20/23 Range/Units 15:20 15:25 15:30 RBC 2.75 L (4.30-5.90) m/uL Hgb 6.9 L* (13.0-17.5) gm/dL Hct 22.5 L (39.0-53.0) % MCHC 30.7 L (31.0-37.0) g/dL RDW 17.1 H (11.5-15.5) % Lymphocytes # (1.0-4.8) k/uL Retic Count 3.8 H (0.5-2.0) % PT 13.0 H (10.0-12.5) sec INR 1.2 H (<1.2) APTT 21.1 L (22.0-30.0) sec Chloride (98-107) mmol/L BUN (9-20) mg/dL Creatinine (0.66-1.25) mg/dL Iron (65-175) UG/DL % Saturation (15.00-50.00) Total Bilirubin (0.2-1.3) mg/dL Folate (4.40-31.00) ng/mL Crossmatch See Detail 10/20/23 10/20/23 10/21/23 Range/Units 15:30 15:30 03:48 RBC 2.87 L (4.30-5.90) m/uL Hgb 7.2 L (13.0-17.5) gm/dL Hct 23.3 L (39.0-53.0) % MCHC (31.0-37.0) g/dL RDW 17.3 H (11.5-15.5) % Lymphocytes # 0.5 L (1.0-4.8) k/uL Retic Count (0.5-2.0) % PT (10.0-12.5) sec INR (<1.2) APTT (22.0-30.0) sec Chloride 108 H (98-107) mmol/L BUN 24 H (9-20) mg/dL Creatinine 1.41 H (0.66-1.25) mg/dL Iron 21 L (65-175) UG/DL % Saturation 6.58 L (15.00-50.00) Total Bilirubin 1.4 H (0.2-1.3) mg/dL Folate 32.70 H (4.40-31.00) ng/mL Crossmatch Assessment and Plan (1) Anemia Narrative/Plan: 62-year-old male who has been admitted recently with abdominal pain and, 20 to 40 pound weight loss who had been found anemic requiring blood transfusion. He has been being monitored for anemia. No previous history of GI bleed. Denies any symptoms of GI bleed. This patient who has history of atrial fibrillation on anticoagulation. Has a normocytic normochromic anemia. Iron studies were ordered and he is iron deficient ferritin 97.3. He is getting iron infusion. Unclear etiology of anemia. No previous upper endoscopy last reported colonoscopy about 2 years ago. Will tentatively plan for upper and lower endo scopy this Thursday. Current Visit: Yes Status: Acute Priority: High Code(s): D64.9 - ANEMIA, UNSPECIFIED SNOMED Code(s): 899444242 (2) Liver lesion Narrative/Plan: Liver lesion/nodule seen on previous abdominal ultrasound with recommendation for outpatient MRI and follow-up with oncology. Mildly elevated bilirubin, no other LFT elevation. Patient has yet to have MRI completed. Will order during this hospitalization and reconsult oncology. Current Visit: Yes Status: Acute Code(s): K76.9 - LIVER DISEASE, UNSPECIFIED SNOMED Code(s): 969282360 (3) Acute kidney injury Current Visit: Yes Status: Acute Code(s): N17.9 - ACUTE KIDNEY FAILURE, UNSPECIFIED SNOMED Code(s): 69304210 (4) Marfan syndrome Current Visit: Yes Status: Acute Code(s): Q87.40 - MARFAN SYNDROME, UNSPECIFIED SNOMED Code(s): 89132396 (5) Cognitive impairment Current Visit: Yes Status: Acute Code(s): R41.89 - OTH SYMPTOMS AND SIGNS W COGNITIVE FUNCTIONS AND AWARENESS SNOMED Code(s): 750337324 (6) A-fib Narrative/Plan: Hold anticoagulation Current Visit: No Status: Acute Code(s): I48.91 - UNSPECIFIED ATRIAL FIBRILLATION SNOMED Code(s): 03292270 Plan: 1. Continue symptomatic and supportive care 2. Hold anticoagulation 3. Daily CBC, transfuse for hemoglobin less than 7 4. AFP ordered 5. MRI liver ordered for possible liver mass 6. Consult to oncology/hematology 7. Patient may have regular diet, clear liquids tomorrow 8. Will start bowel prep tomorrow 9. Plan for EGD and colonoscopy on Thursday 10. Rest of medical management per primary medical team Thank you for this consultation, we will continue to follow. Dr. Dandre Davenport I agree with the dictator's note, documented as a scribe by Celeste Hernandez.
[2023-10-21] MEDS: SODIUM FERRIC GLUCONAT-SUCROSE 125 MG in SODIUM CHLORIDE 0.9% 100 ML IVPB SCH (13:33)
[2023-10-21] MEDS: PANTOPRAZOLE 40 MG/10 ML VIAL IVP SCH (13:36)
[2023-10-21] MEDS: amLODIPine 10 MG TAB PO SCH (13:36)
--- NOTE | 2023-10-21 14:35 | MR ---
EXAMINATION TYPE: MR liver wo/w con DATE OF EXAM: 10/21/2023 1:14 PM CLINICAL INDICATION:Male, 62 years old with history of evaluate for liver mass; PHH, Abnormal imaging . COMPARISON: Multiple CTs most recent 09/30/2023 and dating back to 2017. TECHNIQUE: Multiplanar multi-sequence imaging was performed without contrast. Post contrast imaging was performed. Post IV contrast subtraction images were also submitted for review. IV Contrast: 10.5 cc Gadavist FINDINGS: LOWER CHEST: Small pleural effusions are seen bilaterally right greater than left. ABDOMEN Liver: No evidence for hepatic steatosis or cirrhosis. Observation segment 5 predominantly higher T2 low T1 signal with no arterial peripheral enhancement which becomes progressive on delayed imaging.. This never completely fills in on the most delayed imaging. Measures up to 40 x 34 mm. Additional les ion in segment 7 also visualized with peripheral nodular enhancement measuring up to 16 mm. The enhan cement pattern of the liver is heterogenous. Gallbladder and Bile ducts: No evidence for ductal dilation, or biliary stricture or evidence of chol edocholithiasis. The gallbladder is within normal limits. Pancreas: No ductal dilation. No evidence for solid mass. Spleen: Normal for size. Adrenal glands: Unremarkable. Kidneys: No evidence for obstructive uropathy. No suspicious renal masses. Stomach and Bowel: No evidence for bowel wall thickening or evidence for obstruction. Retroperitoneum/Peritoneum: No evidence of pneumoperitoneum or free fluid. Vasculature: No aortic aneurysm. Musculoskeletal: The osseous structures appear intact. Lymph Nodes: No gross evidence for lymphadenopathy. Abdominal wall: Unremarkable. IMPRESSION: Evaluation limited by respiratory motion. 1. Heterogenous signal/enhancement pattern to the liver most likely secondary to congestive heart fa ilure given evidence of cardiomegaly and bilateral pleural effusions. 2. Observation in the right hepatic lobe segment 5 and segment 7 with peripheral enhancement is inde terminate. While the enhancement pattern is relatively indeterminate either favored represent hemangi omas/atypical hemangiomas. These have been seen dating back to at least 2017 although slightly larger in size in today's exam particularly the segment 5 lesion. Consider follow-up in [address] li jose d mass protocol given patient's inability to breathe.
--- NOTE | 2023-10-21 18:53 | P.CONS ---
History of Present Illness - Reason for Consult Consult date: 10/21/23 anemia, ?liver mass Requesting physician: Celeste Dozier - Chief Complaint needing transfusion for anemia - History of Present Illness Patient is a 62-year-old white male with PMH of marfan syndrome, cognitive impairment, and afib on Xarelto. We were consulted about 2 weeks ago for anemia and suspicious liver mass on US. He was sent in by urgent care for jaundice. CT AP showed no acute processes. Liver had diffuse variable density suggesting liver disease such as cirrhosis or hepatitis. UA abd showed hepatomegaly with mild fatty liver infiltration and a solid lesion within the right lobe of the liver measuring 4.5 x 4.0 x 3.9 cm. On admission bilirubin was elevated at 1.6. LFTs, amylase and lipase normal. Acute hepatitis panel negative. CEA and AFP tumor markers normal. Plan was for MRI liver outpt-was sched for next week. Pt had referral to GI for anemia and saw Dr. Davenport yesterday, they discussed possible endoscopy. Legal guardian at bedside. Pt is back in ER today for PRBC transfusion. Pt denies fever, N,V, SOB, diarrhea, constipation or bleeding. He has lost about 30lbs in the last month. Last colonoscopy was approximately 2 years ago which was normal. He has never had an EGD. Hgb 6.9 on admit, plans for 1 unit PRBCs. Anemia work up a few weeks ago did show deficiency. Iron studies are still significantly low so IV iron ordered. Bilirubin is persistently elevated but not worse then last visit. 10/01/2023 AFP less than 3, CEA less than 2, PSA 0.3 ng/mL 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 History of Any Multi-Drug Resistant Organisms: None Reported Past Surgical History: Cardiac Ablation, Coronary Bypass/CABG, Orthopedic Surgery Additional Past Surgical History / Comment(s): "Had Aorta rebuilt in 2004", knee arthroscopy, right carpal tunnel release, 2 cardioversions Past Anesthesia/Blood Transfusion Reactions: No Reported Reaction Past Psychological History: Anxiety Smoking Status: Never smoker Past Alcohol Use History: None Reported Past Drug Use History: None Reported - Past Family History Mother History Unknown: Yes Family Medical History: No Reported History Medications and Allergies Home Medications Medication Instructions Recorded Confirmed Type Atorvastatin [Lipitor] 20 mg PO HS 12/22/18 10/20/23 History Multivitamins, Thera [Multivitamin 1 tab PO DAILY 12/22/18 10/20/23 History (formulary)] PARoxetine HCL [Paxil] 40 mg PO DAILY 12/22/18 10/20/23 History Terazosin [Hytrin] 5 mg PO HS 12/22/18 10/20/23 History lisinopriL 20 mg PO BID 12/22/18 10/20/23 History Ferrous Sulfate [Iron (65 MG 325 mg PO DAILY 05/15/21 10/20/23 History Elemental)] Cholecalciferol [Vitamin D3 (10 10 mcg PO DAILY 03/18/22 10/20/23 History Mcg = 400 Iu)] Rivaroxaban [Xarelto] 20 mg PO W/SUPPER 03/18/22 10/20/23 History Metoprolol Succinate (ER) [Toprol 75 mg PO DAILY 05/27/23 10/20/23 History XL] Metoprolol Succinate (ER) [Toprol 50 mg PO HS 09/30/23 10/20/23 History XL] Sodium Chloride Tab 1 gm PO DAILY #60 tab 10/05/23 10/20/23 Rx Allergies Allergy/AdvReac Type Severity Reaction Status Date / Time No Known Allergies Allergy Verified 10/20/23 15:14 Physical Exam Vitals: Vital Signs Temp Pulse Resp BP Pulse Ox 10/21/23 09:57 160/110 10/21/23 08:57 91 16 168/116 97 10/21/23 07:02 91 16 166/112 10/21/23 01:30 68 18 158/96 97 10/20/23 21:00 68 16 168/99 97 10/20/23 19:07 98.1 F 77 18 169/116 97 10/20/23 18:47 98.2 F 78 16 163/117 97 10/20/23 18:37 98.4 F 79 16 175/97 98 10/20/23 15:11 98.3 F 82 16 143/87 97 Intake and Output 10/20/23 10/21/23 10/21/23 22:59 06:59 14:59 Intake Total 310 Balance 310 Intake: Blood Product 310 Rc As-1 Unit 310 [id number] Other: # Voids 2 Weight 105.233 kg Results CBC & Chem 7: 10/21/23 03:48 10/20/23 15:30 Labs: Abnormal Lab Results - Last 24 Hours (Table) 10/20/23 10/20/23 10/20/23 Range/Units 15:20 15:25 15:30 RBC 2.75 L (4.30-5.90) m/uL Hgb 6.9 L* (13.0-17.5) gm/dL Hct 22.5 L (39.0-53.0) % MCHC 30.7 L (31.0-37.0) g/dL RDW 17.1 H (11.5-15.5) % Lymphocytes # (1.0-4.8) k/uL Retic Count 3.8 H (0.5-2.0) % PT 13.0 H (10.0-12.5) sec INR 1.2 H (<1.2) APTT 21.1 L (22.0-30.0) sec Chloride (98-107) mmol/L BUN (9-20) mg/dL Creatinine (0.66-1.25) mg/dL Iron (65-175) UG/DL % Saturation (15.00-50.00) Total Bilirubin (0.2-1.3) mg/dL Folate (4.40-31.00) ng/mL Crossmatch See Detail 10/20/23 10/20/23 10/21/23 Range/Units 15:30 15:30 03:48 RBC 2.87 L (4.30-5.90) m/uL Hgb 7.2 L (13.0-17.5) gm/dL Hct 23.3 L (39.0-53.0) % MCHC (31.0-37.0) g/dL RDW 17.3 H (11.5-15.5) % Lymphocytes # 0.5 L (1.0-4.8) k/uL Retic Count (0.5-2.0) % PT (10.0-12.5) sec INR (<1.2) APTT (22.0-30.0) sec Chloride 108 H (98-107) mmol/L BUN 24 H (9-20) mg/dL Creatinine 1.41 H (0.66-1.25) mg/dL Iron 21 L (65-175) UG/DL % Saturation 6.58 L (15.00-50.00) Total Bilirubin 1.4 H (0.2-1.3) mg/dL Folate 32.70 H (4.40-31.00) ng/mL Crossmatch Assessment and Plan (1) Anemia Current Visit: Yes Status: Acute Priority: High Code(s): D64.9 - ANEMIA, UNSPECIFIED SNOMED Code(s): 675321993 (2) Liver lesion Current Visit: Yes Status: Acute Priority: High Code(s): K76.9 - LIVER DISEASE, UNSPECIFIED SNOMED Code(s): 408484186 Plan: Liver mass -20lb weight loss over the last 2 months. No known personal history of cancer. No EtOH abuse, black or bloody stool -Bilirubin 1.4. CEA and AFP tumor markers were normal a few weeks ago. -Previous US showed hepatomegaly with mild fatty liver infiltration. Solid lesion within the right lobe of the liver measuring 4.5 x 4.0 x 3.9 cm -Plan was for MRI of liver to further evaluate, this was scheduled. It is now ordered to be done inpt. -Pt saw GI outpt yesterday. GI consulted. FRANCISCO -On admission hemoglobin noted at 6.9, anemia work up consistent with iron dieficiency. -GI consulted -IV iron ordered -PRBCs x 1 for Hgb <7. Transfuse for Hgb <7 -No previous B12 or folate deficiency noted -Monitor CBC Doctor attests: I performed a history and physical examination of this patient, developed impression and plan of care. Discussed with dictator. I agree with dictators note, documented as a scribe.
--- NOTE | 2023-10-21 20:15 | HP ---
HISTORY AND PHYSICAL CHIEF COMPLAINT: Anemia. HISTORY OF PRESENT ILLNESS: This is a 62-year-old gentleman with a past medical history of Marfan syndrome, history of atrial fibrillation, being followed by Dr. Bauer in the outpatient setting, previously admitted in October with anemia. Outpatient followup is suggested at this time. Currently, the patient's hemoglobin was 6.9. The patient was admitted with weakness, tiredness, and the patient is also taking Xarelto. There is no history of any fever, rigors, or chills at this time. Previous evaluation showed suspicious mass in the liver and also possible cirrhosis of liver, also in the previous CAT scan. GI evaluation in progress. There is no history of any fever, rigors, or chills. PAST MEDICAL HISTORY: Reviewed include atrial fibrillation, hypertension, Marfan syndrome, cardiac ablation, CAD, aortic surgery. HOME MEDICATIONS: 1. Lipitor. 2. Lisinopril. 3. Xarelto. Dose and rest of medications noted. ALLERGIES: None. FAMILY HISTORY: No history of heart disease or strokes in the family. SOCIAL HISTORY: No history of smoking or alcohol. REVIEW OF SYSTEMS: Fourteen-point review is negative except as mentioned earlier. PHYSICAL EXAMINATION: VITAL SIGNS: Pulse is 91, blood pressure 168/116, respirations 16. HEENT: Conjunctiva pale. Oral mucosa pale. NECK: No JVD. CARDIOVASCULAR: S1, S2 muffled. RESPIRATIONS: Breath sounds diminished at the bases. ABDOMEN: Soft, nontender. No mass palpable. LEGS: No edema. No swelling. NERVOUS SYSTEM: Nonfocal. Marfanoid features present. LABORATORY DATA: Hemoglobin 7.2. Rest of the labs are noted. ASSESSMENT: 1. Anemia, acute on chronic. Rule out acute gastrointestinal blood loss anemia. 2. Atrial fibrillation history. 3. Possible liver mass. 4. Marfan syndrome. 5. Rule out cirrhosis of liver. 6. Hypertension. 7. Hyperlipidemia. 8. Multiple medical issues. 9. History of aortic surgery. RECOMMENDATIONS AND DISCUSSION: This is a 62-year-old gentleman presented with multiple complex medical issues, we will monitor the patient closely. We will stop the anticoagulation, transfuse periodically. Gastroenterology consultation, possible endoscopes, otherwise resume the home medications. Cardiology consultation. Prognosis extremely guarded because of multiple complex medical issues and also the need to stop anticoagulation because of GI bleed. Discussed with the family, who understands and agrees. Further recommendations to follow. MMODL / IJN: [id number] /
[2023-10-21] MEDS: DOXAZOSIN 4 MG TAB PO SCH (21:25)
--- NOTE | 2023-10-22 10:26 | P.CRDCN ---
History of Present Illness Consult date: 10/22/23 Consult reason: atrial fibrillation History of present illness: History of present illness: This is a 62-year-old male patient of Dr. Everett with past medical history of persistent atrial fibrillation status post extensive ablation, significant left atrial enlargement, hypertension, hyperlipidemia, Marfan syndrome. We have been asked to evaluate the patient for atrial fibrillation. Patient presented to the hospital on 416 due to low hemoglobin of 6.2 identified by his PCP and instructed to come into the hospital. No bloody stools. No abdominal pain. No chest pain no palpitations. He is status post transfusion 1 unit packed RBCs an d is also receiving IV iron. He is scheduled for EGD and colonoscopy tomorrow with GI. Patient again denies having any palpitations, shortness of breath, lightheadedness or dizziness. Telemetry shows atrial fibrillation with controlled rates. Xarelto has been placed on hold due to anemia and possible GI bleed. Patient is also been seen by oncology as patient has anemia, liver lesion, weight loss of 20 pounds over 2 months. EKG atrial fibrillation with ventricular rate of 79 bpm Liver MRI limited study. Heterogeneous signal to the liver most likely secondary congestive heart failure given evidence of cardiomegaly and bilateral pleural effusions. Possible hemangiomas/atypical hemangiomas chronic. Initial hemoglobin 6.9 and repeat 7.2. Sodium 140, potassium 3.9, BUN 24 creatinine 1.41. Home cardiac medications: Atorvastatin 20 mg at bedtime, lisinopril 20 mg twice daily, metoprolol succinate 75 mg in the morning and 50 mg in the evening, Xarelto 20 mg with supper, Hytrin 5 mg at bedtime. [place] performed 03/05/2023 revealed normal EF, PFO, mild to moderate AR, moderate MR, mild TR. 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 Exercise tolerance test performed 08/17/2023 in the office revealed poor exercise tolerance. No symptoms of angina. No dysrhythmias. Nondiagnostic electrocardiographic stress test secondary to inadequate chronotropic response. Review Of Systems: At the time of my exam: CONSTITUTIONAL: Denies fever or chills. HEENT: Denies blurred vision, vision changes, or eye pain. Denies hemoptysis CARDIOVASCULAR: Denies chest pain. Denies orthopnea. Denies PND. Denies palpitations RESPIRATORY: Denies shortness of breath. GASTROINTESTINAL: Denies abdominal pain. Denies nausea or vomiting. HEMATOLOGIC: Denies bleeding disorders. GENITOURINARY: Denies any blood in urine. SKIN: Denies pruitis. Denies rash. Physical examination: Gen: This is a 62-year-old male in no acute distress VS: reviewed blood pressure 167/102, heart rate 77, pulse ox 95% on room air. HEENT: Head is atraumatic, normocephalic. Pupils equal, round. Sclerae is anicteric. NECK: Supple. No JVD. LUNGS: Clear to auscultation. No wheezes or rhonchi. No intercostal retra ctions. HEART: Irregular rate and rhythm. Heart rate controlled. No murmur. ABDOMEN: Soft No tenderness. EXTREMITIES: No pedal edema. No calf tenderness. NEUROLOGICAL: Patient is awake, alert and oriented x3. Assessment: Persistent atrial fibrillation with rate control Anemia, possible acute GI bleed, possible acute blood loss, status post transfusion 1 unit packed RBCs and iron infusion Acute kidney injury Hypertension Hyperlipidemia Plan: Resume patient's home cardiac medications Continue to hold Xarelto until cleared by GI Obtain 2-D echocardiogram and Doppler study to assess cardiac structure and function Further recommendations to follow based upon clinical course Thank you kindly for this consultation. Nurse practitioner note has been reviewed, I agree with documented findings and plan of care. Patient was seen and examined. 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 History of Any Multi-Drug Resistant Organisms: None Reported Past Surgical History: Cardiac Ablation, Coronary Bypass/CABG, Orthopedic Surge ry Additional Past Surgical History / Comment(s): "Had Aorta rebuilt in 2004", knee arthroscopy, right carpal tunnel release, 2 cardioversions Past Anesthesia/Blood Transfusion Reactions: No Reported Reaction Past Psychological History: Anxiety Smoking Status: Never smoker Past Alcohol Use History: None Reported Past Drug Use History: None Reported - Past Family History Mother History Unknown: Yes Family Medical History: No Reported History Medications and Allergies Home Medications Medication Instructions Recorded Confirmed Type Atorvastatin [Lipitor] 20 mg PO HS 12/22/18 10/20/23 History Multivitamins, Thera [Multivitamin 1 tab PO DAILY 12/22/18 10/20/23 History (formulary)] PARoxetine HCL [Paxil] 40 mg PO DAILY 12/22/18 10/20/23 History Terazosin [Hytrin] 5 mg PO HS 12/22/18 10/20/23 History lisinopriL 20 mg PO BID 12/22/18 10/20/23 History Ferrous Sulfate [Iron (65 MG 325 mg PO DAILY 05/15/21 10/20/23 History Elemental)] Cholecalciferol [Vitamin D3 (10 10 mcg PO DAILY 03/18/22 10/20/23 History Mcg = 400 Iu)] Rivaroxaban [Xarelto] 20 mg PO W/SUPPER 03/18/22 10/20/23 History Metoprolol Succinate (ER) [Toprol 75 mg PO DAILY 05/27/23 10/20/23 History XL] Metoprolol Succinate (ER) [Toprol 50 mg PO HS 09/30/23 10/20/23 History XL] Sodium Chloride Tab 1 gm PO DAILY #60 tab 10/05/23 10/20/23 Rx Allergies Allergy/AdvReac Type Severity Reaction Status Date / Time No Known Allergies Allergy Verified 10/20/23 15:14 Physical Exam Vitals: Vital Signs Temp Pulse Resp BP Pulse Ox 10/22/23 05:50 98.3 F 68 18 149/99 97 10/22/23 02:16 71 16 136/90 98 10/22/23 01:02 66 18 136/90 97 10/21/23 21:28 98.7 F 77 16 131/101 10/21/23 09:57 160/110 10/21/23 08:57 91 16 168/116 97 Intake and Output 10/21/23 10/22/23 10/22/23 22:59 06:59 14:59 Output Total 250 Balance -250 Output: Urine 250 Results 10/21/23 03:48 10/20/23 15:30 Current Medications Generic Name Dose Route Start Last Admin Trade Name Freq PRN Reason Stop Dose Admin Amlodipine Besylate 10 mg 10/21/23 13:00 10/21/23 13:36 Amlodipine 10 Mg Tab PO 10 mg DAILY VIRAJ Administration Atorvastatin Calcium 20 mg 10/20/23 21:00 10/21/23 21:24 Atorvastatin 20 Mg Tab PO 20 mg HS VIRAJ Administration Cholecalciferol 10 mcg 10/22/23 09:00 Cholecalciferol 10 Mcg (400 Iu) Tablet PO DAILY VIRAJ Doxazosin Mesylate 4 mg 10/21/23 21:00 10/21/23 21:25 Doxazosin 4 Mg Tab PO 4 mg HS VIRAJ Administration Hydralazine HCl 10 mg 10/21/23 12:47 Hydralazine Hcl 20 Mg/Ml 1 Ml Vial IVP Q4HR PRN Blood Pressure - High Sodium Chloride 1,000 mls @ 75 mls/hr 10/20/23 18:15 10/21/23 19:31 Saline 0.9% IV 75 mls/hr .[id number] VIRAJ Administration Ferric Sodium Gluconate 125 mg 110 mls @ 100 mls/hr 10/21/23 12:00 10/21/23 13:33 / Sodium Chloride IVPB 10/24/23 10:05 100 mls/hr DAILY VIRAJ Administration Lisinopril 20 mg 10/20/23 21:00 10/21/23 21:24 Lisinopril 20 Mg Tab PO 20 mg BID VIRAJ Administration Metoprolol Succinate 50 mg 10/20/23 21:00 10/21/23 21:25 Metoprolol Succinate (Er) 50 Mg Tab.Er.24h PO 50 mg HS VIRAJ Administration Metoprolol Succinate 75 mg 10/21/23 09:00 10/21/23 08:59 Metoprolol Succinate (Er) 25 Mg Tab.Er.24h PO 75 mg DAILY VIRAJ Administration Naloxone HCl 0.2 mg 10/20/23 18:06 Naloxone 0.4 Mg/Ml 1 Ml Vial IV Q2M PRN Opioid Reversal Pantoprazole Sodium 40 mg 10/21/23 13:00 10/21/23 21:26 Pantoprazole 40 Mg/10 Ml Vial IVP 40 mg BID VIRAJ Administration Paroxetine HCl 40 mg 10/22/23 09:00 Paroxetine 20 Mg Tab PO DAILY VIRAJ Polyethylene Glycol/Electrolytes 4,000 ml 10/22/23 16:00 Peg 3350 (236 Gm/Btl) + Lytes 4,000 Ml Bottle PO 10/22/23 16:01 ONCE ONE Sodium Chloride 1 gm 10/22/23 09:00 Sodium Chloride Tab 1 Gm Tab PO DAILY VIRAJ Intake and Output 10/21/23 10/22/23 10/22/23 22:59 06:59 14:59 Output Total 250 Balance -250 Output: Urine 250 10/21/23 03:48 10/20/23 15:30
[2023-10-22] MEDS: PARoxetine 20 MG TAB PO SCH (11:09)
[2023-10-22] MEDS: CHOLECALCIFEROL 10 MCG (400 IU) TABLET PO SCH (11:10)
[2023-10-22] MEDS: SODIUM CHLORIDE TAB 1 GM TAB PO SCH (11:10)
[2023-10-22 11:22] LABS: Basophils # (A) 0.03 X 10*3/uL (0.00-0.10); Basophils % (A) 0.6 %; Eosinophils # (A) 0 X 10*3/uL (0.04-0.35); Eosinophils % (A) 0 %; HCT 24.6 % (39.6-50.0); HGB 7.4 g/dL (13.0-17.0); Lymphocytes # (A) 0.53 X 10*3/uL (0.90-5.00); Lymphocytes % (A) 9.7 %; MCH 24.9 pg (27.0-32.0); MCHC 30.1 g/dL (32.0-37.0); MCV 82.8 FL (80.0-97.0); Mean Platelet Volume 11.1 FL (9.5-12.2); Monocytes # (A) 0.31 X 10*3/uL (0.20-1.00); Monocytes % (A) 5.7 %; NRBC Per 100 WBC 0 X 10*3/uL (0.00-0.01); Neutrophils # (A) 4.52 X 10*3/uL (1.80-7.70); Neutrophils % (A) 83.1 %; Platelet Count 343 X 10*3/uL (140-440); RBC 2.97 X 10*6/uL (4.40-5.60); RDW 18.2 % (11.5-14.5); WBC 5.44 X 10*3/uL (4.50-10.00)
[2023-10-22 11:25] LABS: ALT 11 U/L (10-49); AST 13 U/L (14-35); Albumin 3.7 g/dL (3.8-4.9); Albumin/Globulin Ratio 1.42 Ratio (1.60-3.17); Alkaline Phosphatase 82 U/L (41-126); BUN/Creat Ratio 12.62 Ratio (12.00-20.00); Blood Urea Nitrogen 16.4 mg/dL (9.0-27.0); Calcium 8.9 mg/dL (8.7-10.3); Carbon Dioxide 20.9 mmol/L (21.6-31.8); Chloride 105 mmol/L (96-109); Globulin 2.6 g/dL (1.6-3.3); Glucose 91 mg/dL (70-110); Potassium 3.4 mmol/L (3.5-5.5); Sodium 141 mmol/L (135-145); Total Bilirubin 1.5 mg/dL (0.3-1.2); Total Protein 6.3 g/dL (6.2-8.2)
[2023-10-22 14:23] VITALS: BMI 29.0
[2023-10-22] MEDS: PEG 3350 (236 GM/BTL) + LYTES 4,000 ML BOTTLE PO ONE (16:17)
--- NOTE | 2023-10-22 17:08 | P.PN ---
Subjective Progress Note Date: 10/22/23 Principal diagnosis: Anemia This is a pleasant 62-year-old male with a history of Marfan syndrome, cognitive impairment atrial fibrillation on Xarelto who was seen yesterday by [facility] as a outpatient follow-up from a recent admission for anemia and possible liver mass. He had outpatient blood work done and was called by his PCP Dr. Bauer for concerns of a low hemoglobin of 6.4 and was told to come to the emergency department for further evaluation. Apparently patient has not been having any signs or symptoms of GI bleed. No black stool or blood in the stool reported. According to chart last reported colonoscopy was about 2 years ago which was reported as normal. No previous EGD. During his last admission 09/30/2023 through 10-27 he was noted to have some jaundice and had a CT of the abdomen pelvis as well as ultrasound of the abdomen. Was noted as a solid lesion in the right lobe of the liver measuring 4.5 x 4.0 x 3.9 cm. Oncology was consulted at that time they recommended outpatient follow-up with gastroenterology for anemia and outpatient MRI of the liver. Patient has yet to get that MRI done. He denies any abdominal pain, nausea or vomiting at this time. October 22, 2023 Patient is seen and examined today as a follow-up. His guardians are at the bedside. He denies any abdominal pain, nausea or vomiting. He is getting iron infusion today. Iron studies were consistent with iron deficiency anemia. He denies any abdominal pain nausea or vomiting. Guardians again at the bedside and states that no evidence of any black stool or blood in his stool. Today's hemoglobin 7.4. Alpha-fetoprotein tumor marker negative he is status post 1 unit of blood transfusion this admission. MRI of the liver reports heterogeneous signal/enhancement pattern to the liver most likely secondary to congestive heart failure given evidence of cardiomegaly and bilateral pleural effusion. Observation in the right hepatic lobe segment 5 and segment 7 with Santo Baker enhancement is indeterminate. While the enhancement pattern is relatively indeterminant either favored represent hemangiomas/atypical hemangiomas. These have been seen dating back to at least 2017 although slightly larger in size and today's exam particularly the segment 5 lesion. Consider follow-up in [address] liver mass protocol given patient's inability to breathe. Objective - Vital Signs Vital signs: Vital Signs Temp 97.7 F 10/22/23 14:18 Pulse 75 10/22/23 14:18 Resp 15 10/22/23 14:18 BP 153/91 10/22/23 14:18 Pulse Ox 100 10/22/23 14:18 FiO2 Intake & Output 10/21/23 10/22/23 10/22/23 18:59 06:59 18:59 Intake Total 236 Output Total 250 Balance -250 236 Weight 105.233 kg Intake: Oral 236 Output: Urine 250 Other: # Voids 1 - Exam General appearance: The patient is alert, oriented, appears in no acute distress. HET: Head is normocephalic and atraumatic. Conjunctiva pink. Sclera anicteric. Neck: Supple without lymphadenopathy. Abdomen: Soft, nontender, nondistended with bowel sounds. No guarding or rigidity. Extremities: Normal skin color and turgor. No pedal edema Skin: No rashes, no jaundice Neurological: No focal deficits. Alert and oriented. - Labs CBC & Chem 7: 10/22/23 07:03 10/22/23 07:03 Labs: Abnormal Lab Results - Last 24 Hours (Table) 10/22/23 10/22/23 Range/Units 07:03 07:03 RBC 2.97 L (4.40-5.60) X 10*6/uL Hgb 7.4 L (13.0-17.0) g/dL Hct 24.6 L (39.6-50.0) % MCH 24.9 L (27.0-32.0) pg MCHC 30.1 L (32.0-37.0) g/dL RDW 18.2 H (11.5-14.5) % Immature Gran # 0.05 H (0.00-0.04) X 10*3/uL Lymphocytes # 0.53 L (0.90-5.00) X 10*3/uL Eosinophils # 0 L (0.04-0.35) X 10*3/uL Potassium 3.4 L (3.5-5.5) mmol/L Carbon Dioxide 20.9 L (21.6-31.8) mmol/L Anion Gap 15.10 H (4.00-12.00) mmol/L Total Bilirubin 1.5 H (0.3-1.2) mg/dL AST 13 L (14-35) U/L Albumin 3.7 L (3.8-4.9) g/dL Albumin/Globulin Ratio 1.42 L (1.60-3.17) Ratio Assessment and Plan (1) Anemia Narrative/Plan: 62-year-old male who has been admitted recently with abdominal pain and, 20 to 40 pound weight loss who had been found anemic requiring blood transfusion. He has been being monitored for anemia. No previous history of GI bleed. Denies any symptoms of GI bleed. This patient who has history of atrial fibrillation on anticoagulation. Has a normocytic normochromic anemia. Iron studies were ordered and he is iron deficient ferritin 97.3. He is getting iron infusion. Unclear etiology of anemia. No previous upper endoscopy last reported colonoscopy about 2 years ago. Will tentatively plan for upper and lower endoscopy this Thursday. Current Visit: Yes Status: Acute Priority: High Code(s): D64.9 - ANEMIA, UNSPECIFIED SNOMED Code(s): 470179402 (2) Liver lesion Narrative/Plan: Liver lesion/nodule seen on previous abdominal ultrasound with recommendation f or outpatient MRI and follow-up with oncology. Mildly elevated bilirubin, no other LFT elevation. Patient has yet to have MRI completed. Will order during this hospitalization and reconsult oncology. Current Visit: Yes Status: Acute Priority: High Code(s): K76.9 - LIVER DISEASE, UNSPECIFIED SNOMED Code(s): 439796254 (3) Acute kidney injury Current Visit: Yes Status: Acute Code(s): N17.9 - ACUTE KIDNEY FAILURE, UNSPECIFIED SNOMED Code(s): 00556352 (4) Marfan syndrome Current Visit: Yes Status: Acute Code(s): Q87.40 - MARFAN SYNDROME, UNSP ECIFIED SNOMED Code(s): 49357024 (5) Cognitive impairment Current Visit: Yes Status: Acute Code(s): R41.89 - OTH SYMPTOMS AND SIGNS W COGNITIVE FUNCTIONS AND AWARENESS SNOMED Code(s): 344114800 (6) A-fib Narrative/Plan: Hold anticoagulation Current Visit: No Status: Acute Code(s): I48.91 - UNSPECIFIED ATRIAL FIBRILLATION SNOMED Code(s): 64271937 Plan: 1. Continue symptomatic and supportive care 2. Hold anticoagulation 3. Daily CBC, transfuse for hemoglobin less than 7 4. Bowel prep today 5. MRI liver ordered and reviewed 6. Consult to oncology/hematology appreciate recommendations 7. Clear liquid diet, n.p.o. after midnight 8. Plan for EGD and colonoscopy tomorrow with possible small bowel capsule endoscopy 10. Rest of medical management per primary medical team Thank you for this consultation, we will continue to follow. Dr. Dandre Davenport I agree with the dictator's note, documented as a scribe by Celeste Hernandez.
--- NOTE | 2023-10-22 17:22 | CA ---
Transthoracic Echo Report Name: Zac Hebert Age: 62 Gender: M : 1960 Exam Date: 10/22/2023 14:09 Exam Location: [place] Echo Ht (in): 75 Wt (lb): 232 Ordering Physician: Evonne Syed Attending/Referring Phys: [id number], Yahaira Manager Developmental Kylie Levin RDCS Procedure CPT: Indications: LVF Cardiac Hx: Technical Quality: Fair Contrast 1: Total Dose (mL): Contrast 2: Total Dose (mL): MEASUREMENTS (Male / Female) Normal Values 2D ECHO LV Diastolic Diameter PLAX 5.1 cm 4.2 - 5.9 / 3.9 - 5.3 cm LV Systolic Diameter PLAX 3.1 cm IVS Diastolic Thickness 1.5 cm 0.6 - 1.0 / 0.6 - 0.9 cm LVPW Diastolic Thickness 1.4 cm 0.6 - 1.0 / 0.6 - 0.9 cm LV Relative Wall Thickness 0.6 RV Internal Dim ED PLAX 5.2 cm LV Diastolic Volume MOD BP 176.4 cm??? 67 - 155 / 56 - 104 cm??? LV Systolic Volume MOD BP 96.7 cm??? 22 - 58 / 19 - 49 cm??? LV Ejection Fraction MOD BP 45.2 % >= 55 % LV Cardiac Index MOD BP 2880.3 cm???/min???m??? LV Diastolic Volume MOD 4C 166.4 cm??? LV Systolic Volume MOD 4C 83.7 cm??? LV Ejection Fraction MOD 4C 49.7 % LV Cardiac Index MOD 4C 2993.0 cm???/min???m??? LV Diastolic Length 4C 8.9 cm LV Systolic Length 4C 8.2 cm LV Diastolic Volume MOD 2C 175.8 cm??? LV Systolic Volume MOD 2C 105.1 cm??? LV Ejection Fraction MOD 2C 40.2 % LV Cardiac Index MOD 2C 2555.4 cm???/min???m??? LV Diastolic Length 2C 8.3 cm LV Systolic Length 2C 8.9 cm LA Volume 204.8 cm??? 18 - 58 / 22 - 52 cm??? LA Volume Index 86.1 cm???/m??? 16 - 28 cm???/m??? M-MODE Aortic Root Diameter MM 4.1 cm LA Systolic Diameter MM 5.7 cm LA Ao Ratio MM 1.4 AV Cusp Separation MM 2.6 cm DOPPLER AV Peak Velocity 176.7 cm/s AV Peak Gradient 12.5 mmHg AV Mean Velocity 122.8 cm/s AV Mean Gradient 6.8 mmHg AV Velocity Time Integral 31.8 cm AI Peak Velocity 550.5 cm/s AI Peak Gradient 121.2 mmHg AI Pressure Half Time 580.9 ms LVOT Peak Velocity 106.3 cm/s LVOT Peak Gradient 4.5 mmHg LVOT Velocity Time Integral 21.2 cm MV Area PHT 5.1 cm??? Mitral E Point Velocity 154.1 cm/s Mitral A Point Velocity 0.4 cm/s Mitral E to A Ratio 355.3 MV Deceleration Time 148.8 ms MV E' Velocity 4.7 cm/s Mitral E to MV E' Ratio 32.8 TR Peak Velocity 286.5 cm/s TR Peak Gradient 32.8 mmHg Right Atrial Pressure 15.0 mmHg Pulmonary Artery Systolic Pressu 47.8 mmHg Right Ventricular Systolic Press 47.8 mmHg FINDINGS Left Ventricle Moderately increased septal wall thickness. Mildly increased left ventricular diastolic volume. Severely increased left ventricular systolic volume. Mildly decreased left ventricular ejection fraction. Left ventricular ejection fraction is estimated at 45-50 %. Right Ventricle Severe right ventricular dilatation. Moderate pulmonary hypertension. Right ventricular systolic pressure estimated at 49 mm hg. Right Atrium Severe right atrial dilatation. Left Atrium Severely increased left atrial volume. Severely increased left atrial area. Mitral Valve Structurally normal mitral valve. Mitral valve thickened. Moderate mitral annular calcification. Cshulagw-[id number]-nfcnpa mitral regurgitation. Aortic Valve Trileaflet aortic valve. Thickened aortic valve without stenosis. Mild aortic regurgitation. Tricuspid Valve Structurally normal tricuspid valve. Moderate tricuspid regurgitation. Pulmonic Valve Structurally normal pulmonic valve. Pericardium No pericardial effusion. Aorta Normal size aortic root and proximal ascending aorta. CONCLUSIONS Left ventricular hypertrophy with mild LV dysfunction Moderate pulmonary hypertension Severe biatrial enlargement Moderate to severe mitral regurgitation with mitral annular calcification Mild aortic regurgitation Moderate tricuspid regurgitation Previewed by: Dr. Ken Davenport MD (Electronically Signed) Final Date: 22 October 2023 17:21
--- NOTE | 2023-10-22 18:54 | P.PN ---
Subjective Progress Note Date: 10/22/23 Principal diagnosis: FRANCISCO, liver mass In follow-up today patient has no complaints, he feels overall pretty well, there are plans for endoscopy inpatient. He denies any fevers, nausea. Objective - Vital Signs Vital signs: Vital Signs Temp 98.2 F 10/22/23 07:30 Pulse 71 10/22/23 11:19 Resp 18 10/22/23 11:19 BP 151/95 10/22/23 11:19 Pulse Ox 96 10/22/23 11:19 FiO2 Intake & Output 10/21/23 10/22/23 10/22/23 18:59 06:59 18:59 Output Total 250 Balance -250 Output: Urine 250 - Constitutional General appearance: Present: average body habitus, cooperative, no acute distress - EENT Eyes: Present: anicteric sclerae, EOMI ENT: Present: hearing grossly normal - Respiratory Details: resp even and unlabored at rest - Cardiovascular Details: skin warm and dry to touch, well perfused, good color - Integumentary Integumentary: Present: normal - Neurologic Neurologic: Present: CNII-XII intact (grossly) - Musculoskeletal Musculoskeletal: Present: strength equal bilaterally - Psychiatric Psychiatric: Present: A&O x's 3, appropriate affect - Labs CBC & Chem 7: 10/22/23 07:03 10/22/23 07:03 Labs: Abnormal Lab Results - Last 24 Hours (Table) 10/22/23 10/22/23 Range/Units 07:03 07:03 RBC 2.97 L (4.40-5.60) X 10*6/uL Hgb 7.4 L (13.0-17.0) g/dL Hct 24.6 L (39.6-50.0) % MCH 24.9 L (27.0-32.0) pg MCHC 30.1 L (32.0-37.0) g/dL RDW 18.2 H (11.5-14.5) % Immature Gran # 0.05 H (0.00-0.04) X 10*3/uL Lymphocytes # 0.53 L (0.90-5.00) X 10*3/uL Eosinophils # 0 L (0.04-0.35) X 10*3/uL Potassium 3.4 L (3.5-5.5) mmol/L Carbon Dioxide 20.9 L (21.6-31.8) mmol/L Anion Gap 15.10 H (4.00-12.00) mmol/L Total Bilirubin 1.5 H (0.3-1.2) mg/dL AST 13 L (14-35) U/L Albumin 3.7 L (3.8-4.9) g/dL Albumin/Globulin Ratio 1.42 L (1.60-3.17) Ratio - Imaging and Cardiology liver MRI report reviewed Assessment and Plan (1) Anemia Current Visit: Yes Status: Acute Priority: High Code(s): D64.9 - ANEMIA, UNSPECIFIED SNOMED Code(s): 766034360 (2) Liver lesion Current Visit: Yes Status: Acute Priority: High Code(s): K76.9 - LIVER DISEASE, UNSPECIFIED SNOMED Code(s): 951175173 Plan: Liver mass -20lb weight loss over the last 2 months. No known personal history of cancer. No EtOH abuse, black or bloody stool -Bilirubin 1.5 today. CEA and AFP tumor markers were normal a few weeks ago. -Previous US showed hepatomegaly with mild fatty liver infiltration. Solid lesion within the right lobe of the liver measuring 4.5 x 4.0 x 3.9 cm -MRI of liver MRI of the liver reports heterogeneous signal enhancement pattern to the liver, most likely secondary to congestive heart failure given evidence of cardiomegaly and bilateral pleural effusions. Observation in the right h epatic lobe segment 5 and segment 7 with peripheral enhancement is indeterminant. Enhancement pattern is relatively indeterminant, either favored to represent hemangiomas/atypical hemangiomas. These have been seen dating back to at least 2017 although slightly larger. Recommend 6-month follow-up with CT liver mass protocol. -No evidence to suggest a primary hepatocellular carcinoma. This was reviewed with the patient and his guardians. Recommended ongoing monitoring as stated. -Pt saw GI outpt yesterday. GI consulted, plans for endoscopy while inpt. Agree with plan FRANCISCO -On admission hemoglobin noted at 6.9, anemia work up consistent with iron dieficiency. -GI consulted -IV iron ordered, pt tolerating. Cont -PRBCs x 1 for Hgb 6.8 on the . Hgb 7.4 today. Transfuse for Hgb <7 -No previous B12 or folate deficiency noted -Monitor CBC Doctor attests: I performed a history and physical examination of this patient, developed impression and plan of care. Discussed with dictator. I agree with dictators note, documented as a scribe.
--- NOTE | 2023-10-22 20:48 | PN ---
PROGRESS NOTE DATE OF SERVICE: 10/22/2023 SUBJECTIVE: This 62-year-old gentleman admitted with anemia, acute on chronic. He is being evaluated for GI bleed. Hemoglobin 7.4 today. Gastroenterology is following the patient closely. Cardiology has seen the patient. OBJECTIVE: VITAL SIGNS: Pulse is 77, blood pressure 160/102, respirations 15. HEENT: Conjunctiva pale. CHEST: Clear to auscultation. CARDIOVASCULAR: S1, S2. ABDOMEN: Soft, no mass palpable. LABORATORY DATA: Potassium 3.2, hemoglobin 7.4. ASSESSMENT: 1. Anemia, acute on chronic, rule out GI blood loss anemia. 2. Atrial fibrillation history. 3. Possible liver mass. 4. Marfan syndrome. 5. Rule out cirrhosis of liver. 6. Hypertension. 7. Hyperlipidemia. 8. Multiple medical issues. 9. History of aortic surgery. RECOMMENDATIONS: Recommended to continue current management, continue symptomatic treatment. Recommended repeat ultrasound of the liver and avoid anticoagulation, antiplatelet agents. Repeat labs. Closely follow with multiple consultants. Guarded prognosis. Further recommendations to follow. Endoscopies. MMODL / IJN: [id number] /
[2023-10-23 00:57] LABS: Bilirubin, Conjugated 0.64 mg/dL (0.20-0.40); Bilirubin,Unconjugated 0.86 mg/dL (0.20-1.00); Total Bilirubin 1.5 mg/dL (0.3-1.2)
[2023-10-23] MEDS: hydrALAZINE HCL 20 MG/ML 1 ML VIAL IVP PRN (02:04)
--- NOTE | 2023-10-23 09:46 | CDI ---
Date: 10/23/2023 From: Amirah Albarran Phone: [phone] Admit Date: 10/21/2023 09:44:00 AM Patient Name: Zac Hebert Visit Number: [id number] Discharge Date: ATTENTION: The Clinical Documentation Specialists (CDI) and [facility] Coding Staff appreciate your assistance in clarifying documentation. Please respond to the clarification below the line at the bottom and electronically sign. The CDI & [facility] Coding staff will review the response and follow-up if needed. Please note: Queries are made part of the Legal Health Record. If you have any questions, please contact the author of this message via ITS. Dr. Arielle Trujillo KAYODE is documented in the GI consult 10/20 which may lack sufficient clinical evidence/support in the medical record. Additional clarification is requested. History/Risk Factors: Afib, HTN, Marfan Syndrome who presents with anemia Clinical Indicators: 10/20 GI consult, Assessment and Plan: "(3) Acute kidney injury" 10/19-10/21 BUN 24, 16.4 Creatinine: 1.41, 1.3 10/19 EGFR (NonAf): 54 Treatment: Monitor BUN/Creatinine Normal Saline 75cc/hour IV start 10/19 Please clarify if Acute kidney injury is a valid diagnosis? [ ] Yes, Acute kidney injury is present as evidence by (additional clinical support): [ ] No, Acute kidney injury is ruled out [ ] Other (please specify diagnosis) [ ] Unable to determine In responding to this query, please exercise your independent professional judgment. The [facility] Coding Staff and Clinical Documentation Specialists appreciate your assistance in clarifying documentation, maintaining compliance with coding guidelines, accurately documenting patients condition and capturing severity of illness. The fact that a question is asked does not imply that any particular answer is desired or expected. Communication forms are a method of clarifying documentation and are made part of the Legal Health Record. Thank you in advance for your clarification. Last Revision: August 2022 Reference: KDIGO KAYODE Criteria An increase in serum creatinine by greater than or equal to 0.3 mg/dL within 48 hours; An increase in serum creatinine by greater than or equal to 1.5 times baseline, which is known or presumed to have occurred within the prior 7 days; A urine volume less than 0.5 ml/kg/h for 6 hours. When the baseline is unknown the lowest creatinine during admission assumed to be baseline No, Acute kidney injury is ruled out MTDD
--- NOTE | 2023-10-23 09:56 | P.PN ---
Subjective Progress Note Date: 10/23/23 Consult reason: atrial fibrillation History of present illness: History of present illness: This is a 62-year-old male patient of Dr. Everett with past medical history of persistent atrial fibrillation status post extensive ablation, significant left atrial enlargement, hypertension, hyperlipidemia, Marfan syndrome. We have been asked to evaluate the patient for atrial fibrillation. Patient presented to the hospital on 416 due to low hemoglobin of 6.2 identified by his PCP and instructed to come into the hospital. No bloody stools. No abdominal pain. No chest pain no palpitations. He is status post transfusion 1 unit packed RBCs and is also receiving IV iron. He is scheduled for EGD and colonoscopy tomorrow with GI. Patient again denies having any palpitations, shortness of breath, lightheadedness or dizziness. Telemetry shows atrial fibrillation with controlled rates. Xarelto has been placed on hold due to anemia and possible GI bleed. Patient is also been seen by oncology as patient has anemia, liver lesion, weight loss of 20 pounds over 2 months. EKG atrial fibrillation with ventricular rate of 79 bpm Liver MRI limited study. Heterogeneous signal to the liver most likely secondary congestive heart failure given evidence of cardiomegaly and bilateral pleural effusions. Possible hemangiomas/atypical hemangiomas chronic. Initial hemoglobin 6.9 and repeat 7.2. Sodium 140, potassium 3.9, BUN 24 creatinine 1.41. Home cardiac medications: Atorvastatin 20 mg at bedtime, lisinopril 20 mg twice daily, metoprolol succinate 75 mg in the morning and 50 mg in the evening, Xarelto 20 mg with supper, Hytrin 5 mg at bedtime. [place] performed 03/05/2023 revealed normal EF, PFO, mild to moderate AR, moderate MR, mild TR. 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 Exercise tolerance test performed 08/17/2023 in the office revealed poor exercise tolerance. No symptoms of angina. No dysrhythmias. Nondiagnostic el ectrocardiographic stress test secondary to inadequate chronotropic response. 10/22 Patient seen today in follow-up. Patient is scheduled for EGD and colonoscopy today. Patient remains in atrial fibrillation with controlled rate in the 60s to 80s, blood pressure remains elevated 157/96, pulse ox 99% on room air. Repeat hemoglobin is 7.4 from yesterday. He is status post transfusion 1 unit packed RBCs on this admission. Xarelto remains on hold. Echocardiogram reveals left ventricular hypertrophy with mild LV dysfunction. Moderate pulmonary hypertension. Severe biatrial enlargement. Moderate to severe mitral regurgitation and mitral annular calcification. Mild aortic regurgitation. Moderate tricuspid regurgitation. Physical examination: Gen: This is a 62-year-old male in no acute distress VS: reviewed HEENT: Head is atraumatic, normocephalic. Pupils equal, round. Sclerae is an icteric. NECK: Supple. No JVD. LUNGS: Clear to auscultation. No wheezes or rhonchi. No intercostal retractions. HEART: Irregular rate and rhythm. Heart rate controlled. No murmur. ABDOMEN: Soft No tenderness. EXTREMITIES: No pedal edema. No calf tenderness. NEUROLOGICAL: Patient is awake, alert and oriented x3. Assessment: Persistent atrial fibrillation with rate control Anemia, possible acute GI bleed, possible acute blood loss, status post transfusion 1 unit packed RBCs and iron infusion Acute kidney injury Hypertension Hyperlipidemia Plan: Resume patient's home cardiac medications Continue to hold Xarelto until cleared by GI Add losartan 25 mg daily Further recommendations to follow based upon clinical course Nurse practitioner note has been reviewed, I agree with documented findings and plan of care. Patient was seen and examined. Objective - Vital Signs Vital signs: Vital Signs Temp 98 F 10/23/23 02:00 Pulse 67 10/23/23 02:00 Resp 18 10/23/23 02:00 BP 152/90 10/23/23 04:03 Pulse Ox 97 10/23/23 02:00 FiO2 Intake & Output 10/22/23 10/23/23 10/23/23 18:59 06:59 18:59 Intake Total 236 Balance 236 Weight 105.233 kg Intake: Oral 236 Other: Voiding Method Bedside Commode # Voids 1 2 - Labs CBC & Chem 7: 10/22/23 07:03 10/22/23 07:03 Labs: Abnormal Lab Results - Last 24 Hours (Table) 10/22/23 10/22/23 10/22/23 Range/Units 07:03 07:03 07:03 RBC 2.97 L (4.40-5.60) X 10*6/uL Hgb 7.4 L (13.0-17.0) g/dL Hct 24.6 L (39.6-50.0) % MCH 24.9 L (27.0-32.0) pg MCHC 30.1 L (32.0-37.0) g/dL RDW 18.2 H (11.5-14.5) % Immature Gran # 0.05 H (0.00-0.04) X 10*3/uL Lymphocytes # 0.53 L (0.90-5.00) X 10*3/uL Eosinophils # 0 L (0.04-0.35) X 10*3/uL Potassium 3.4 L (3.5-5.5) mmol/L Carbon Dioxide 20.9 L (21.6-31.8) mmol/L Anion Gap 15.10 H (4.00-12.00) mmol/L Total Bilirubin 1.5 H 1.5 H (0.3-1.2) mg/dL Conjugated Bilirubin 0.64 H (0.20-0.40) mg/dL AST 13 L (14-35) U/L Albumin 3.7 L (3.8-4.9) g/dL Albumin/Globulin Ratio 1.42 L (1.60-3.17) Ratio
[2023-10-23] MEDS: LOSARTAN 25 MG TAB PO SCH (10:43)
[2023-10-23 12:13] LABS: Basophils # (A) 0.03 X 10*3/uL (0.00-0.10); Basophils % (A) 0.6 %; Eosinophils # (A) 0 X 10*3/uL (0.04-0.35); Eosinophils % (A) 0 %; HCT 24.8 % (39.6-50.0); HGB 7.6 g/dL (13.0-17.0); Lymphocytes # (A) 0.47 X 10*3/uL (0.90-5.00); Lymphocytes % (A) 9.9 %; MCH 24.8 pg (27.0-32.0); MCHC 30.6 g/dL (32.0-37.0); Mean Platelet Volume 10.7 FL (9.5-12.2); Monocytes # (A) 0.28 X 10*3/uL (0.20-1.00); Monocytes % (A) 5.9 %; NRBC Per 100 WBC 0 X 10*3/uL (0.00-0.01); Neutrophils # (A) 3.97 X 10*3/uL (1.80-7.70); Neutrophils % (A) 83.2 %; Platelet Count 305 X 10*3/uL (140-440); RBC 3.06 X 10*6/uL (4.40-5.60); RDW 18.5 % (11.5-14.5); WBC 4.77 X 10*3/uL (4.50-10.00)
[2023-10-23 12:26] LABS: ALT 10 U/L (10-49); AST 12 U/L (14-35); Albumin 3.6 g/dL (3.8-4.9); Albumin/Globulin Ratio 1.38 Ratio (1.60-3.17); Alkaline Phosphatase 83 U/L (41-126); BUN/Creat Ratio 8.58 Ratio (12.00-20.00); Blood Urea Nitrogen 10.3 mg/dL (9.0-27.0); Calcium 8.5 mg/dL (8.7-10.3); Carbon Dioxide 22.3 mmol/L (21.6-31.8); Chloride 108 mmol/L (96-109); Globulin 2.6 g/dL (1.6-3.3); Glucose 101 mg/dL (70-110); Potassium 3.3 mmol/L (3.5-5.5); Sodium 143 mmol/L (135-145); Total Bilirubin 1.2 mg/dL (0.3-1.2); Total Protein 6.2 g/dL (6.2-8.2)
[2023-10-23] MEDS ORDERED: MIDAZOLAM 2 MG/2 ML VIAL ONE (15:35)
[2023-10-23] MEDS ORDERED: LIDOCAINE 1% INJ 10MG/ML (20 ML MDV) ONE (15:35)
[2023-10-23] MEDS ORDERED: fentaNYL (PF) 50 MCG/ML 2 ML AMP ONE (15:35)
[2023-10-23] MEDS ORDERED: PROPOFOL 10 MG/ML 20 ML VIAL IV ONE (15:35)
[2023-10-23] MEDS: IV FLUID CONTINUATION 1,000 ML IV ONE (16:00)
--- NOTE | 2023-10-23 16:01 | P.PCN ---
Date of Procedure: 10/23/23 Procedure(s) Performed: Brief history: Patient is a pleasant 62-year-old white male admitted the hospital with severe symptomatic anemia and hemoglobin of 6.4 g/dL requiring PRBC transfusion over the last 1 month duration. He denies any GI symptoms. He is scheduled for an elective upper endoscopy as well as colonoscopy today. Procedure performed: Esophagogastroduodenoscopy with biopsy Colonoscopy with snare polypectomy Preoperative diagnosis: Severe symptomatic anemia Anesthesia: MAC Procedure: After informed consent was obtained from the patient was brought into the endoscopy unit and IV sedation was administered by anesthesia under continuous monitoring. Initially upper endoscopy was done. The Olympus GF 160 video endoscope was inserted inserted into the mouth and esophagus intubated without any difficulty and was gradually advanced into the stomach and duodenum and carefully examined. The bulb and second part of the duodenum appeared normal. abscesses were done from the duodenum to evaluate for celiac disease. The scope was then withdrawn into the stomach adequately insufflated with air and upon careful examination the antrummild gastritis and biopsies were done from this area. Mucosa of the body, cardia and fundus appeared normal. The scope was then withdrawn into the esophagus. hiatal hernia noted.The GE junction was located at 40 cm to the incisors. It appeared regular with no erythema erosions or ulcerations. Rest of the esophagus appeared normal. Patient tolerated the procedure well. At this time the patient continued to remain sedation. Initial digital rectal examination was normal. Olympus CF 160 video colonoscope was then inserted into the rectum and gradually advanced to the cecum without any difficulty. Careful examination was performed as the scope was gradually being withdrawn. The prep was excellent. The cecum, ascending appeared normal. In the transverse colon there was a 1 cm sessile polyp that was removed by snare polypectomy. Rest of the descending colon, descending colon, sigmoid colon and rectum appeared normal. Retroflexion was performed in the rectum and no lesions were noted. Patient tolerated the procedu Impression: 1. Upper endoscopy revealed small hiatal hernia and mild antral gastritis 2. Colonoscopy revealed 1 cm;transverse colonpolyp status postsnare polypectomy rest of the colon appeared normal Recommendations: Findings of this examination were discussed with the patient as well as his family. He was advised to follow with the biopsy results. Advance to regular diet.
[2023-10-23] MEDS: POTASSIUM CHLORIDE ER 20 MEQ TAB.ER PO STA (18:21)
--- NOTE | 2023-10-24 05:46 | P.PN ---
Subjective Progress Note Date: 10/23/23 This is a 62-year-old male who was recently admitted with anemia being closely monitored by GI. Patient was initially scheduled in the outpatient setting for endoscopy for continued anemia although hemoglobin was found to be low and sent here for further evaluation. GI following and patient has completed the bowel prep awaiting to undergo EGD/colonoscopy today. Hemoglobin is stable with no active bleeding noted at this time. Oncology following as well as there was concern for possible liver mass. Awaiting MRI as well. Patient is currently afebrile and n.p.o. with no reports of nausea or vomiting. Patient reports tolerated the bowel prep with no difficulties and was having greenish noted s tool with no black, tarry, or bloody stools noted. Will follow-up on repeat labs and continue to monitor closely. Review of systems: Constitutional: No reports of fatigue, fever, or chills Cardiovascular: No reports of chest pain or palpitations Respiratory: No reports of shortness of breath or cough GI: No reports of nausea, no reports of vomiting, reports to feeling hungry : No reports of dysuria or retention Neurovascular: reports of generalized weakness All medications have been reviewed PHYSICAL EXAMINATION: GENERAL: The patient is alert and oriented x3, Well developed, well nourished. Elderly appearing HEENT: Pupils are round and equally reacting to light. EOMI. no scleral icterus. No conjunctival pallor. Normocephalic, atraumatic. No pharyngeal erythema. No thyromegaly. CARDIOVASCULAR: S1 and S2 muffled PULMONARY: diminished breath sounds bilaterally with no wheezing or rhonchi noted. ABDOMEN: soft. Nontender on exam. obese. non-distended, normoactive bowel s ounds. No palpable organomegaly. MUSCULOSKELETAL: No joint swelling or deformity. EXTREMITIES: No cyanosis, clubbing, or pedal edema. NEUROLOGICAL: Gross neurological examination did not reveal any focal deficits. Diffuse weakness SKIN: No rashes. Assessment: Anemia, acute on chronic, rule out GI blood loss anemia History of atrial fibrillation Possible liver mass, undergoing further workup with oncology following History of Marfan syndrome Ruled out cirrhosis of the liver Hypertension Hyperlipidemia History of aortic surgery GI prophylaxis DVT prophylaxis Full code Plan: Recommend to continue with current medications and management with GI following. Patient underwent bowel prep and will be undergoing EGD/colonoscopy this afternoon. Patient currently n.p.o. and will await GI recommendations regarding resuming diet Hemoglobin is stable above 8 with no active bleeding noted. Will monitor closely and repeat labs in the a.m. and transfuse if 7 or less Family at the bedside with questions and concerns that were answered to her ability although awaiting further recommendations from GI. Family is quite concerned of him being discharged home as he has been so ill over the last 2 months. Will discuss with other consultations regarding discharge planning Continue Protonix Due to multiple complex medical issues, prognosis is guarded Possible discharge in the next 24 hours Recommend to continue holding anticoagulation at this time and close outpatient follow-up with cardiology. The impression and plan of care has been dictated by Irma Merritt, nurse practitioner as directed. Dr. Ronnie MD I have performed a history and examination and MDM of this patient, discussed the same with the dictator, and agree with the dictator's assessment and plan as written ,documented as a scribe. Based on total visit time, I have performed more than 50% of the visit. Any additional findings or plans will be noted. Objective - Vital Signs Vital signs: Vital Signs Temp 97.5 F L 10/23/23 08:00 Pulse 84 10/23/23 08:00 Resp 18 10/23/23 08:57 BP 157/96 10/23/23 08:00 Pulse Ox 99 10/23/23 08:00 FiO2 Intake & Output 10/22/23 10/23/23 10/23/23 18:59 06:59 18:59 Intake Total 236 Balance 236 Weight 105.233 kg Intake: Oral 236 Other: Voiding Method Bedside Commode Bedside Commode # Voids 1 2 # Bowel Movements 2 - Labs CBC & Chem 7: 10/23/23 06:53 10/23/23 06:53 Labs: Abnormal Lab Results - Last 24 Hours (Table) 10/22/23 10/23/23 10/23/23 Range/Units 07:03 06:53 06:53 RBC 3.06 L (4.40-5.60) X 10*6/uL Hgb 7.6 L (13.0-17.0) g/dL Hct 24.8 L (39.6-50.0) % MCH 24.8 L (27.0-32.0) pg MCHC 30.6 L (32.0-37.0) g/dL RDW 18.5 H (11.5-14.5) % Lymphocytes # 0.47 L (0.90-5.00) X 10*3/uL Eosinophils # 0 L (0.04-0.35) X 10*3/uL Potassium 3.3 L (3.5-5.5) mmol/L Anion Gap 12.70 H (4.00-12.00) mmol/L BUN/Creatinine Ratio 8.58 L (12.00-20.00) Ratio Calcium 8.5 L (8.7-10.3) mg/dL Total Bilirubin 1.5 H (0.3-1.2) mg/dL Conjugated Bilirubin 0.64 H (0.20-0.40) mg/dL AST 12 L (14-35) U/L Albumin 3.6 L (3.8-4.9) g/dL Albumin/Globulin Ratio 1.38 L (1.60-3.17) Ratio
[2023-10-24 10:23] LABS: Basophils # (A) 0.02 X 10*3/uL (0.00-0.10); Basophils % (A) 0.4 %; Eosinophils # (A) 0 X 10*3/uL (0.04-0.35); Eosinophils % (A) 0 %; HCT 22.3 % (39.6-50.0); HGB 6.7 g/dL (13.0-17.0); Lymphocytes # (A) 0.46 X 10*3/uL (0.90-5.00); MCH 24.5 pg (27.0-32.0); MCV 81.7 FL (80.0-97.0); Mean Platelet Volume 10.8 FL (9.5-12.2); Monocytes # (A) 0.25 X 10*3/uL (0.20-1.00); Monocytes % (A) 4.9 %; NRBC Per 100 WBC 0 X 10*3/uL (0.00-0.01); Neutrophils # (A) 4.35 X 10*3/uL (1.80-7.70); Neutrophils % (A) 85.1 %; Platelet Count 284 X 10*3/uL (140-440); RBC 2.73 X 10*6/uL (4.40-5.60); RBC Morphology Normal (Normal); RDW 19.1 % (11.5-14.5); WBC 5.11 X 10*3/uL (4.50-10.00)
[2023-10-24 10:48] LABS: Blood Urea Nitrogen 10.2 mg/dL (9.0-27.0); Glucose 93 mg/dL (70-110); Magnesium 1.7 mg/dL (1.5-2.4)
[2023-10-24 10:49] LABS: ALT 8 U/L (10-49); AST 11 U/L (14-35); Albumin 3.3 g/dL (3.8-4.9); Albumin/Globulin Ratio 1.57 Ratio (1.60-3.17); Alkaline Phosphatase 73 U/L (41-126); Calcium 7.9 mg/dL (8.7-10.3); Carbon Dioxide 22.3 mmol/L (21.6-31.8); Chloride 108 mmol/L (96-109); Globulin 2.1 g/dL (1.6-3.3); Potassium 3.4 mmol/L (3.5-5.5); Sodium 142 mmol/L (135-145); Total Bilirubin 0.9 mg/dL (0.3-1.2); Total Protein 5.4 g/dL (6.2-8.2)
[2023-10-24] MEDS: FUROSEMIDE 10 MG/ML 2 ML VIAL IV ONE (17:06)
[2023-10-24 22:07] LABS: Anisocytosis Slight; Basophils % (A) 0 %; Eosinophils % (A) 0 %; HGB 8.6 gm/dL (13.0-17.5); Hypochromasia Marked; Lymphocytes # (A) 0.6 k/uL (1.0-4.8); Lymphocytes % (A) 13 %; MCHC 30.6 g/dL (31.0-37.0); Mean Platelet Volume 8.2; Monocytes # (A) 0.2 k/uL (0-1.0); Monocytes % (A) 4 %; Neutrophils # (A) 4.1 k/uL (1.3-7.7); Neutrophils % (A) 83 %; Platelet Count 304 k/uL (150-450); Poikilocytosis Slight; RBC 3.29 m/uL (4.30-5.90); RDW 17.7 % (11.5-15.5)
--- NOTE | 2023-10-25 03:16 | P.PN ---
Subjective Progress Note Date: 10/24/23 This is a 62-year-old male who was recently admitted with anemia being closely monitored by GI. Patient was initially scheduled in the outpatient setting for endoscopy for continued anemia although hemoglobin was found to be low and sent here for further evaluation. GI following and patient has completed the bowel prep awaiting to undergo EGD/colonoscopy today. Hemoglobin is stable with no active bleeding noted at this time. Oncology following as well as there was concern for possible liver mass. Awaiting MRI as well. Patient is currently afebrile and n.p.o. with no reports of nausea or vomiting. Patient reports tolerated the bowel prep with no difficulties and was having greenish noted s tool with no black, tarry, or bloody stools noted. Will follow-up on repeat labs and continue to monitor closely. 10/24/2023 Patient is seen in follow-up today status post EGD/colonoscopy with GI. no active bleeding noted and holding on anticoagulation as of now. Hemoglobin was found to be 6.7 this morning and will transfuse with 2 units of PRBC with Lasix in between and follow-up on repeat CBC. Transfuse if 7 or less. No active bleeding noted per patient and patient has been resumed on diet and tolerating. Patient is afebrile with no reports of chest pain or shortness of breath. Will discuss further with GI regarding possible capsule study. Review of systems: Constitutional: No reports of fatigue, fever, or chills Cardiovascular: No reports of chest pain or palpitations Respiratory: No reports of shortness of breath or cough GI: No reports of nausea, no reports of vomiting, reports tolerating diet : No reports of dysuria or retention Neurovascular: reports of generalized weakness All medications have been reviewed PHYSICAL EXAMINATION: GENERAL: The patient is alert and oriented x3, Well developed, well nourished. Elderly appearing HEENT: Pupils are round and equally reacting to light. EOMI. no scleral icterus. No conjunctival pallor. Normocephalic, atraumatic. No pharyngeal erythema. No thyromegaly. CARDIOVASCULAR: S1 and S2 muffled PULMONARY: diminished breath sounds bilaterally with no wheezing or rhonchi noted. ABDOMEN: soft. Nontender on exam. obese. non-distended, normoactive bowel sounds. No palpable organomegaly. MUSCULOSKELETAL: No joint swelling or deformity. EXTREMITIES: No cyanosis, clubbing, or pedal edema. NEUROLOGICAL: Gross neurological examination did not reveal any focal deficits. Diffuse weakness SKIN: No rashes. Assessment: Anemia, acute on chronic, ruled out GI blood loss anemia, iron deficiency noted status post transfusions given History of atrial fibrillation, currently anticoagulation on hold due to anemia Possible liver mass, undergoing further workup with oncology following History of Marfan syndrome Ruled out cirrhosis of the liver Hypertension Hyperlipidemia History of aortic surgery GI prophylaxis DVT prophylaxis Full code Plan: Recommend to continue with current medications and management with GI following. Patient is status post EGD/colonoscopy. No active bleeding noted Hemoglobin is 6.7 with no active bleeding noted. Will give 2 units and follow- up on repeat labs. transfuse if 7 or less Family at the bedside with questions and concerns that were answered to her ability although awaiting further recommendations from GI. Family is quite concerned of him being discharged home as he has been so ill over the last 2 months. Will attempt to contact GI regarding possible capsule study Continue Protonix twice daily Due to multiple complex medical issues, prognosis is guarded Repeat labs ordered for a.m. Replace electrolytes per protocol and transfuse if hemoglobin is 7 or less Recommend to continue holding anticoagulation at this time and close outpatient follow-up with cardiology. The impression and plan of care has been dictated by Irma Merritt, nurse practitioner as directed. Dr. Ronnie MD I have performed a history and examination and MDM of this patient, discussed the same with the dictator, and agree with the dictator's assessment and plan as written ,documented as a scribe. Based on total visit time, I have performed more than 50% of the visit. Any additional findings or plans will be noted. Objective - Vital Signs Vital signs: Vital Signs Temp 98.4 F 10/24/23 20:20 Pulse 72 10/24/23 20:20 Resp 16 10/24/23 20:20 BP 150/86 10/24/23 20:20 Pulse Ox 97 10/24/23 20:00 FiO2 Intake & Output 10/24/23 10/24/23 10/25/23 06:59 18:59 06:59 Intake Total 1626 310 Balance 1626 310 Intake: Oral 1316 Blood Product 310 310 Rc As-1 Unit 310 [id number] Rc As-1 Unit 0 310 [id number] Other: Voiding Method Bedside Commode Toilet Toilet Bedside Commode Bedside Commode # Voids 1 3 2 - Labs CBC & Chem 7: 10/24/23 21:43 10/24/23 04:36 Labs: Abnormal Lab Results - Last 24 Hours (Table) 10/24/23 10/24/23 10/24/23 Range/Units 04:36 04:36 12:01 RBC 2.73 L (4.40-5.60) X 10*6/uL Hgb 6.7 A* (13.0-17.0) g/dL Hct 22.3 L (39.6-50.0) % MCH 24.5 L (27.0-32.0) pg MCHC 30.0 L (32.0-37.0) g/dL RDW 19.1 H (11.5-14.5) % Lymphocytes # 0.46 L (0.90-5.00) X 10*3/uL Eosinophils # 0 L (0.04-0.35) X 10*3/uL Potassium 3.4 L (3.5-5.5) mmol/L BUN/Creatinine Ratio 8.50 L (12.00-20.00) Ratio Calcium 7.9 L (8.7-10.3) mg/dL AST 11 L (14-35) U/L ALT 8 L (10-49) U/L Total Protein 5.4 L (6.2-8.2) g/dL Albumin 3.3 L (3.8-4.9) g/dL Albumin/Globulin Ratio 1.57 L (1.60-3.17) Ratio Crossmatch See Detail 10/24/23 Range/Units 21:43 RBC 3.29 L (4.40-5.60) X 10*6/uL Hgb 8.6 L (13.0-17.0) g/dL Hct 28.0 L (39.6-50.0) % MCH (27.0-32.0) pg MCHC 30.6 L (32.0-37.0) g/dL RDW 17.7 H (11.5-14.5) % Lymphocytes # 0.6 L (0.90-5.00) X 10*3/uL Eosinophils # (0.04-0.35) X 10*3/uL Potassium (3.5-5.5) mmol/L BUN/Creatinine Ratio (12.00-20.00) Ratio Calcium (8.7-10.3) mg/dL AST (14-35) U/L ALT (10-49) U/L Total Protein (6.2-8.2) g/dL Albumin (3.8-4.9) g/dL Albumin/Globulin Ratio (1.60-3.17) Ratio Crossmatch
[2023-10-25 08:41] LABS: Anisocytosis Slight; Basophils % (A) 0 %; Eosinophils % (A) 0 %; HCT 26.9 % (39.0-53.0); HGB 8.1 gm/dL (13.0-17.5); Hypochromasia Marked; Lymphocytes # (A) 0.4 k/uL (1.0-4.8); Lymphocytes % (A) 10 %; MCH 25.5 pg (25.0-35.0); MCV 85.1 fL (80.0-100.0); Mean Platelet Volume 8.8; Monocytes # (A) 0.2 k/uL (0-1.0); Monocytes % (A) 4 %; Neutrophils # (A) 3.7 k/uL (1.3-7.7); Neutrophils % (A) 84 %; Platelet Count 279 k/uL (150-450); Poikilocytosis Slight; RBC 3.17 m/uL (4.30-5.90); RDW 17.8 % (11.5-15.5); WBC 4.4 k/uL (3.8-10.6)
[2023-10-25 09:13] LABS: African American GFR (CKD) 82 (>60 ml/min/1.73 sqM); Anion Gap 5 mmol/L; Blood Urea Nitrogen 12 mg/dL (9-20); Carbon Dioxide 23 mmol/L (22-30); Chloride 112 mmol/L (98-107); Glucose 90 mg/dL (74-99); Magnesium 1.5 mg/dL (1.6-2.3); Non-African American GFR(CKD) 71 (>60 ml/min/1.73 sqM); Potassium 3.1 mmol/L (3.5-5.1); Sodium 140 mmol/L (137-145)
[2023-10-25] MEDS ORDERED: Potassium Replacement Protocol 1 EACH MISC MISCELLANE PRN (10:04)
[2023-10-25] MEDS ORDERED: Magnesium Replacement Protocol 1 EACH MISC MISCELLANE PRN (10:04)
[2023-10-25] MEDS: POTASSIUM CHLORIDE ER 20 MEQ TAB.ER PO SCH (11:01)
[2023-10-25] MEDS: MAGNESIUM SULFATE-D5W PMX 1 GM in DEXTROSE/WATER 1 100ML.BAG IVPB SCH (11:01)
--- NOTE | 2023-10-25 15:00 | P.PN ---
Subjective Progress Note Date: 10/25/23 This is a 62-year-old male who was recently admitted with anemia being closely monitored by GI. Patient was initially scheduled in the outpatient setting for endoscopy for continued anemia although hemoglobin was found to be low and sent here for further evaluation. GI following and patient has completed the bowel prep awaiting to undergo EGD/colonoscopy today. Hemoglobin is stable with no active bleeding noted at this time. Oncology following as well as there was concern for possible liver mass. Awaiting MRI as well. Patient is currently afebrile and n.p.o. with no reports of nausea or vomiting. Patient reports tolerated the bowel prep with no difficulties and was having greenish noted s tool with no black, tarry, or bloody stools noted. Will follow-up on repeat labs and continue to monitor closely. 10/24/2023 Patient is seen in follow-up today status post EGD/colonoscopy with GI. no active bleeding noted and holding on anticoagulation as of now. Hemoglobin was found to be 6.7 this morning and will transfuse with 2 units of PRBC with Lasix in between and follow-up on repeat CBC. Transfuse if 7 or less. No active bleeding noted per patient and patient has been resumed on diet and tolerating. Patient is afebrile with no reports of chest pain or shortness of breath. Will discuss further with GI regarding possible capsule study. 10/25/2023 Patient is seen and evaluated in follow-up hemoglobin is 8.1 today status post 2 units yesterday. Potassium is 3.0 as well as low magnesium of 1.6 and will replace per protocol recommend follow-up labs. Awaiting to discuss further with GI about possible small bowel capsule study as patient continues to have drops in hemoglobin. Patient is afebrile with no reported chest pain or shortness of breath. Will continue to monitor hemoglobin closely. Review of systems: Constitutional: No reports of fatigue, fever, or chills Cardiovascular: No reports of chest pain or palpitations Respiratory: No reports of shortness of breath or cough GI: No reports of nausea, no reports of vomiting, reports tolerating diet : No reports of dysuria or retention Neurovascular: reports of generalized weakness All medications have been reviewed PHYSICAL EXAMINATION: GENERAL: The patient is alert and oriented x3, Well developed, well nourished. Elderly appearing HEENT: Pupils are round and equally reacting to light. EOMI. no scleral icterus. No conjunctival pallor. Normocephalic, atraumatic. No pharyngeal erythema. No thyromegaly. CARDIOVASCULAR: S1 and S2 muffled PULMONARY: diminished breath sounds bilaterally with no wheezing or rhonchi noted. ABDOMEN: soft. Nontender on exam. obese. non-distended, normoactive bowel sounds. No palpable organomegaly. MUSCULOSKELETAL: No joint swelling or deformity. EXTREMITIES: No cyanosis, clubbing, or pedal edema. NEUROLOGICAL: Gross neurological examination did not reveal any focal deficits. Diffuse weakness SKIN: No rashes. Assessment: Anemia, acute on chronic, ruled out GI blood loss anemia, iron deficiency noted status post transfusions given Status post EGD/colonoscopy showing mild antral gastritis and colonoscopy revealed polyp status post polypectomy with no active bleeding noted History of atrial fibrillation, currently anticoagulation on hold due to anemia Possible liver mass, undergoing further workup with oncology following History of Marfan syndrome Ruled out cirrhosis of the liver Hypertension Hyperlipidemia History of aortic surgery GI prophylaxis DVT prophylaxis Full code Plan: Recommend to continue with current medications and management with GI following. Patient is status post EGD/colonoscopy. No active bleeding noted Hemoglobin is just above 8 with no active bleeding noted. Will repeat CBC in a.m. and attempt to discuss further with GI regarding possible small capsule study. No GI services currently at this time. Continue Protonix twice daily Magnesium and potassium on the lower side will replace per protocol and recheck labs in a.m. Due to multiple complex medical issues, prognosis is guarded Recommend to continue holding anticoagulation at this time and close outpatient follow-up with cardiology. The impression and plan of care has been dictated by Irma Merritt, nurse practitioner as directed. Dr. Ronnie MD I have performed a history and examination and MDM of this patient, discussed the same with the dictator, and agree with the dictator's assessment and plan as written ,documented as a scribe. Based on total visit time, I have performed more than 50% of the visit. Any additional findings or plans will be noted. Objective - Vital Signs Vital signs: Vital Signs Temp 97.9 F 10/25/23 08:00 Pulse 82 10/25/23 08:00 Resp 16 10/25/23 08:00 BP 153/90 10/25/23 08:00 Pulse Ox 98 10/25/23 08:00 FiO2 Intake & Output 10/24/23 10/25/23 10/25/23 18:59 06:59 18:59 Intake Total 1626 310 Balance 1626 310 Intake: Oral 1316 Blood Product 310 310 Rc As-1 Unit 310 [id number] Rc As-1 Unit 0 310 [id number] Other: Voiding Method Toilet Toilet Toilet Bedside Commode Bedside Commode Bedside Commode # Voids 3 2 - Labs CBC & Chem 7: 10/25/23 07:47 10/25/23 07:47 Labs: Abnormal Lab Results - Last 24 Hours (Table) 10/24/23 10/24/23 10/24/23 Range/Units 04:36 04:36 12:01 RBC 2.73 L (4.40-5.60) X 10*6/uL Hgb 6.7 A* (13.0-17.0) g/dL Hct 22.3 L (39.6-50.0) % MCH 24.5 L (27.0-32.0) pg MCHC 30.0 L (32.0-37.0) g/dL RDW 19.1 H (11.5-14.5) % Lymphocytes # 0.46 L (0.90-5.00) X 10*3/uL Eosinophils # 0 L (0.04-0.35) X 10*3/uL Potassium 3.4 L (3.5-5.5) mmol/L Chloride (98-107) mmol/L BUN/Creatinine Ratio 8.50 L (12.00-20.00) Ratio Calcium 7.9 L (8.7-10.3) mg/dL Magnesium (1.6-2.3) mg/dL AST 11 L (14-35) U/L ALT 8 L (10-49) U/L Total Protein 5.4 L (6.2-8.2) g/dL Albumin 3.3 L (3.8-4.9) g/dL Albumin/Globulin Ratio 1.57 L (1.60-3.17) Ratio Crossmatch See Detail 10/24/23 10/25/23 10/25/23 Range/Units 21:43 07:47 07:47 RBC 3.29 L 3.17 L (4.40-5.60) X 10*6/uL Hgb 8.6 L 8.1 L (13.0-17.0) g/dL Hct 28.0 L 26.9 L (39.6-50.0) % MCH (27.0-32.0) pg MCHC 30.6 L 30.0 L (32.0-37.0) g/dL RDW 17.7 H 17.8 H (11.5-14.5) % Lymphocytes # 0.6 L 0.4 L (0.90-5.00) X 10*3/uL Eosinophils # (0.04-0.35) X 10*3/uL Potassium 3.1 L (3.5-5.5) mmol/L Chloride 112 H (98-107) mmol/L BUN/Creatinine Ratio (12.00-20.00) Ratio Calcium 8.0 L (8.7-10.3) mg/dL Magnesium 1.5 L (1.6-2.3) mg/dL AST (14-35) U/L ALT (10-49) U/L Total Protein (6.2-8.2) g/dL Albumin (3.8-4.9) g/dL Albumin/Globulin Ratio (1.60-3.17) Ratio Crossmatch
[2023-10-26 08:20] VITALS: BP 160/89; PULSE 69; RESP 16; TEMP 98
[2023-10-26 11:13] LABS: Basophils # (A) 0.02 X 10*3/uL (0.00-0.10); Basophils % (A) 0.4 %; Eosinophils # (A) 0 X 10*3/uL (0.04-0.35); Eosinophils % (A) 0 %; HCT 26.2 % (39.6-50.0); Lymphocytes # (A) 0.47 X 10*3/uL (0.90-5.00); Lymphocytes % (A) 9.7 %; MCH 25.6 pg (27.0-32.0); MCHC 30.5 g/dL (32.0-37.0); Monocytes # (A) 0.34 X 10*3/uL (0.20-1.00); NRBC Per 100 WBC 0 X 10*3/uL (0.00-0.01); Neutrophils # (A) 4.02 X 10*3/uL (1.80-7.70); Neutrophils % (A) 82.7 %; Platelet Count 268 X 10*3/uL (140-440); RBC 3.12 X 10*6/uL (4.40-5.60); RDW 18.6 % (11.5-14.5); WBC 4.86 X 10*3/uL (4.50-10.00)
[2023-10-26 11:28] LABS: BUN/Creat Ratio 12.17 Ratio (12.00-20.00); Blood Urea Nitrogen 14.6 mg/dL (9.0-27.0); Calcium 8.1 mg/dL (8.7-10.3); Carbon Dioxide 22.1 mmol/L (21.6-31.8); Chloride 108 mmol/L (96-109); Glucose 93 mg/dL (70-110); Magnesium 1.9 mg/dL (1.5-2.4); Potassium 3.7 mmol/L (3.5-5.5); Sodium 141 mmol/L (135-145)
--- NOTE | 2023-10-27 19:55 | P.DS ---
Providers Date of admission: 10/21/23 09:44 Expected date of discharge: 10/26/23 Attending physician: Arsh Ramos Consults: 10/20/23 18:06 Consult Physician Routine Consulting Provider: Neda Davenport Consult Reason/Comments: anemia, gi bleed? Do you want consulting provider notified?: Yes 10/21/23 08:35 Consult Physician Routine Consulting Provider: Antoine Jaimes Consult Reason/Comments: anemia, possible liver mass Do you want consulting provider notified?: Yes 10/21/23 12:46 Consult Physician Routine Consulting Provider: Ken Davenport Consult Reason/Comments: afib Do you want consulting provider notified?: Yes Primary care physician: [facility] Course: This is a 62-year-old male who was recently admitted with anemia being closely monitored by GI. Patient was initially scheduled in the outpatient setting for endoscopy for continued anemia although hemoglobin was found to be low and sent here for further evaluation. GI following and patient has completed the bowel prep awaiting to undergo EGD/colonoscopy today. Hemoglobin is stable with no active bleeding noted at this time. Oncology following as well as there was concern for possible liver mass. Awaiting MRI as well. Patient is currently afebrile and n.p.o. with no reports of nausea or vomiting. Patient reports tolerated the bowel prep with no difficulties and was having greenish noted stool with no black, tarry, or bloody stools noted. Will follow-up on repeat labs and continue to monitor closely. 10/24/2023 Patient is seen in follow-up today status post EGD/colonoscopy with GI. no active bleeding noted and holding on anticoagulation as of now. Hemoglobin was found to be 6.7 this morning and will transfuse with 2 units of PRBC with Lasix in between and follow-up on repeat CBC. Transfuse if 7 or less. No active bleeding noted per patient and patient has been resumed on diet and tolerating. Patient is afebrile with no reports of chest pain or shortness of breath. Will discuss further with GI regarding possible capsule study. 10/25/2023 Patient is seen and evaluated in follow-up hemoglobin is 8.1 today status post 2 units yesterday. Potassium is 3.0 as well as low magnesium of 1.6 and will replace per protocol recommend follow-up labs. Awaiting to discuss further with GI about possible small bowel capsule study as patient continues to have drops in hemoglobin. Patient is afebrile with no reported chest pain or shortness of breath. Will continue to monitor hemoglobin closely. October 25: Sister and [id number] was at the bedside. Spoke to Celeste from GI. We reviewed Dr. Dandre Davenport's note from Thursday. EGD colonoscopy was unremarkable. Labs the patient to follow-up with Dr. Dandre Davenport outpatient if needed for small bowel study. Capsule study. Also spoke to Chari COBIAN from oncology. Outpatient follow-up with Dr. Jaimes. Patient is advised feeling well. Hemoglobin 8. Repeat CBC in 3 days. Discussion and discharge planning more than 35 minutes PHYSICAL EXAMINATION: GENERAL: The patient is alert and oriented x3, Well developed, well nourished. Elderly appearing HEENT: Pupils are round and equally reacting to light. EOMI. no scleral icterus. No conjunctival pallor. Normocephalic, atraumatic. No pharyngeal erythema. No thyromegaly. CARDIOVASCULAR: S1 and S2 muffled PULMONARY: diminished breath sounds bilaterally with no wheezing or rhonchi noted. ABDOMEN: soft. Nontender on exam. obese. non-distended, normoactive bowel sounds. No palpable organomegaly. MUSCULOSKELETAL: No joint swelling or deformity. EXTREMITIES: No cyanosis, clubbing, or pedal edema. NEUROLOGICAL: Gross neurological examination did not reveal any focal deficits. Diffuse weakness SKIN: No rashes. INVESTIGATIONS, reviewed in the clinical context: 2D echocardiogram: EF 45 to 50%. Moderate pulmonary hypertension. Moderate mitral annular calcification with moderate to severe mitral regurgitation. Moderate tricuspid regurgitation. Liver MRI [October 20] heterogeneous signal enhancement pattern to the liver most likely secondary to congestive heart failure. Observation of the right hepatic lobe segment 5 and segment 7 with peripheral enhancement is indeterminate. These have been seen dating back at least 2016. 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 Liver MRI [October 20] heterogeneous signal enhancement pattern to the liver most likely secondary to congestive heart failure. Observation of the right hepatic lobe segment 5 and segment 7 with peripheral enhancement is indeterminate. These have been seen dating back at least 2016. Dr. Theodore from oncology - Follow-up outpatient -Marfan syndrome. Mental age of 9-year-old -Essential hypertension, for better control Amlodipine. Cozaar. Toprol-XL. -Iron deficiency anemia with normocytic anemia -Persistent atrial fibrillation History of cardiac ablation. Toprol-XL. Xarelto. -Ascending aortic arch graft from warfarin in 2004 -BPH Cardura -Hyperlipidemia Lipitor -Anxiety Paxil -Legal guardian, sister: Mallika Sierra -DNR Disposition: Home Plan - Discharge Summary Discharge Rx Participant: No New Discharge Prescriptions: New amLODIPine [Norvasc] 10 mg PO DAILY #30 tab Losartan [Cozaar] 25 mg PO DAILY #30 tab Continue Terazosin [Hytrin] 5 mg PO HS Atorvastatin [Lipitor] 20 mg PO HS PARoxetine HCL [Paxil] 40 mg PO DAILY Multivitamins, Thera [Multivitamin (formulary)] 1 tab PO DAILY Cholecalciferol [Vitamin D3 (10 Mcg = 400 Iu)] 10 mcg PO DAILY Ferrous Sulfate [Iron (65 MG Elemental)] 325 mg PO DAILY Rivaroxaban [Xarelto] 20 mg PO W/SUPPER Metoprolol Succinate (ER) [Toprol XL] 75 mg PO DAILY Metoprolol Succinate (ER) [Toprol XL] 50 mg PO HS Sodium Chloride Tab 1 gm PO DAILY #60 tab Discontinued lisinopriL 20 mg PO BID Discharge Medication List Atorvastatin [Lipitor] 20 mg PO HS 12/22/18 [History] Multivitamins, Thera [Multivitamin (formulary)] 1 tab PO DAILY 12/22/18 [History] PARoxetine HCL [Paxil] 40 mg PO DAILY 12/22/18 [History] Terazosin [Hytrin] 5 mg PO HS 12/22/18 [History] Ferrous Sulfate [Iron (65 MG Elemental)] 325 mg PO DAILY 05/15/21 [History] Cholecalciferol [Vitamin D3 (10 Mcg = 400 Iu)] 10 mcg PO DAILY 03/18/22 [History] Rivaroxaban [Xarelto] 20 mg PO W/SUPPER 03/18/22 [History] Metoprolol Succinate (ER) [Toprol XL] 75 mg PO DAILY 05/27/23 [History] Metoprolol Succinate (ER) [Toprol XL] 50 mg PO HS 09/30/23 [History] Sodium Chloride Tab 1 gm PO DAILY #60 tab 04/01/24 [Rx] Losartan [Cozaar] 25 mg PO DAILY #30 tab 10/26/23 [Rx] amLODIPine [Norvasc] 10 mg PO DAILY #30 tab 10/26/23 [Rx] Follow up Appointment(s)/Referral(s): Antoine Jaimes [STAFF PHYSICIAN] - 11/24/23 9:30 am Haile Bauer DO [Primary Care Provider] - 1-2 days Neda Davenport MD [STAFF PHYSICIAN] - 1 Week Patient Instructions/Handouts: Acute Kidney Injury (DC) Activity/Diet/Wound Care/Special Instructions: FOLLOW UP DIRECTED, SOONER FOR WORSENING SYMPTOMS, PROBLEMS OR CONCERNS. Discharge Disposition: HOME SELF-CARE
== END 2023-10-26 13:12 | disposition home or self-care (01) | DRG 812 ==
LOC: EC 14:31 → 6NMEDSUR 18:07 → OBSVTOIN 10-21 09:44 → 6NMEDSUR 10-21 16:30
PROVIDERS: ADMIT Hospitalist; ATTEND Hospitalist
PROC: 30233N1 Transfusion of Nonautologous Red Blood Cells into Peripheral Vein, Percutaneous Approach (ICD-10-PCS; principal; 2023-10-20)
PROC: 0DB98ZX Excision of Duodenum, Via Natural or Artificial Opening Endoscopic, Diagnostic (ICD-10-PCS; 2023-10-23)
PROC: 0DB78ZX Excision of Stomach, Pylorus, Via Natural or Artificial Opening Endoscopic, Diagnostic (ICD-10-PCS; 2023-10-23)
PROC: 0DBL8ZZ Excision of Transverse Colon, Via Natural or Artificial Opening Endoscopic (ICD-10-PCS; 2023-10-23 14:50)
DX: D50.8 Other iron deficiency anemias (principal); Q87.40 Marfan syndrome, unspecified; I48.19 Other persistent atrial fibrillation; Q21.12 Patent foramen ovale; I11.0 Hypertensive heart disease with heart failure; I27.20 Pulmonary hypertension, unspecified; I50.9 Heart failure, unspecified; Z66 Do not resuscitate; R16.0 Hepatomegaly, not elsewhere classified; K76.0 Fatty (change of) liver, not elsewhere classified; I08.1 Rheumatic disorders of both mitral and tricuspid valves; I25.10 Atherosclerotic heart disease of native coronary artery without angina pectoris; R41.89 Other symptoms and signs involving cognitive functions and awareness; K44.9 Diaphragmatic hernia without obstruction or gangrene; K29.70 Gastritis, unspecified, without bleeding; D12.3 Benign neoplasm of transverse colon; N40.0 Benign prostatic hyperplasia without lower urinary tract symptoms; K29.50 Unspecified chronic gastritis without bleeding; F41.9 Anxiety disorder, unspecified; D18.09 Hemangioma of other sites; Z79.01 Long term (current) use of anticoagulants; Z79.899 Other long term (current) drug therapy; Z95.1 Presence of aortocoronary bypass graft; Z86.79 Personal history of other diseases of the circulatory system; Z95.2 Presence of prosthetic heart valve
CPT/HCPCS: 36415; 36430; 43239; 45385; 74183; 80048; 80053; 80076; 82105; 82248; 82728; 82746; 83540; 83550; 83735; 85025; 85027; 85045; 85610; 85730; 86850; 86900; 86901; 86920; 88305; 93306; 96361; 96365; 96375; 96376; 99285

== ENCOUNTER → 2024-05-02 | Outpatient (CLI) | payer MEDICARE ==
[2024-05-02 10:01] LABS: African American GFR (CKD) >90 (>60 ml/min/1.73 sqM); Anion Gap 9 mmol/L; Blood Urea Nitrogen 12 mg/dL (9-20); Carbon Dioxide 28 mmol/L (22-30); Chloride 104 mmol/L (98-107); Non-African American GFR(CKD) >90 (>60 ml/min/1.73 sqM); Potassium 3.6 mmol/L (3.5-5.1); Sodium 141 mmol/L (137-145)
[2024-05-02 10:04] LABS: Partial Thromboplastin Time 25.9 sec (22.0-30.0); Prothrombin Time 11.3 sec (10.0-12.5)
[2024-05-02 17:48] LABS: Basophils % (A) 0 %; Eosinophils % (A) 0 %; HCT 42.3 % (39.0-53.0); HGB 13.2 gm/dL (13.0-17.5); Hypochromasia Moderate; Lymphocytes # (A) 0.5 k/uL (1.0-4.8); Lymphocytes % (A) 9 %; MCHC 31.1 g/dL (31.0-37.0); MCV 86.9 fL (80.0-100.0); Mean Platelet Volume 9.7; Monocytes # (A) 0.3 k/uL (0-1.0); Monocytes % (A) 5 %; Neutrophils # (A) 4.7 k/uL (1.3-7.7); Neutrophils % (A) 84 %; Platelet Count 186 k/uL (150-450); RBC 4.87 m/uL (4.30-5.90); RDW 15.7 % (11.5-15.5); WBC 5.6 k/uL (3.8-10.6)
== END | disposition home or self-care (01) ==
LOC: LABWHC1 09:23
PROVIDERS: ATTEND Internal Medicine
DX: R31.29 Other microscopic hematuria (principal)
CPT/HCPCS: 36415; 80051; 82565; 84520; 85025; 85610; 85730; 86850; 86900; 86901

== ENCOUNTER → 2024-05-03 | Day surgery (SDC) | payer MEDICARE ==
[2024-05-03] MEDS: DESMOPRESSIN ACETATE 32 MCG in SODIUM CHLORIDE 0.9% 50 ML IVPB STA (09:31)
[2024-05-03 09:46] VITALS: RESP 18; TEMP 99.1
[2024-05-03] MEDS: HYDROmorphone 0.5 MG/0.5 ML SYRINGE IVP PRN (10:39)
[2024-05-03] MEDS: ALPRAZolam 0.5 MG TAB PO STA (10:45)
--- NOTE | 2024-05-03 12:22 | CT ---
EXAMINATION TYPE: CT biopsy renal LT DATE OF EXAM: 05/03/2024 12:03 PM COMPARISON: 10/21/2023 CLINICAL INDICATION:Male, 63 years old with history of R31.29 OTHER MICROSCOPIC HEMATURIA; OTHER MICR OSCOPIC HEMATURIA TECHNIQUE: CT guided percutaneous random left kidney using coaxial method. Total fluoroscopy time was seconds. CT DLP: 5188 mGycm, Automated exposure control for dose reduction was used. FINDINGS: The procedure was explained to the patient including risks of bleeding, bruising, infection, damage t o nearby organs and need for additional therapy including potential surgery. All questions were answ ered and consent was obtained. The previous studies were reviewed. The patient was placed on the CT couch in the supine position. The overlying skin was marked and prepped using sterile method. Timeout was taken per protocol. Follo wing administration of conscious sedation and local anesthesia a 19 gauge coaxial needle was introd uced on the left kidney . Multiple 20 gauge coaxial biopsies were then obtained. Following the pr ocedure the needle was removed and sterile dressing was applied to the percutaneous site. Post biops y imaging demonstrated no evidence of . Patient was taken for postprocedure observation in stable con dition. IMPRESSIONS: 1. Status post percutaneous left kidney random biopsy as described above. Pathology results pending. 2. Technically difficult exam secondary to patient respiratory movement of the kidney. no SEDATION TECHNIQUE: CT guided percutaneous biopsy of using coaxial method. One or more CT dose reduction strategies were utilized during this examination. Total CT dose mGycm. Total fluoroscopy time was seconds. FINDINGS: The procedure was explained to the patient including risks of bleeding, bruising, infection, damage t o nearby organs and need for additional therapy including potential surgery. All questions were answ ered and consent was obtained. The previous studies were reviewed. The patient was placed on the CT couch in the supine position. The overlying skin was marked and prepped using sterile method. Timeout was taken per protocol. Follo wing administration of local anesthesia a 17 gauge coaxial needle was introduced on the . The coaxia l needle tip was directed into the mass with CT guidance. Multiple 18 gauge coaxial biopsies were th en obtained. Following the procedure the needle was removed and sterile dressing was applied to th e percutaneous site. Post biopsy imaging demonstrated no evidence of . Patient was taken for postpro cedure observation in stable condition. IMPRESSIONS: Status post percutaneous LOCATION mass biopsy as described above. Pathology results pending. [facility], , 05/03/2024 12:19 PM
[2024-05-03 14:26] VITALS: BP 144/82; PULSE 74
== END ==
LOC: RADPROMAIN 07:48
PROVIDERS: ATTEND Internal Medicine
DX: I12.9 Hypertensive chronic kidney disease with stage 1 through stage 4 chronic kidney disease, or unspecified chronic kidney disease (principal); N18.9 Chronic kidney disease, unspecified; I48.91 Unspecified atrial fibrillation; E78.5 Hyperlipidemia, unspecified; E87.6 Hypokalemia; Z79.84 Long term (current) use of oral hypoglycemic drugs; Z79.01 Long term (current) use of anticoagulants; Z79.899 Other long term (current) drug therapy
CPT/HCPCS: 36415; 50200; 77012; J2597; J1171

== ENCOUNTER → 2024-07-29 | Outpatient (CLI) | payer MEDICARE ==
--- NOTE | 2024-07-29 13:26 | CT ---
EXAMINATION TYPE: CT abdomen wo/w con CT DLP: 2155.4 mGycm, Automated exposure control for dose reduction was used. DATE OF EXAM: 07/29/2024 1:13 PM COMPARISON: CT left renal biopsy 05/03/2024, MR liver 10/21/2023, CT abdomen and pelvis 09/30/2023, CTA thoracoabdominal pelvis aorta at 08/18/2016 CLINICAL INDICATION:Male, 63 years old with history of HEPATOMEGALY, R16.0; f/u hepatomegaly TECHNIQUE: Standard CT of the abdomen before and after the uneventful administration of 100 cc of I sovue-300 intravenously. Oral contrast was administered. Coronal and sagittal reformats were performe d. FINDINGS: LOWER CHEST: Coronary artery calcifications. Mild cardiomegaly. Dense mitral annulus calcifications. Stable posterior right lower lobe 3 mm pulmonary nodule (series 4, image 15). Considered benign. Punc gupta right lower lobe calcified granuloma. ABDOMEN LIVER: The liver measures 16.1 cm in CC dimension. Noncirrhotic morphology. Stable inferior right hep atic lobe tip 3.7 cm heterogenous lesion (series 7, image 37). Previously seen diffuse heterogenous a ppearance of the liver parenchyma was not well appreciated and exam. GALLBLADDER AND BILE DUCTS: Unremarkable. PANCREAS: Unremarkable. SPLEEN: Unremarkable. ADRENAL GLANDS: Unremarkable. KIDNEYS AND URETERS: No evidence of hydronephrosis or renal calculus. The kidneys enhance symmetrical ly. Left renal 3.3 cm cyst. Additional bilateral subcentimeter hypodense foci which are too small to categorize but likely represent cysts. Contrast is demonstrated within both collecting systems on the delayed phase. STOMACH AND BOWEL: Stomach and duodenum are unremarkable. Enteric contrast reaches the mid small sylvia l. No focal bowel wall thickening or surrounding inflammatory changes. No evidence of bowel obstructi on. PERITONEUM: No evidence of pneumoperitoneum or free fluid. VASCULATURE: Mild atherosclerotic calcifications are present throughout the abdominal aorta and its b ranches. No evidence of aortic aneurysm. MUSCULOSKELETAL: No acute osseous abnormalities. Moderate disc degeneration changes are present throu ghout the thoracolumbar spine. LYMPH NODES: No evidence for lymphadenopathy. SOFT TISSUE/ABDOMINAL WALL: Tiny fat filled umbilical hernia. IMPRESSION: 1. Stable right inferior hepatic lobe 3.7 cm heterogenous lesion dating back to 2016. Probable heman giomas/atypical hemangioma due to minimal change in size dating back to 2017. 2. Previously seen heterogenous appearance of the liver is not appreciated on today's exam. [facility], , 07/29/2024 1:24 PM
== END | disposition home or self-care (01) ==
LOC: RADCTMAIN 12:04
PROVIDERS: ATTEND Family Medicine
DX: K76.9 Liver disease, unspecified (principal); R16.0 Hepatomegaly, not elsewhere classified
CPT/HCPCS: 74170; Q9967